=== PATIENT | male | born 1955 | race Caucasian/White ===

== ENCOUNTER → 2017-10-06 | Outpatient (CLI) | payer BC ==
[~2017-10-06] MED LIST: ALPR0.5T PO; CARV6.25 PO; CIPR500T78 PO; CLOP75TA69 PO; FENO145T20; FNST5T PO; HYDR-3876 PO; HYDR1TAB86 PO; HYOS0.1216 PO; NITR-68 PO; NITR0.4T39 SL; NITR100C3 PO; NTR.4SL SL; OMEP20CA12 PO; OXYC-12 PO; PHEN200T27 PO; RANI150T15 PO; TAMS0.4C98 PO; TMSL.4C PO; TRAM50TA2 PO
== END ==
LOC: CARD 11:52
PROVIDERS: ATTEND Internal Medicine Cardiovascular Disease
DX: I25.10 Atherosclerotic heart disease of native coronary artery without angina pectoris (principal); R06.02 Shortness of breath; G45.9 Transient cerebral ischemic attack, unspecified; R42 Dizziness and giddiness; Z87.891 Personal history of nicotine dependence
CPT/HCPCS: 93306

== ENCOUNTER 2020-05-04 16:56 | Observation (INO) | payer MEDICARE, OTHER ==
[~2020-05-04] VITALS: Ht 177.8 cm; Wt 72.6 kg
[~2020-05-04 16:56] MED LIST changes: +ASPI-983 PO; -FENO145T20; +FENO145T26; +OMEP20TA33 PO; +OMG1KC PO; +PANT40SU PO; +RANI-613 PO; -RANI150T15 PO; +ROSU5TAB PO; -TAMS0.4C98 PO; +TRM50T PO
[2020-05-04] MEDS ORDERED: ASPIRIN 81 MG CHEW (CHILDREN'S ASA) PO ONE (17:00)
--- NOTE | 2020-05-04 17:21 | ED Chest Pain ---
General Stated Complaint: CP Source: patient Exam Limitations: no limitations History of Present Illness Date Seen by Provider: May 04, 2020 Time Seen by Provider: 17:16 Initial Comments To ER with reports of chest pain. This pain awakened was described as tight and heavy and was noticed immediately upon awakening this morning. He did have some sweating even while at rest in his house and the air conditioning. This reminds him of his previous heart attacks. He has 3 stents, 2 were placed in [place] and one was placed here by Dr. Arlen nunez states. He lives in [facility]. He went to [facility] 3 weeks ago with a fever of 103 and vomiting. He thought he had coronavirus but was not tested for it. He has been without any symptoms such as cough shortness of breath fevers for 2 weeks now. He did miss one week of his Plavix at the end of March but has taken it for the entire month of April. He missed it at the end of March because of the nausea and vomiting associated with his illness. He took 4 nitroglycerin sublingual today which did help his pain. Primary care provider is Dr. Savage in [facility]. At the time of arrival to ER he is pain-free. 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 (baby aspirin this morning) NTG SL TRANSFORMER REPAIRER: Yes Associated Symptoms: diaphoresis; No nausea/vomiting Allergies and Home Medications Allergies Coded Allergies: ciprofloxacin (Unverified Allergy, Mild, RASH, 12/26/13) PT STATES HE CAN TAKE LEVAQUIN WITHOUT PROBLEM Penicillins (Verified Allergy, Unknown, 02/10/16) Sulfa (Sulfonamide Antibiotics) (Verified Allergy, Unknown, 02/10/16) ketorolac (Verified Allergy, Unknown, 02/10/16) naproxen (Verified Allergy, Unknown, 02/10/16) Home Medications Alprazolam 0.5 Mg Tablet, 0.5 MG PO TID PRN for ANXIETY, (Reported) Aspirin 81 Mg Tablet., 81 MG PO DAILY Prescribed by: JUANY MILLER on 06/17/18 1339 Clopidogrel Bisulfate 75 Mg Tablet, 75 MG PO DAILY, (Reported) Nitroglycerin 0.4 Mg Tab.subl, 0.4 MG SL UD PRN for CHEST PAIN, (Reported) [place] 3 Polyunsat Fatty Acids 1,000 Mg Cap, 1,000 MG PO BID WITH MEALS Prescribed by: MYA BRAND on 06/17/18 0738 Pantoprazole Sodium 40 Mg Granpkt.dr, 40 MG PO DAILY Prescribed by: TE PAYNE on 06/16/18 09 Rosuvastatin Calcium 5 Mg Tablet, 5 MG PO DAILY Prescribed by: TE PAYNE on 06/16/18 09 Tramadol HCl 50 Mg Tablet, 50-100 MG PO QID PRN for PAIN-MODERATE, (Reported) Patient Home Medication List Home Medication List Reviewed: Yes Review of Systems Review of Systems Constitutional: see HPI; No chills; diaphoresis; No fever EENTM: No Symptoms Reported Respiratory: See HPI; Denies Cough, Denies Orthopnea, Denies Shortness of Air Cardiovascular: See HPI, Chest Pain; Denies Palpitations, Denies Syncope Gastrointestinal: Denies Abdominal Pain, Denies Nausea, Denies Vomiting Genitourinary: No Symptoms Reported Musculoskeletal: no symptoms reported Skin: no symptoms reported Psychiatric/Neurological: No Symptoms Reported Endocrine: No Symptoms Reported Past Gufoyjr-Dqwnhy-Nhebdz Hx Patient Social History Drug of Choice: marijuana 2nd Hand Smoke Exposure: Yes Recent Hopitalizations: No Seasonal Allergies Seasonal Allergies: No Past Medical History Surgeries: Yes (testicle removed, hernia repair) Coronary Stent Respiratory: No Cardiac: Yes Coronary Artery Disease, Heart Attack Neurological: Yes Reproductive Disorders: No Genitourinary: No Kidney Stones Gastrointestinal: No Musculoskeletal: No Endocrine: No HEENT: No Cancer: No Psychosocial: No Integumentary: No Blood Disorders: No Adverse Reaction/Blood Tranf: No Family Medical History Abdominal aortic aneurysm G8 BROTHER Alcoholism 19 FATHER Cardiovascular disease 19 MOTHER G8 BROTHER Cataracts PATERNAL GRANDFATHER Diabetes mellitus 19 MOTHER Gastroenteritis 19 MOTHER Hypercholesterolemia 19 MOTHER Hypertension 19 MOTHER G8 BROTHER Myocardial infarction 19 MOTHER G8 BROTHER Neoplasm 19 FATHER (LUNG CANCER) No Pertinent Family Hx Physical Exam Vital Signs Vital Signs - First Documented 05/04/20 05/04/20 17:02 17:04 Temp 36.7 Pulse 61 Resp 20 B/P (MAP) 163/94 (117) Pulse Ox 98 O2 Delivery Room Air Capillary Refill : Height, Weight, BMI Height: 5'10.00" Weight: 168lbs. 8.0oz. [id number]; 24.2 BMI Method:Stated General Appearance: No Apparent Distress, WD/WN, Other (alert and oriented. No diaphoresis, asymptomatic at this time.) Neck: Full Range of Motion, Normal Inspection Respiratory: No Accessory Muscle Use, No Respiratory Distress Cardiovascular: Regular Rate, Rhythm, Normal Peripheral Pulses, Other (his EKG is normal sinus rhythm without ectopy or any ST segment changes) Gastrointestinal: Normal Bowel Sounds, Non Tender, Soft Neurologic/Psychiatric: Alert, Oriented x3 Skin: Normal Color, Warm/Dry Progress/Results/Core Measures Results/Orders Lab Results Laboratory Tests Test 05/04/20 17:06 Range/Units White Blood Count 12.6 H 4.3-11.0 10^3/uL Red Blood Count 5.19 4.35-5.85 10^6/uL Hemoglobin 15.8 13.3-17.7 G/DL Hematocrit 47 40-54 % Mean Corpuscular Volume 91 80-99 FL Mean Corpuscular Hemoglobin 30 25-34 PG Mean Corpuscular Hemoglobin Concent 33 32-36 G/DL Red Cell Distribution Width 13.2 10.0-14.5 % Platelet Count 309 130-400 10^3/uL Mean Platelet Volume 10.2 7.4-10.4 FL Neutrophils (%) (Auto) 74 42-75 % Lymphocytes (%) (Auto) 15 12-44 % Monocytes (%) (Auto) 9 0-12 % Eosinophils (%) (Auto) 1 0-10 % Basophils (%) (Auto) 0 0-10 % Neutrophils # (Auto) 9.4 H 1.8-7.8 X 10^3 Lymphocytes # (Auto) 1.9 1.0-4.0 X 10^3 Monocytes # (Auto) 1.2 H 0.0-1.0 X 10^3 Eosinophils # (Auto) 0.1 0.0-0.3 10^3/uL Basophils # (Auto) 0.0 0.0-0.1 10^3/uL Prothrombin Time 12.7 12.2-14.7 SEC INR Comment 0.9 0.8-1.4 Activated Partial Thromboplast Time 31 24-35 SEC Sodium Level 141 135-145 MMOL/L Potassium Level 4.4 3.6-5.0 MMOL/L Chloride Level 106 98-107 MMOL/L Carbon Dioxide Level 23 21-32 MMOL/L Anion Gap 12 5-14 MMOL/L Blood Urea Nitrogen 16 7-18 MG/DL Creatinine 0.91 0.60-1.30 MG/DL Estimat Glomerular Filtration Rate > 60 BUN/Creatinine Ratio 18 Glucose Level 101 70-105 MG/DL Calcium Level 9.6 8.5-10.1 MG/DL Corrected Calcium 9.4 8.5-10.1 MG/DL Magnesium Level 2.3 1.6-2.4 MG/DL Total Bilirubin 0.9 0.1-1.0 MG/DL Aspartate Amino Transf (AST/SGOT) 127 H 5-34 U/L Alanine Aminotransferase (ALT/SGPT) 95 H 0-55 U/L Alkaline Phosphatase 74 40-136 U/L Myoglobin 21.8 10.0-92.0 NG/ML Troponin I < 0.028 <0.028 NG/ML B-Type Natriuretic Peptide 46.3 <100.0 PG/ML Total Protein 7.2 6.4-8.2 GM/DL Albumin 4.2 3.2-4.5 GM/DL Serum Alcohol < 10 <10 MG/DL My Orders Orders - INDIRA LAGUNAS CHIEF MAINTENANCE SUPERVISOR Cbc With Automated Diff (05/04/20 16:57) Magnesium (05/04/20 16:57) Chest 1 View, Ap/Pa Only (05/04/20 16:57) Ekg Tracing (05/04/20 16:57) Comprehensive Metabolic Panel (05/04/20 16:57) Myoglobin Serum (05/04/20 16:57) Protime With Inr (05/04/20 16:57) Partial Thromboplastin Time (05/04/20 16:57) O2 (05/04/20 16:57) Monitor-Rhythm Ecg Trace Only (05/04/20 16:57) Lipid Panel (05/05/20 06:00) Ed Iv/Invasive Line Start (05/04/20 16:57) BNP (05/04/20 16:57) Troponin I (05/04/20 16:57) Aspirin Chewable Tablet (Baby Aspirin Ch (05/04/20 17:00) Alcohol (05/04/20 18:06) Morphine Injection (Morphine Injection (05/04/20 18:29) Antacid Suspension (Mylanta Suspension (05/04/20 18:30) Lidocaine 2% Viscous 15 Ml (Xylocaine Vi (05/04/20 18:30) Enoxaparin Injection (Lovenox Injection) (05/04/20 18:45) Medications Given in ED Current Medications Medications Dose Ordered Sig/Maryse Route Start Time Stop Time Status Last Admin Dose Admin Al Hydrox/Mg Hydrox/Simethicone 30 ml ONCE ONCE PO 05/04/20 18:30 05/04/20 18:31 DC 05/04/20 18:46 30 ML Aspirin 324 mg ONCE ONCE PO 05/04/20 17:00 05/04/20 17:01 DC 05/04/20 17:23 324 MG Lidocaine HCl 10 ml ONCE ONCE PO 05/04/20 18:30 05/04/20 18:31 DC 05/04/20 18:46 10 ML Vital Signs/I&O 05/04/20 05/04/20 17:02 17:04 Temp 36.7 Pulse 61 Resp 20 B/P (MAP) 163/94 (117) Pulse Ox 98 O2 Delivery Room Air Room Air Diagnostic Imaging Diagonstic Imaging: CT Comments NAME: MARIO NUNEZ [facility] REC#: [id number] PT STATUS: REG ER : 1955 PHYSICIAN: INDIRA LAGUNAS APRN ADMIT DATE: 05/04/20/ER Draft Date of Exam:05/04/20 CHEST 1 VIEW, AP/PA ONLY INDICATION: Chest pain. COMPARISON: Prior examination from 06/15/2019. EXAMINATION: Single view of the chest was obtained. FINDINGS: The heart size, mediastinal configuration and pulmonary vascularity are within normal limits. There is no pleural effusion, pneumothorax or pneumonia. The osseous structures are unremarkable. IMPRESSION: No acute cardiopulmonary abnormality. Dictated on workstation # [id number] Dict: 05/04/201754 Trans: 05/04/201756 [facility] [id number] Interpreted by: JOAQUÍN GAN MD Electronically signed by: Departure Communication (Admissions) Time/Spoke to Admitting Phy: 18:[address] Howard and Dr. Contreras. We will admit serial cardiac Impression Primary Impression: chest pain Additional Impression: Coronary artery disease Disposition: 09 ADMITTED INPATIENT Condition: Stable Admissions Decision to Admit Reason: Admit from ER (General) Decision to Admit/Date: May 04, 2020 Time/Decision to Admit Time: 17:21 Departure-Patient Inst. Referrals: JOSE SAVAGE DO (PCP) Primary Care Physician JOSE ESCOBEDO MD (Family) Primary Care Physician INDIRA LAGUNAS APRN May 04, 2020 17:21
--- OUTSIDE RECORDS SUMMARY | 2020-05-04 17:37 | XMS REPORT | Encounter Summary ---
Author Author [facility] Organization [facility] Address Unknown Phone Unavailable Care Team Providers Care Emergency Department Manager Name Role Phone PCP Unavailable Encounter Details Care Team Description Date Type Department 07/15/2012 [facility] Visit Social History Date Tobacco Use Types Packs/Day Years Used Never Assessed Sex Assigned at Date Recorded Not on file Industry Job Start Date Occupation Not on file Not on file Not on file Travel End Travel History Travel Start No recent travel history available. documented as of this encounter Plan of Treatment Not on filedocumented as of this encounter Visit Diagnoses Not on filedocumented in this encounter
--- OUTSIDE RECORDS SUMMARY | 2020-05-04 17:37 | XMS REPORT | Encounter Summary ---
Author Author [facility] Organization [facility] Address Unknown Phone Unavailable Care Team Providers Care Extrusion Machine Operator Name Role Phone PCP Unavailable Encounter Details Care Team Description Date Type Department 07/16/2012 [facility] C [...]
--- OUTSIDE RECORDS SUMMARY | 2020-05-04 17:37 | XMS REPORT | Encounter Summary ---
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 the head. 3. No acute intracranial perfusion abnormality. 4. Right maxillary sinus disease. IMPRESSION: A 57-year-old right-handed male with stroke-like symptoms and inconsistent exam findings 2. Left hemiparesis. 3. Left visual field deficit. 4. Gait dysfunction. 5. Reported history of transient ischemic attacks. 6. Coronary artery disease status post stent. 7. Dyslipidemia. PLAN: 1. Physical therapy for gait, balance, mobility, and transfers. We will consult social work/case management for assistance with discharge planning. 2. Will discuss with staff physician if occupational therapy is needed. I personally reviewed the history, examined the patient and formulated the plan. I agree with the dictation above. Caroline Mayer DO Dictated By: Meche Arugeta MD cc: Authenticated and Edited by Caroline Mayer DO On 08/04/12 12:39:59 PM ET SWEEPER OPERATOR * Wai Metcalf MD - 12/21/2013 6:[address] SWEEPER OPERATOR REPORT Name: MARIO NUNEZ Date of : 1955 Attending Physician: ANTHONY GARLAND Date of Admission: 07/13/2012 DATE OF SIGN-OFF: 07/17/2012. Mr. Nunez is a gentleman who was on the hospitalist service and we were following for patent foramen ovale, atrial septal aneurysm, and a question of transient ischemic attack. The patient was seen, evaluated, and cared for by Dr. Scott, and we picked up this gentleman midway through his care. He is a 57-year-old male with a reported history of transient ischemic attack. He has known coronary artery disease. He presented to the [facility]. The question arose as to whether he had stroke or transient ischemic attack symptoms. It was ultimately neurology's feeling that neither his MRI scan, nor his symptoms, were consistent with an ischemic event. Moreover, the electroencephalogram did not show any abnormality. Ultimately, it was thought that this may have all been an anxiety-related event. He did undergo transesophageal echocardiogram, which revealed a very small PFO, which was not thought to be contributing to his syndrome. He did have a stress test that showed very mild evidence of ischemia, and we decided with the patient to manage him medically. Because he is INTOLERANT TO ASPIRIN, we did continue him on clopidogrel. He is also on lovastatin and atorvastatin, in addition to carvedilol and amlodipine. We did sign off from his care on 07/17/2012. Wai Metcalf MD Dictated By: cc: ET SWEEPER OPERATOR documented in this encounter Plan of Treatment Not on filedocumented as of this encounter Procedures Comments Procedure Name Priority Date/Time Associated Diag nosis EEG ROUTINE (UP TO 40 07/18/2012 MIN) 9:11 AM CDT GLUCOSE POC Routine 07/17/2012 5:57 PM CDT GLUCOSE POC Routine 07/17/2012 10:22 AM CDT ECHO TRANSESOPHAGEAL Routine 07/17/2012 9:00 AM CDT POTASSIUM Routine 07/17/2012 3:00 AM CDT GLUCOSE POC Routine 07/16/2012 8:58 PM CDT GLUCOSE POC Routine 07/16/2012 4:38 PM CDT US VENOUS DUPLEX LOWER Routine 07/16/2012 EXTREMITY BILAT 8:45 AM CDT GLUCOSE POC Routine 07/16/2012 7:55 AM CDT BASIC METABOLIC PANEL Routine 07/16/2012 5:16 AM CDT GLUCOSE POC Routine 07/15/2012 9:22 PM CDT GLUCOSE POC Routine 07/15/2012 5:[address] CHEST W CONTRAST Routine 07/15/2012 1:15 PM CDT GLUCOSE POC Routine 07/15/2012 12:08 PM CDT TETRAHYDROCANNABINOL Routine 07/15/2012 CONFIRMATION 8:56 AM CDT TOXICOLOGY SCREENING Routine 07/15/2012 PANEL 8:56 AM CDT GLUCOSE POC Routine 07/15/2012 8:27 AM CDT GLUCOSE POC Routine 07/14/2012 8:38 PM CDT MRI HEAD W WO CONTRAST Routine 07/14/2012 5:49 PM CDT GLUCOSE POC Routine 07/14/2012 5:20 PM CDT ECHO TRANSTHORACIC Routine 07/14/2012 3:[address] ABDOMEN PELVIS WO Routine 07/14/2012 CONTRAST 2:13 PM CDT URINE NITRITE Routine 07/14/2012 12:45 PM CDT URINALYSIS (INCLUDES Routine 07/14/2012 MICROSCOPIC REVIEW, IF 12:45 PM CDT INDICATED) CULTURE, URINE Routine 07/14/2012 12:45 PM CDT GLUCOSE POC Routine 07/14/2012 11:52 AM CDT CV MPI PET PHARMOCOLOGIC Routine 07/14/2012 REST STRESS WITHOUT 9:30 AM CDT CALCIUM SCORE GLUCOSE POC Routine 07/14/2012 8:17 AM CDT GLUCOSE POC Routine 07/14/2012 5:08 AM CDT TROPONIN Routine 07/14/2012 3:15 AM CDT LIPID PANEL Routine 07/14/2012 3:15 AM CDT CREATINE KINASE Routine 07/14/2012 3:15 AM CDT COMPREHENSIVE METABOLIC Routine 07/14/2012 PANEL 3:15 AM CDT ACUTE HEPATITIS PANEL Routine 07/14/2012 3:15 AM CDT GLUCOSE POC Routine 07/14/2012 12:23 AM CDT THYROID STIMULATING Routine 07/13/2012 HORMONE 11:22 PM CDT MAGNESIUM Routine 07/13/2012 11:22 PM CDT LIPID PANEL Routine 07/13/2012 11:22 PM CDT LIPASE Routine 07/13/2012 11:22 PM CDT HEMOGLOBIN A1C Routine 07/13/2012 11:22 PM CDT COMPLETE BLOOD COUNT Routine 07/13/2012 11:22 PM CDT COAGULATION SCREEN Routine 07/13/2012 11:22 PM CDT BASIC METABOLIC PANEL Routine 07/13/2012 11:22 PM CDT TROPONIN Routine 07/13/2012 7:[address] ANGIO NECK Routine 07/13/2012 7:[address] ANGIO HEAD AND Routine 07/13/2012 PERFUSION P 7:03 PM CDT XR CHEST SINGLE VIEW Routine 07/13/2012 FRONTAL 6:43 PM CDT documented in this encounter Results * EEG ROUTINE (UP TO 40 MIN) (07/18/2012 9:11 AM CDT) Specimen Transcriptions Kaykay Flowers MD - 12/21/2013 7:[address] SWEEPER OPERATOR REPORT Name: MARIO NUNEZ Date of : 1955 Attending Physician: PHYSICIAN ROSITA Date of Admission: 07/13/2012 PROCEDURE PERFORMED: Electroencephalogram. INDICATION: This is a 57-year-old gentleman with periods of confusion, questionable shaking and left-sided weakness and speech arrest. He has continued left-sided weakness, has and anxiety. FINDINGS: This is a standard 21-channel EEG that was performed in accordance with the international 10-20 system and was of satisfactory technical quality. Photic stimulation was performed. Electrocardiogram recording was part of the study. The electrocardiogram recording showed sinus rhythm throughout. Rate was within normal limits. The underlying electroencephalographic rhythm showed posterior dominant sinusoidal activity in the alpha range of 9 to 10.5 cycles per second. Amplitudes were within normal limits as well. There was no focal slowing seen. There was no epileptiform activity seen. There were characteristic of drowsiness and light sleep seen. No good stage II sleep was captured. There was no significant intermixed theta activity seen. Photic stimulation was performed and was non-activating. IMPRESSION: This is a normal electroencephalogram in the awake and light sleep states. Photic stimulation was normal as well. Clinical correlation is advised. Please note that the absence of epileptiform activity on a single 30 minute EEG does not rule out the possibility of seizures. Kaykay Flowers MD Dictated By: cc: * GLUCOSE POC (07/17/2012 5:57 PM CDT) Only the most recent of 15 results within the time period is included. Glucose POC 120 (H) 70 - 100 MG/DL SUNQUEST Specimen Blood Performing Organization Address City/State[place] Ph one Number [facility] [address] [address] [facility] * ECHO TRANSESOPHAGEAL (07/17/2012 9:00 AM CDT) Specimen Narrative Performed At [facility] RAD Transesophageal Echocardiogram Report Name: MARIO NUNEZ Date: 07/17/2012 09:00 Chart #: [id number] : 1955 Gender: M Location: [facility] Tomo: lorraine Age: 57 Room #: H638 Referring: Za SCOTT Indication - PFO, TIA [phone] Procedure: The patient was kept NPO after midnight . Informed consent was obtained. The procedure was performed in the PACU The patient was s edated with a total of Versed 5 mg IV and Fentanyl 100 mcg IV in addition to Cetacaine spray t o the posterior pharynx. The LEONARDA probe was passed without difficulty. The patient tolerated the procedure and the probe was withdrawn. BP: 129 / 80 HR: 57 Ht: 69 Wt: 161 BSA: 1.89 m2 JESSICA Thrombus: None Interatrial septum: Interatrial septa l aneurysm JESSICA Emptying Velocity: >60 Descending Aortic plaque: Normal LA spontaneous echo contrast:None Aortic arch plaque: Complex R to L shunt at atrial septum:Small nathaniel unt of bubbles Rhythm: Sinus WALL SEGMENT ANALYSIS: ROUTINE LVSI : 1 %FM : 100 LAD : 1 LCX : 1 RCA : 1 FINDINGS Normal left ventricular systolic functi on, with an estimated ejection fraction of 60%. Wall thickness appears normal. Normal ascending aorta. Normal wall motion. Normal left ventricular chamber dimensi ons. Normal right ventricular size and systo lic function. Normal right and left atrial size. Mean left atrial pressure is normal. Normal aortic valve without regurgitati on. Normal mitral valve without regurgitati on. Normal pulmonic valve without regurgita tion. Normal tricuspid valve without regurgit ation. No pericardial effusion. No thrombus seen in the left atrial gamaliel endage. IVC is responsive to inspiration indica ting normal RA pressure. Atrial septal aneurysm with a spontaneo us right to left shunt, following an injection of agitated saline. Complex atherosclerotic plaque on the l john curvature of the aortic arch. Small mobile component noted. No intracardiac masses or thrombi. CONCLUSIONS: 1. Normal left ventricular systolic fun ction, with an estimated ejection fraction of 60%. 2. Normal valves. 3. Atrial septal aneurysm with a patent foramen ovale. 4. Complex atherosclerotic plaque on th e lesser curvature of the aortic arch. Chris Castillo MD (Electronically Signed) Final Date: 17 July 2012 13:11 Procedure Note Interface, Rad Conversion - 01/01/2014 11:47 AM CDT RESULT Transesophageal Echocardiogram Report Name: MARIO NUNEZ Date: 07/17/2012 09:00 Chart #: [id number] : 1955 Gender: M Location: [facility] Tomo: lorraine Age: 57 Room #: H638 Referring: Za SCOTT Indication - PFO, TIA [phone] Procedure: The patient was kept NPO after midnight. Informed consent was obtained. The procedure was performed in the PACU The patient was sedated with a total of Versed 5 mg IV and Fentanyl 100 mcg IV in addition to Cetacaine spray to the posterior pharynx. The LEONARDA probe was passed without difficulty. The patient tolerated the procedure and the probe was withdrawn. BP: 129 / 80 HR: 57 Ht: 69 Wt: 161 BSA: 1.89 m2 JESSICA Thrombus: None Interatrial septum: Interatrial septal aneurysm JESSICA Emptying Velocity: >60 Descending Aortic plaque: Normal LA spontaneous echo contrast:None Aortic arch plaque: Complex R to L shunt at atrial septum:Small amount of bubbles Rhythm: Sinus WALL SEGMENT ANALYSIS: ROUTINE LVSI : 1 %FM : 100 LAD : 1 LCX : 1 RCA : 1 FINDINGS Normal left ventricular systolic function, with an estimated ejection fraction of 60%. Wall thickness appears normal. Normal ascending aorta. Normal wall motion. Normal left ventricular chamber dimensions. Normal right ventricular size and systolic function. Normal right and left atrial size. Mean left atrial pressure is normal. Normal aortic valve without regurgitation. Normal mitral valve without regurgitation. Normal pulmonic valve without regurgitation. Normal tricuspid valve without regurgitation. No pericardial effusion. No thrombus seen in the left atrial appendage. IVC is responsive to inspiration indicating normal RA pressure. Atrial septal aneurysm with a spontaneous right to left shunt, following an injection of agitated saline. Complex atherosclerotic plaque on the lesser curvature of the aortic arch. Small mobile component noted. No intracardiac masses or thrombi. CONCLUSIONS: 1. Normal left ventricular systolic func tion, with an estimated ejection fraction of 60%. 2. Normal valves. 3. Atrial septal aneurysm with a patent foramen ovale. 4. Complex atherosclerotic plaque on the lesser curvature of the aortic arch. Chris Castillo MD (Electronically Signed) Final Date: 17 July 2012 13:11 Performing Organization Address [facility] Ph one Number [facility] [address] [facility] [place] [address] * Potassium (07/17/2012 3:00 AM CDT) Potassium 4.4 3.5 - 5.1 MEQ/L SUNQUEST Specimen Blood Performing Organization Address City/[facility] Ph one Number [facility] [address] [place], [place] [address] SUNQUEST * US Venous Duplex Lower Extremity bilat (07/16/2012 8:45 AM CDT) Specimen Narrative Performed At [facility] Patient: MARIO NUNEZ Phone #: Geoloqi Rec#: [id number] Sex: M : 1955 Hemant#: [id number] Location: [place] [address] Check-in#: [id number] Procedure Requested: [id number] US VENOUS DU PLEX BILAT LOWER EXT Reason For Exam: LIMB SWELLING Exam Ordered: 07/15/2012 203 3 Exam Date/Time: 07/16/2012914 Check-in Date/Time: 07/15/20122145 Attendin HOSPITALISTKAI "" Requestin ALISIA SCOTT Referrin STEFF REFERRING DR Galo Care: [id number] NAE LANDA MD US VENOUS DUPLEX BILATERAL Indication: Leg pain Technique: Ultrasound duplex examinat ion of the bilateral lower extremity venous system was performed. Findings: All visualized segments of the common femoral, greater saphenous, superficial femoral, profund a femoris, popliteal vein are patent with good compressibility and au gmentation. The calf veins are patent. Impression: No bilateral lower extremity DVT. ATTESTATION STATEMENT: The staff radiologist has personally re viewed the images and dictated, reviewed or edited the final report. Signed (Authenticated, Released) Date-T ria: 07/16/2012 1328 [employer]- GARCÍA Veliz, Staff Radiologist Dictated By- GAYLE GOEL M.D., Resid ent Staff Physician- GARCÍA Ramirez, Staff Radiologist Authenticated By- GARCÍA Veliz, Staff Radiologist Procedure Note Interface, Rad Conversion - 12/22/2013 12:[address] SWEEPER OPERATOR REPORT Patient: MARIO NUNEZ Phone #: Geoloqi Rec#: [id number] Sex: M : 1955 Hemant#: [id number] Location: [place] [address] Check-in#: [id number] Procedure Requested: [id number] US VENOUS DUPLEX BILAT LOWER EXT Reason For Exam: LIMB SWELLING Exam Ordered: 07/15/20122032 Exam Date/Time: 07/16/2012914 Check-in Date/Time: 07/15/20122145 Attendin HOSPITALPHYSICIAN JAVI "" Requestin ALISIA SCOTT Referrin NO, REFERRING DR Primary Care: [id number] NAE LANDA MD US VENOUS DUPLEX BILATERAL Indication: Leg pain Technique: Ultrasound duplex examination of the bilateral lower extremity venous system was performed. Findings: All visualized segments of the common femoral, greater saphenous, superficial femoral, profunda femoris, popliteal vein are patent with good compressibility and augmentation. The calf veins are patent. Impression: No bilateral lower extremity DVT. ATTESTATION STATEMENT: The staff radiologist has personally reviewed the images and dictated, reviewed or edited the final report. Signed (Authenticated, Released) Date-Time: 07/16/2012 1328 [employer]- GARCÍA TAN M.D., Staff Radiologist Dictated By- GAYLE GOEL M.D., Resident Staff Physician- GARCÍA TAN M.D., Staff Radiologist Authenticated By- GARCÍA TAN M.D., Staff Radiologist Performing Organization Address City/State/Zipcode Ph one Number [facility] * Basic Metabolic Panel (07/16/2012 5:16 AM CDT) Only the most recent of 2 results within the time period is included. Sodium 141 133 - 147 MEQ/L SUNQUEST Potassium 3.9 3.5 - 5.1 MEQ/L SUNQUEST Chloride 106 96 - 112 MEQ/L SUNQUEST Carbon Dioxide 21 (L) 22 - 30 MEQ/L SUNQUEST Anion Gap 14 3 - 15 SUNQUEST Creatinine 0.9 0.6 - 1.3 MG/DL SUNQUEST Blood Urea 19 7 - 26 MG/DL SUNQUEST Nitrogen Glucose 98 70 - 100 MG/DL SUNQUEST Calcium 9.6 8.4 - 10.2 MG/DL SUNQUEST eGFR Male 87 SUNQUEST Non-AA Comment: Chronic Kidney Disease less than 60 mL/min/1.73 sq.m Kidney failure less than 15 mL/min/1.73 sq.m eGFR Male AA 105 SUNQUEST Comment: Chronic Kidney Disease less than 60 mL/min/1.73 sq.m Kidney failure less than 15 mL/min/1.73 sq.m Specimen Blood Performing Organization Address City/State/Zipcode one Number [facility] [address] [place], [place] [address] SUN[facility] * CT Chest w contrast (07/15/2012 1:15 PM CDT) Specimen Narrative Performed At [facility] Patient: MARIO NUNEZ Phone #: Med Rec#: [id number] Sex: M : 1955 Hemant#: [id number] Location: [facility] H638 01 Check-in#: [id number] Procedure Requested: [id number] CT CHEST W C ONTRAST Reason For Exam: ABN FINDING PREV STUDY SPECIFY Exam Ordered: 07/15/2012 124 1 Exam Date/Time: 07/15/2012 1345 Check-in Date/Time: 07/15/2012 1345 Attendin KAI BECKER "" Requestin MECHE KNOWLES Referrin NO, REFERRING Primary Care: [id number] NAE LANDA MD CT CHEST W CONTRAST INDICATION: ABN FINDING PREV STUDY SP ECIFY Comparison: None. TECHNIQUE: Following the uneventful adm inistration of intravenous contrast ( 65 mL Omnipaque 350 ), axial CT sections were obtained through the lungs and upper abdomen. Co jennifer MIP images and coronal and sagittal multiplanar reconstructions we re also obtained. FINDINGS: Lungs and Airways: No pulmonary nodule, mass, or consolidation. No endoluminal lesion. Pleura: The pleural spaces are normal. Heart and Mediastinum: The visualized p ortions of the thyroid gland are normal in size and attenuation. No axil lorrie or supraclavicular lymphadenopathy. No mediastinal, hilar or retrocrural lymphadenopathy. The heart and pericardium are within no rmal limits. The great vessels of the thorax are normal. Abdomen: Please refer to yesterdays CT of the abdomen and pelvis for findings in the abdomen. Bones and Soft Tissues: The visualized skeletal structures and soft tissues of the chest wall are within no rmal limits. IMPRESSIONS: Unremarkable CT of the tanika st Signed (Authenticated, Released) Date-T ria: 07/15/2012 1422 [employer]- GARCÍA Veliz, Staff Radiologist Dictated By- GARCÍA TAN M.D., Staff Radiologist Staff Physician- GARCÍA Ramirez, Staff Radiologist Authenticated By- GARCÍA Veliz, Staff Radiologist Procedure Note Interface, Rad Conversion - 12/22/2013 12:[address] SWEEPER OPERATOR REPORT Patient: MARIO NUNEZ Phone #: Geoloqi Rec#: [id number] Sex: M : 1955 Hemant#: [id number] Location: [place] [address] Check-in#: [id number] Procedure Requested: [id number] CT CHEST W CONTRAST Reason For Exam: ABN FINDING PREV STUDY SPECIFY Exam Ordered: 07/15/2012 1241 Exam Date/Time: 07/15/2012 1345 Check-in Date/Time: 07/15/2012 1345 Attendin HOSPITALIST, PHYSICIAN "" Requestin MECHE KNOWLES Referrin NO, REFERRING DR Primary Care: [id number] NAE LANDA MD CT CHEST W CONTRAST INDICATION: ABN FINDING PREV STUDY SPECIFY Comparison: None. TECHNIQUE: Following the uneventful administration of intravenous contrast ( 65 mL Omnipaque 350 ), axial CT sections were obtained through the lungs and upper abdomen. Coronal MIP images and coronal and sagittal multiplanar reconstructions were also obtained. FINDINGS: Lungs and Airways: No pulmonary nodule, mass, or consolidation. No endoluminal lesion. Pleura: The pleural spaces are normal. Heart and Mediastinum: The visualized portions of the thyroid gland are normal in size and attenuation. No axillary or supraclavicular lymphadenopathy. No mediastinal, hilar or retrocrural lymphadenopathy. The heart and pericardium are within normal limits. The great vessels of the thorax are normal. Abdomen: Please refer to yesterdays CT of the abdomen and pelvis for findings in the abdomen. Bones and Soft Tissues: The visualized skeletal structures and soft tissues of the chest wall are within normal limits. IMPRESSIONS: Unremarkable CT of the chest Signed (Authenticated, Released) Date-Time: 07/15/2012 1422 [employer]- GARCÍA TAN M.D., Staff Radiologist Dictated By- GARCÍA TAN M.D., Staff Radiologist Staff Physician- GARCÍA TAN M.D., Staff Radiologist Authenticated By- GARCÍA TAN M.D., Staff Radiologist Performing Organization Address City/State[facility] Ph one Number [facility] * Toxicology Screening Panel (07/15/2012 8:56 AM CDT) Acetaminophen Not Detected Not Detected SUNQUEST Urine Amphetamines Not Detected Not Detected SUNQUEST Urine Methamphetamine Not Detected Not Detected SUNQUEST s Urine Barbiturates Not Detected Not Detected SUNQUEST Urine Benzodiazepines Not Detected Not Detected SUNQUEST Urine Cocaine Urine Not Detected Not Detected SUNQUEST Methadone Urine Not Detected Not Detected SUNQUEST Opiates Urine Not Detected Not Detected SUNQUEST Phencyclidine Not Detected Not Detected SUNQUEST Urine Tetrahydrocanna Present (A) Not Detected SUNQUEST binol Urine Tricyclic Not Detected Not Detected SUNQUEST Antidepressants Comment: Toxicology cutoff values: Assay Cutoff value Assay Cutoff value Acetaminophen 5 ug/mL Methadone 300 ng/mL Amphetamines 1000 ng/mL Opiates 300 ng/mL Methamphetamines 1000 ng/mL Phencyclidine 25 ng/mL Barbiturates 300 ng/mL THC 50 ng/mL Benzodiazepines 300 ng/mL Tricyclic Antidepressants 1000 ng/mL Cocaine 300 ng/mL This drug screen provides presumptive results for medical purposes only. False positive results may occur. Confirmatory results will follow for all postive drugs except acetaminophen and tricyclic antidepressants. Specimen Urine Performing Organization Address City/[facility] one Number [facility] [address] [place], [place] [address] SUNQUEST * Tetrahydrocannabinol Confirmation (07/15/2012 8:56 AM CDT) Tetrahydrocanna See comments SUNQUEST binol Comment: Confirmation Marijuana metabolite (THCA) was detected. Technique: Gas Chromatography / Mass Spectroscopy Detectable Drugs: Marijuana metabolite (THCA) Test performed by [facility] [address] [address] Specimen Urine Performing Organization Address City/State/Zipcode one Number [facility] [address] [place], [place] [address] SUNQUEST * MRI Head w wo contrast (07/14/2012 5:49 PM CDT) Specimen Narrative Performed At [facility] Patient: MARIO NUNEZ Phone #: Geoloqi Rec#: [id number] Sex: M : 1955 Hemant#: [id number] Location: [facility] H638 01 Check-in#: [id number] Procedure Requested: [id number] MRI HEAD W W O CONTRAST Reason For Exam: tia Exam Ordered: 07/14/2012 074 7 Exam Date/Time: 07/14/2012 1830 Check-in Date/Time: 07/14/2012 1759 Attendin HOSPITALISTKAI "" Requestin CHRIS MELENDEZ Referrin NO, REFERRING DR Primary Care: [id number] NAE LANDA MD MRI HEAD W WO CONTRAST EXAM TIME/DATE: Jul 14, 2012 06:30:00 PM INDICATION/HISTORY: Transient ischemi c attack. Blurred vision. Slurred speech. Right facial droop. Left-sided weakness. Hypertension. COMPARISON: None. TECHNIQUE: MRI of the brain was perform ed in multiple sequences and planes with and without 15 cc Omniscan IV contrast. FINDINGS: No abnormal restricted diffusion. No gr adient susceptibility artifact. No abnormal enhancement. Subtle age-appropriate paraventricular areas of FLAIR and T2 hyperintense signal. Normal ventricular size and configurati on. Normal corpus callosum morphology and signal intensity. No p osterior fossa abnormalities. Normal pituitary gland and sella. Nor mal brainstem and upper cervical spinal cord. No displacement of crani ocervical junction structures. Normal bilateral carotid and basilar ar myla flow voids. Normal superior sagittal sinus flow void. Normal scalp and calvarium. Normal orbi ts and globes. Clear visualized mastoids. Right maxillary mucoperiostea l thickening, small right sphenoid air-fluid level, and scattered ethmoid air cell sinus disease. IMPRESSION: No evidence for acute ischemic stroke. Subtle age-appropriate areas of periventricular FLAIR and T2 hyperinten se signal, likely representing the sequela of chronic small vessel isc hemic disease. No abnormal areas of enhancement. ATTESTATION STATEMENT: The staff radiologist has personally re viewed the images and dictated, reviewed, or edited the final report. INTERPRETATION SITE: [facility] Signed (Authenticated, Released) Date-T ria: 07/15/2012 1054 [employer]- PATRICK LANDRUM M.D., Staff Radiologist Dictated By- JANETT OSCAR M.D., Resid ent Staff Physician- PATRICK LANDRUM M.D., Azael guzman Radiologist Authenticated By- PATRICK LANDRUM M.D., Staff Radiologist Procedure Note Interface, Rad Conversion - 12/22/2013 12:[address] SWEEPER OPERATOR REPORT Patient: MARIO NUNEZ Phone #: Geoloqi Rec#: [id number] Sex: M : 1955 Hemant#: [id number] Location: [place] [address] Check-in#: [id number] Procedure Requested: [id number] MRI HEAD W WO CONTRAST Reason For Exam: tia Exam Ordered: 07/14/2012 0747 Exam Date/Time: 07/14/2012 1830 Check-in Date/Time: 07/14/2012 1759 Attendin HOSPITALIST, PHYSICIAN "" Requestin CHRIS MELENDEZ Referrin NO, REFERRING DR Primary Care: [id number] NAE LANDA MD MRI HEAD W WO CONTRAST EXAM TIME/DATE: Jul 14, 2012 06:30:00 PM INDICATION/HISTORY: Transient ischemic attack. Blurred vision. Slurred speech. Right facial droop. Left-sided weakness. Hypertension. COMPARISON: None. TECHNIQUE: MRI of the brain was performed in multiple sequences and planes with and without 15 cc Omniscan IV contrast. FINDINGS: No abnormal restricted diffusion. No gradient susceptibility artifact. No abnormal enhancement. Subtle age-appropriate paraventricular areas of FLAIR and T2 hyperintense signal. Normal ventricular size and configuration. Normal corpus callosum morphology and signal intensity. No posterior fossa abnormalities. Normal pituitary gland and sella. Normal brainstem and upper cervical spinal cord. No displacement of craniocervical junction structures. Normal bilateral carotid and basilar artery flow voids. Normal superior sagittal sinus flow void. Normal scalp and calvarium. Normal orbits and globes. Clear visualized mastoids. Right maxillary mucoperiosteal thickening, small right sphenoid air-fluid level, and scattered ethmoid air cell sinus disease. IMPRESSION: No evidence for acute ischemic stroke. Subtle age-appropriate areas of periventricular FLAIR and T2 hyperintense signal, likely representing the sequela of chronic small vessel ischemic disease. No abnormal areas of enhancement. ATTESTATION STATEMENT: The staff radiologist has personally reviewed the images and dictated, reviewed, or edited the final report. INTERPRETATION SITE: [facility] [place]. Signed (Authenticated, Released) Date-Time: 07/15/2012 1054 [employer] Content Marketing- PATRICK LANDRUM M.D., Staff Radiologist Dictated By- JANETT OSCAR M.D., Resident Staff Physician- PATRICK LANDRUM M.D., Staff Radiologist Authenticated By- PATRICK LANDRUM M.D., Staff Radiologist Performing Organization Address City/State/[facility] Ph one Number [place] * ECHO TRANSTHORACIC (07/14/2012 3:35 PM CDT) Specimen Narrative Performed At [facility] RAD ECHOCARDIOGRAM REPORT [facility] Name: MARIO NUNEZ Date: 07/14/2012 15:35 Chart #: [id number] : 1955 Location: [facility] IP Sono: [email or web address] Age: 57 Gender: M Referring: NICKI NORMAN Room #: 638 Fellow: Indication Chest pain, TIA Procedure -[id number] Complete Echo 2D/Color flow/Doppler BP: 132 / 71 HR: 61 Ht: 69 Wt: 161 BSA: 1.9 2D ECHO MEASUREMENTS LV Diastolic Diameter Bas 4.8 cm 3.6-5.4 LVPW Diastolic Thickness 0.9 cm 0.6-1.1 LV Systolic Diameter Base 3.3 cm 2.3-4.0 Aorta at Sinuses Diameter 3.6 cm 2.1-3.5 IVS Diastolic Thickness 1 cm 0.6-1.1 Ascending Aorta Diameter 3.1 cm 2.1-3.4 AORTIC VALVE DOPPLER AV Peak Velocity 164 cm/ s LVOT AV Huan Ratio 0.81 AV Peak Gradient 10.7 mm Hg MITRAL VALVE DOPPLER Mitral E Point Velocity 63.4 cm/s Mitral E to A Ratio 0.99 Mitral A Point Velocity 64.3 cm/s MV Deceleration Time 257 ms WALL SEGMENT ANALYSIS: ROUTINE LVSI : 1 %FM : 100 LAD : 1 LCX : 1 RCA : 1 FINDINGS LV Ejection Fraction: 65 Normal left ventricular systolic functi on, with an estimated ejection fraction of 65%. Normal wall thickness. Normal wall motion. Normal left ventricular chamber dimensi ons. Normal right ventricular size and systo lic function. Normal right and left atrial size. Mild diastolic dysfunction - normal LA pressure with mild abnormality in LV relaxation. Normal aortic valve without regurgitati on. Normal mitral valve without regurgitati on. Normal pulmonic valve with trivial regu rgitation. Normal tricuspid valve without regurgit ation. Unable to accurately estimate pulmonary artery pressure. No pericardial effusion. IVC is responsive to inspiration indica ting normal RA pressure. Normal ascending aorta. No obvious intracardiac masses or throm bi. Patent foramen ovale, with evidence of right to left shunt following a bolus of agitated saline. CONCLUSIONS: 1. Normal left ventricular systolic f unction, with an estimated ejection fraction of 65%. 2. No significant valvular abnormalit ies. 3. Patent foramen ovale, with evidenc e of right to left shunt following a bolus of agitated saline. Alin Crawford M.D. (Electronically Signed) Final Date: 14 July 2012 17:07 Procedure Note Interface, Rad Conversion - 01/01/2014 11:47 AM CDT RESULT ECHOCARDIOGRAM REPORT [facility] Name: MARIO NUNEZ Date: 07/14/2012 15:35 Chart #: [id number] : 1955 [email or web address] Age: 57 Gender: M Referring: NICKI NORMAN Room #: 638 Fellow: Indication Chest pain, TIA Procedure -[id number] Complete Echo 2D/Colorflow/Doppler BP: 132 / 71 HR: 61 Ht: 69 Wt: 161 BSA: 1.9 2D ECHO MEASUREMENTS LV Diastolic Diameter Bas 4.8 cm 3.6-5.4 LVPW Diastolic Thickness 0.9 cm 0.6-1.1 LV Systolic Diameter Base 3.3 cm 2.3-4.0 Aorta at Sinuses Diameter 3.6 cm 2.1-3.5 IVS Diastolic Thickness 1 cm 0.6-1.1 Ascending Aorta Diameter 3.1 cm 2.1-3.4 AORTIC VALVE DOPPLER AV Peak Velocity 164 cm/s LVOT AV Huan Ratio 0.81 AV Peak Gradient 10.7 mmHg MITRAL VALVE DOPPLER Mitral E Point Velocity 63.4 cm/s Mitral E to A Ratio 0.99 Mitral A Point Velocity 64.3 cm/s MV Deceleration Time 257 ms WALL SEGMENT ANALYSIS: ROUTINE LVSI : 1 %FM : 100 LAD : 1 LCX : 1 RCA : 1 FINDINGS LV Ejection Fraction: 65 Normal left ventricular systolic function, with an estimated ejection fraction of 65%. Normal wall thickness. Normal wall motion. Normal left ventricular chamber dimensions. Normal right ventricular size and systolic function. Normal right and left atrial size. Mild diastolic dysfunction - normal LA pressure with mild abnormality in LV relaxation. Normal aortic valve without regurgitation. Normal mitral valve without regurgitation. Normal pulmonic valve with trivial regurgitation. Normal tricuspid valve without regurgitation. Unable to accurately estimate pulmonary artery pressure. No pericardial effusion. IVC is responsive to inspiration indicating normal RA pressure. Normal ascending aorta. No obvious intracardiac masses or thrombi. Patent foramen ovale, with evidence of right to left shunt following a bolus of agitated saline. CONCLUSIONS: 1. Normal left ventricular systolic fun ction, with an estimated ejection fraction of 65%. 2. No significant valvular abnormalitie s. 3. Patent foramen ovale, with evidence of right to left shunt following a bolus of agitated saline. Alin Crawford M.D. (Electronically Signed) Final Date: 14 July 2012 17:07 Performing Organization Address City/State/Zipcode Ph one Number [facility] CARDIOLOGY [facility] RAD [address] [facility] [place] [address] * CT Abdomen Pelvis wo contrast (07/14/2012 2:13 PM CDT) Specimen Narrative Performed At [facility] Patient: MARIO NUNEZ Phone #: Geoloqi Rec#: [id number] Sex: M : 1955 Hemant#: [id number] Location: [place] [address] Check-in#: [id number] Procedure Requested: [id number] CT ABD PELVI S WO CONTRAST. Reason For Exam: ABDOMINAL PAIN Exam Ordered: 07/14/2012 133 2 Exam Date/Time: 07/14/2012 1423 Check-in Date/Time: 07/18/2012 0636 Attendin HOSPITALIST, KAI DSOUZA "" Requestin CHRIS MELENDEZ Referrin STEFF, REFERRING DR Primary Care: [id number] NAE LANDA MD CT ABD PELVIS WO CONTRAST. INDICATION: ABDOMINAL PAIN. History of kidney stones. COMPARISON: None. TECHNIQUE: Noncontrast CT of the abdomen and pelvi s. Coronal and sagittal reformatted images were performed. FINDINGS: Lack of intravenous contras t limits evaluation of solid abdominal organs and vascular structure s. Lower chest: The visualized portions of the lung are clear. The heart is normal in size without pericardial effusion. ABDOMEN: No free air, free fluid, or fluid colle ction. Liver: The noncontrast liver is homogen eous in attenuation. Gallbladder and biliary: Normal gallbla dder with vicarious excretion of contrast. Normal caliber bile ducts. Spleen: Normal spleen. Pancreas: The noncontrast pancreas is h omogeneous in attenuation without peripancreatic inflammatory changes. Adrenal glands: Normal adrenal glands. Kidneys and ureters: Nonobstructive 7 m m renal calculus in the superior pole and 3 mm renal calculus in the mid portion of the left kidney. Normal right kidney. No hydronephrosis and hydroureter. GI tract: Distal esophagus is normal. T he stomach is decompressed and poorly evaluated. Normal caliber small bowel and colon. Residual contrast material in the colon. Normal appendix. Vascular structures: Limited evaluation of the vasculature due to lack of IV contrast. Normal caliber abdomina l aorta with mild atherosclerotic calcification. Lymph nodes: No lymphadenopathy in the abdomen or pelvis. PELVIS: Prostate and seminal vesicles are julius l in appearance. Urinary bladder is well distended without wall thickeni ng. SKELETAL STRUCTURES AND SOFT TISSUES: N o fracture or destructive lesion in the visualized skeleton. Degenerativ e changes at the lumbosacral junction. Small fat containing umbilica l hernia. IMPRESSION: 1. Two nonobstructing renal calculi in the left kidney, largest measuring 7 mm. 2. Vicarious excretion of contrast mate rial in the gallbladder. ATTESTATION STATEMENT: The Staff Radiologist has personally re viewed the images and dictated, reviewed, or edited the final report. READING SITE: [facility]. Signed (Authenticated, Released) Date-T ria: 07/14/2012 1539 [employer] Content Marketing- CHERY DIMAS M.D. , Staff Radiologist Dictated By- TAYO BRICE D.O., Resident Staff Physician- CHERY DIMAS M.D., Staff Radiologist Authenticated By- CHERY DIMAS M.D. , Staff Radiologist Procedure Note Interface, Rad Conversion - 12/21/2013 11:[address] SWEEPER OPERATOR REPORT Patient: MARIO NUNEZ Phone #: Geoloqi Rec#: [id number] Sex: M : 1955 Hemant#: [id number] Location: [place] [address] Check-in#: [id number] Procedure Requested: [id number] CT ABD PELVIS WO CONTRAST. Reason For Exam: ABDOMINAL PAIN Exam Ordered: 07/14/2012 1332 Exam Date/Time: 07/14/2012 1423 Check-in Date/Time: 07/18/2012 0636 Attendin HOSPITALIST, PHYSICIAN "" Requestin CHRIS MELENDEZ Referrin NO, REFERRING DR Primary Care: [id number] NAE LANDA MD CT ABD PELVIS WO CONTRAST. INDICATION: ABDOMINAL PAIN. History of kidney stones. COMPARISON: None. TECHNIQUE: Noncontrast CT of the abdomen and pelvis. Coronal and sagittal reformatted images were performed. FINDINGS: Lack of intravenous contrast limits evaluation of solid abdominal organs and vascular structures. Lower chest: The visualized portions of the lung are clear. The heart is normal in size without pericardial effusion. ABDOMEN: No free air, free fluid, or fluid collection. Liver: The noncontrast liver is homogeneous in attenuation. Gallbladder and biliary: Normal gallbladder with vicarious excretion of contrast. Normal caliber bile ducts. Spleen: Normal spleen. Pancreas: The noncontrast pancreas is homogeneous in attenuation without peripancreatic inflammatory changes. Adrenal glands: Normal adrenal glands. Kidneys and ureters: Nonobstructive 7 mm renal calculus in the superior pole and 3 mm renal calculus in the midportion of the left kidney. Normal right kidney. No hydronephrosis and hydroureter. GI tract: Distal esophagus is normal. The stomach is decompressed and poorly evaluated. Normal caliber small bowel and colon. Residual contrast material in the colon. Normal appendix. Vascular structures: Limited evaluation of the vasculature due to lack of IV contrast. Normal caliber abdominal aorta with mild atherosclerotic calcification. Lymph nodes: No lymphadenopathy in the abdomen or pelvis. PELVIS: Prostate and seminal vesicles are normal in appearance. Urinary bladder is well distended without wall thickening. SKELETAL STRUCTURES AND SOFT TISSUES: No fracture or destructive lesion in the visualized skeleton. Degenerative changes at the lumbosacral junction. Small fat containing umbilical hernia. IMPRESSION: 1. Two nonobstructing renal calculi in t he left kidney, largest measuring 7 mm. 2. Vicarious excretion of contrast mater ial in the gallbladder. ATTESTATION STATEMENT: The Staff Radiologist has personally reviewed the images and dictated, reviewed, or edited the final report. READING SITE: [facility]. Signed (Authenticated, Released) Date-Time: 07/14/2012 1539 [employer] Content Marketing- CHERY DIMAS M.D., Staff Radiologist Dictated By- TAYO BRICE D.O., Resident Staff Physician- CHERY DIMAS M.D., Staff Radiologist Authenticated By- CHERY DIMAS M.D., Staff Radiologist Performing Organization Address [facility] Ph one Number [facility] * Culture, Urine (07/14/2012 12:45 PM CDT) Specimen Urine Narrative Performed At [facility] Specimen/Source: URINE/CLEAN VOIDED UR Collected: 07/14/2012 12:45 Status: Final Last Updated: 22:13 Culture result (Final) No growth Performing Organization Address [facility] one Number RL [address] [place] [address] SUNQUEST * Urine Nitrite (07/14/2012 12:45 PM CDT) Nitrite Urine Negative Negative [facility] Specimen Urine Performing Organization Address [facility] one Number RL [address] [place] [address] [place] * Urinalysis (07/14/2012 12:45 PM CDT) Appearance, Yellow [facility] Urine Specific 1.014 1.001 - 1.030 SUN[facility] [place], UA PH Urine 7.0 5.0 - 8.0 SUNQUEST Hemoglobin Negative Negative [facility] Urine Leukocyte Negative Negative [facility] Esterase Bilirubin Urine Negative Negative SUNQUEST Glucose Urine Negative Negative MG/DL [facility] Ketones Urine Moderate (A) Negative MG/DL SUNQUEST Protein Urine Negative Negative MG/DL [facility] Qual Urobilinogen Negative Negative EU/DL SUNQUEST Urine Specimen Urine Performing Organization Address [facility] one Number [id number] [place] [address] SUNQUEST * CV MPI PET Pharmocologic Rest Stress without Calcium Score (07/14/2012 9:30 AM CDT) Specimen Narrative Performed At NAME: MARIO NUNEZ [facility] RAD : [id number] AGE: 57 GENDER: M ACCOUNT NUM: [id number] TEST: REST/STRESS REGADENOSDANA CASTANEDAU M-82 PET/CT REPORT TEST DATE: TEST LOCATION: REFERRING PHYSICIAN: Chris Melendez MD SUPERVISING PHYSICIAN: Jabier harrell MD MEDICATIONS MEDS LAST 24 HOURS: Amlodipine, Protoni x MEDS HELD LAST 24 HOURS: N/A ALLERGIES: pcn, sulfa HOURS SINCE LAST CAFFEINE: 24 INDICATIONS FOR TEST: Known CAD, Shortn ess of Breath/Dyspnea, Hyperlipidemia, Hypertension, Smoker, Positive Family H istory, Abnormal ECG, Atypical Angina REASON FOR PHARMICOLOGICAL STRESS: Pet Imaging PROCEDURAL NOTE: An intravenous line wa s inserted and an infusion of normal saline was started. A CT scan was acqui red for attenuation correction of the rest image (10 mA, 120 kVp, 4.24 secs) during end-expiration breath-holding, ECG-gating and dose modulation. This was followed by infusion of 45 mCi of Rb-82, 60 to 100 seconds after which re sting images were acquired in list mode with ECG-gating. Following rest imagi ng, A total of 0.4mg regadenoson was injected over 10 seconds at a dosage of 0.08mg/ml immediately followed by a 5ml normal saline flush.Within 20 secon ds, 45 mCi of Rb-82 was infused. Peak stress images were acquired in list mod e with ECG-gating, starting 30 seconds after the the beginning of the infusion of Rb-82 and continuing for 5.[address] scan was acquired for a ttenuation correction of the stress image (10 mA, 120 kVp, 4.24 secs) durin g end-expiration breath-holding. <B>CLINICAL RESPONSE:</B> The heart r ate at rest was 64 beats per minute. After the regadenoson infusion the hear t rate was 97 beats per minute. The blood pressure at baseline was 141/74 mmHg. At the end of the regadenoson infusion it was 126/65 mmHg. The p atient experienced the following symptoms during the test: None SCHNEIDER TREADMILL SCORE: N/A ECG Findings: The resting 12-lead kristy ctrocardiogram showed sinus rhythm with voltages suggestive for left ventricula r hypertrophy, poor progression of R waves across the anterior leads. During stress there were no significant ECG changes. No significant arrhythmias wer e detected. Scintographic Findings: The tomograph ic images show a mild to moderate reversible perfusion abnormality inferi guy and inferoseptally. The left ventricle does not dilate with stress. The gated tomograms show normal wall motion and thickening in all areas. The left ventricular ejection fraction at rest is 72%, 73% post stress. IN SUMMARY, the clinical, electrocardio graphic, and scintigraphic findings in this 57-year-old male being evaluated f or ischemia using regadenoson are as follows: 1. Clinical response: Non-Di agnostic (Regadenoson) 2. Electrocardiographic response: Non-Diag nostic (baseline abnormalities), 3. Scintigraphic response: Ischemic COMBINED TEST RESULTS: Localized area of mild to moderate ischemia in the distribution of the right coronary markos ry.Computer quantitation identifies 6% of the left ventricle as being ischemic .Normal left ventricular systolic function. Left ventricular ejection fra ction at rest is 72%.Test results were verbally communicated on date of dictat ion at approximately 1500 hours. Cezar Hollis MD [address] [facility], [address] [place] [address] DICTATED DATE: 2012-07-14 00:00:00.0 TREE AND SHRUB WORKER DATETIME: 2012-07-14 18:1 0:28.0 ACTUAL TEST TIME: PROVIDER APPROVAL DATETIME: 2012-07-14 18:15:28.0 Procedure Note Interface, Rad Conversion - 01/01/2014 11:48 AM CDT NAME: MARIO NUNEZ : [id number] AGE: 57 GENDER: M ACCOUNT NUM: [id number] TEST: REST/STRESS REGADENOSON RUBIDIUM-82 PET/CT REPORT TEST DATE: TEST LOCATION: REFERRING PHYSICIAN: Chris Melendez MD SUPERVISING PHYSICIAN: Jabier Loyd MD MEDICATIONS MEDS LAST 24 HOURS: Amlodipine, Protonix MEDS HELD LAST 24 HOURS: N/A ALLERGIES: pcn, sulfa HOURS SINCE LAST CAFFEINE: 24 INDICATIONS FOR TEST: Known CAD, Shortness of Breath/Dyspnea, Hyperlipidemia, Hypertension, Smoker, Positive Family History, Abnormal ECG, Atypical Angina REASON FOR PHARMICOLOGICAL STRESS: Pet Imaging PROCEDURAL NOTE: An intravenous line was inserted and an infusion of normal saline was started. A CT scan was acquired for attenuation correction of the rest image (10 mA, 120 kVp, 4.24 secs) during end-expiration breath-holding, ECG-gating and dose modulation. This was followed by infusion of 45 mCi of Rb-82, 60 to 100 seconds after which resting images were acquired in list mode with ECG-gating. Following rest imaging, A total of 0.4mg regadenoson was injected over 10 seconds at a dosage of 0.08mg/ml immediately followed by a 5ml normal saline flush.Within 20 second s, 45 mCi of Rb-82 was infused. Peak stress images were acquired in list mode with ECG-gating, starting 30 seconds after the the beginning of the infusion of Rb-82 and continuing for 5.[address] scan was acquired for attenuation correction of the stress image (10 mA, 120 kVp, 4.24 secs) during end-expiration breath-holding. <B>CLINICAL RESPONSE:</B> The heart rate at rest was 64 beats per minute. After the regadenoson infusion the heart rate was 97 beats per minute. The blood pressure at baseline was 141/74 mmHg. At the end of the regadenoson infusion it was 126/65 mmHg. The patient experienced the following symptoms during the test: None SCHNEIDER TREADMILL SCORE: N/A ECG Findings: The resting 12-lead electrocardiogram showed sinus rhythm with voltages suggestive for left ventricular hypertrophy, poor progression of R waves across the anterior leads. During stress there were no significant ECG changes. No significant arrhythmias were detected. Scintographic Findings: The tomographic images show a mild to moderate reversible perfusion abnormality inferiorly and inferoseptally. The left ventricle does not dilate with stress. The gated tomograms show normal wall motion and thickening in all areas. The left ventricular ejection fraction at rest is 72%, 73% post stress. IN SUMMARY, the clinical, electrocardiographic, and scintigraphic findings in this 57-year-old male being evaluated for ischemia using regadenoson are as follows: 1. Clinical response: Non-Diagnostic (Regadenoson) 2. Electrocardiographic response: Non-Diagnostic (baseline abnormalities), 3. Scintigraphic response: Ischemic COMBINED TEST RESULTS: Localized area of mild to moderate ischemia in the distribution of the right coronary artery.Computer quantitation identifies 6% of the left ventricle as being ischemic.Normal left ventricular systolic function. Left ventricular ejection fraction at rest is 72%.Test results were verbally communicated on date of dictation at approximately 1500 hours. Cezar Hollis MD [address] [facility], [address] [place] [address] DICTATED DATE: 2012-07-14 00:00:00.0 T[employer] AND [employer] WORKER DATETIME: 2012-07-14 18:10:28.0 ACTUAL TEST TIME: PROVIDER APPROVAL DATETIME: 2012-07-14 18:15:28.0 Performing Organization Address [facility] Ph one Number [facility] RAD [address] [facility] [place] [address] * Acute Hepatitis Panel (07/14/2012 3:15 AM CDT) Hepatitis B Non-reactive Non-reactive [facility] Surface Ag Hepatitis B Non-reactive Non-reactive [facility] Core Ab IgM Hepatitis A Ab Non-reactive Non-reactive [facility] IgM Hepatitis C Ab Non-reactive Non-reactive [facility] Specimen Blood Performing Organization Address [facility] one Number [facility] [address] [place], [place] [address] [place] * Comprehensive Metabolic Panel (07/14/2012 3:15 AM CDT) Albumin 3.6 3.5 - 5.0 G/DL [facility] Aspartate 27 15 - 46 IU/L [facility]QUEST Aminotransferas e Bilirubin Total 1.0 0.2 - 1.3 MG/DL SUN[facility] Protein Total 6.2 6.0 - 8.2 G/DL SUNQUEST Serum Calcium 9.2 8.4 - 10.2 MG/DL SUNQUEST Creatinine 0.8 0.6 - 1.3 MG/DL SUNQUEST Glucose 90 70 - 100 MG/DL SUN[facility] Alkaline 58 42 - 128 IU/L SUNQUEST Phosphatase Sodium 140 133 - 147 MEQ/L [facility] Potassium 4.2 3.5 - 5.1 MEQ/L SUNQUEST Chloride 108 96 - 112 MEQ/L [facility] Carbon Dioxide 23 22 - 30 MEQ/L [facility] Blood Urea 13 7 - 26 MG/DL [facility] Nitrogen Anion Gap 9 3 - 15 SUNQUEST Alanine 30 13 - 69 IU/L SUNQUEST Aminotransferas e eGFR Male 99 SUNQUEST Non-AA Comment: Chronic Kidney Disease less than 60 mL/min/1.73 sq.m Kidney failure less than 15 mL/min/1.73 sq.m eGFR Male AA 120 SUNQUEST Comment: Chronic Kidney Disease less than 60 mL/min/1.73 sq.m Kidney failure less than 15 mL/min/1.73 sq.m Specimen Blood Performing Organization Address [facility] one Number AMOLL [address] [place] [address] [place] * Creatine Kinase (07/14/2012 3:15 AM CDT) Creatine Kinase 51 IU/L [facility]QUEST Comment: White Female: 30 - 160 IU/L Black Female: 30 - 430 IU/L White Male: 40 - 425 IU/L Black Male: 50 - 850 IU/L Specimen Blood Performing Organization Address [facility] one Number [facility] [address] [place] [address] [place]QUEST * Lipid Panel (07/14/2012 3:15 AM CDT) Only the most recent of 2 results within the time period is included. Cholesterol 235 (H) 100 - 200 MG/DL [facility] Triglycerides 80 0 - 150 MG/DL [facility] HDL Cholesterol 47 40 - 110 MG/DL [facility] LDL Cholesterol 172 (H) 0 - 99 MG/DL [facility] Cholesterol/HDL 5.0 (H) 0.0 - 4.5 SUNQUEST Ratio Non-HDL 188 (H) 0 - 130 MG/DL [facility]QUEST Cholesterol Specimen Blood Performing Organization Address [facility] one Number SLOAN [address] [phone] 11 SUNQUEST * Troponin (07/14/2012 3:15 AM CDT) Only the most recent of 2 results within the time period is included. Troponin <0.01 0.00 - 0.03 NG/ML SUNQUEST Comment: Troponin Value Interpretation 0.00 - 0.03 Healthy 0.04 - 0.12 Increased Cardiac Risk >0.12 Myocardial Infarction Troponin may not become elevated until 6 to 8 hours after onset of symptoms. Specimen Blood Performing Organization Address [facility] one Number EVANRRobert [address] [phone] SUNQUEST * Complete Blood Count (07/13/2012 11:22 PM CDT) WBC 9.93 4.00 - 11.00 TH/UL SUNQUEST RBC 5.06 4.31 - 5.84 MIL/UL SUNQUEST Hemoglobin 15.8 13.0 - 17.0 G/DL SUNQUEST Hematocrit 45 40 - 50 % SUNQUEST MCV 89 80 - 99 FL SUNQUEST MCH 31 27 - 34 PG SUNQUEST MCHC 35 32 - 36 % SUNQUEST RDW 12.9 9.0 - 14.5 % SUNQUEST Platelet Count 231 140 - 400 TH/UL SUNQUEST MPV 10.9 9.4 - 12.3 FL SUNQUEST Specimen Blood Performing Organization Address [facility] one Number SLRL [address] [phone] 11 SUNQUEST * Coagulation Screen (07/13/2012 11:22 PM CDT) Protime 14.0 11.7 - 14.3 SEC SUNQUEST INR 1.1 0.9 - 1.1 SUNQUEST APTT 34 22 - 34 SEC SUNQUEST Fibrinogen 373 146 - 390 MG/DL SUNQUEST Assay Specimen Blood Performing Organization Address [facility] one Number SLRL [address] [phone] 11 SUNQUEST * Thyroid Stimulating Hormone (07/13/2012 11:22 PM CDT) Thyroid 4.40 0.47 - 4.68 UIU/ML SUNQUEST Stimulating Hormone Specimen Blood Performing Organization Address [facility] one Number SLRL [address] [phone] 11 SUNQUEST * Lipase (07/13/2012 11:22 PM CDT) Lipase 82 23 - 300 IU/L SUNQUEST Specimen Blood Performing Organization Address [facility] one Number SLRL [address] [phone] 11 SUNQUEST * Magnesium (07/13/2012 11:22 PM CDT) Magnesium 2.2 1.4 - 2.7 MG/DL SUNQUEST Specimen Blood Performing Organization Address [facility] one Number SLRL [address] [phone] 11 SUNQUEST * Hemoglobin A1C (07/13/2012 11:22 PM CDT) HEMOGLOBIN A1C 5.5 4.0 - 5.6 % SUNQUEST Comment: Non-diabetic 4.0 - 5.6 % Prediabetes 5.7 - 6.4 % Diabetes >= 6.5 % Specimen Blood Performing Organization Address City/State/Zipcode Ph one Number SLRL [address] [place], [place] [address] 11 SUNQUEST * CT Angio Neck (07/13/2012 7:04 PM CDT) Specimen Narrative Performed At [facility] Patient: MARIO NUNEZ Phone #: Geoloqi Rec#: [id number] Sex: M : 1955 Hemant#: [id number] Location: [place] [address] Check-in#: [id number] Procedure Requested: [id number] CT ANGIO NEC K Reason For Exam: TIA Exam Ordered: 07/13/2012 182 6 Exam Date/Time: 07/13/2012 1935 Check-in Date/Time: 07/13/20121826 Attendin HOSPITALISTKAI "" Requestin ALCIRAPOONAMMARIO A Referrin NO, REFERRING DR Primary Care: [id number] NAE LANDA MD CT ANGIO NECK Jul 13, 2012 07:35:00 PM Indication: TIA Comparison: None. Technique: Multiple axial tomographic images of the head and neck were obtained without contrast. CT angiogr am of neck was obtained with bolus injection of 75 cc of Omnipaque 350. The images were sent to workstation and 3D volume rendering was performed. Findings: Mild atheromatous plaque at the origin of the right innominate artery without significant stenosis. The carot id and vertebral origins appear intact. The right vertebral artery is dominant. Both carotid bifurcations are normal. Both carotid and vertebral demonstrate normal course in the neck. No stenosis or oc clusion is seen. No fracture. Minimal retrolisthesis of C3 on C4. Multilevel spinal canal narrowing due to posterior osteophytes and protrusions, most severe at C3-C4, moderate in severity. There is m ultilevel foraminal narrowing due to uncovertebral degenerative changes a nd mild in overall severity facet arthropathy, worst levels are right C3- C4, moderate in severity. Aerodigestive tract is normal. Soft tissues of the neck are normal in appearance including the thyroid gland. There is no significant cervical lymphadenopathy. Seen on axial image 25, there is a 0.7 x 0.4 cm low-attenuation nodule in the right upper lobe. Prominent left prevascular lymph node which measures 1.2 x 1.4 cm on series 5, imag e 8. IMPRESSION: 1. No significant ICA stenosis by NASCE T criteria. 2. Multilevel degenerative changes of t enrique spine detailed above. 3. Indeterminate enlarged 1.2 x 1.4 cm prevascular lymph node. Given indeterminate right upper lobe no dule, pending patient's clinical history, a dedicated contrasted CT of t enrique chest may be helpful for further characterization of the lung pa renchyma and any associated adenopathy. Additionally, if there are outside hospital CTs of the chest, they may be submitted for compar radha purposes. At 936 am, Dr. Patrick Landrum told nurse Darek Kulkarni by phone re: the nodule and recommended CT of the Chest. READING SITE: [facility] ATTESTATION STATEMENT: The staff radiologist has personally re viewed the images and dictated, reviewed, or edited the final report. Signed (Authenticated, Released) Date-T ria: 07/14/2012 1126 [employer]- PATRICK LANDRUM M.D., Staff Radiologist Dictated By- Liborio RUIZ M.D. Staff Physician- PATRICK LANDRUM M.D., Azael issa Radiologist Authenticated By- PATRICK LANDRUM M.D., Staff Radiologist Procedure Note Interface, Rad Conversion - 12/22/2013 12:[address] SWEEPER OPERATOR REPORT Patient: NUNEZMARIO CHAN Aamir Phone #: Geoloqi Rec#: [id number] Sex: M : 1955 Hemant#: [id number] Location: [place] [address] Check-in#: [id number] Procedure Requested: [id number] CT ANGIO NECK Reason For Exam: TIA Exam Ordered: 07/13/20121825 Exam Date/Time: 07/13/20121934 Check-in Date/Time: 07/13/20121826 Attendin HOSPITALIST, PHYSICIAN "" Requestin MARIO ELI Referrin NO, REFERRING Primary Care: [id number] NAE LANDA MD CT ANGIO NECK Jul 13, 2012 07:35:00 PM Indication: TIA Comparison: None. Technique: Multiple axial tomographic images of the head and neck were obtained without contrast. CT angiogram of neck was obtained with bolus injection of 75 cc of Omnipaque 350. The images were sent to workstation and 3D volume rendering was performed. Findings: Mild atheromatous plaque at the origin of the right innominate artery without significant stenosis. The carotid and vertebral origins appear intact. The right vertebral artery is dominant. Both carotid bifurcations are normal. Both carotid and vertebral demonstrate normal course in the neck. No stenosis or occlusion is seen. No fracture. Minimal retrolisthesis of C3 on C4. Multilevel spinal canal narrowing due to posterior osteophytes and protrusions, most severe at C3-C4, moderate in severity. There is multilevel foraminal narrowing due to uncovertebral degenerative changes and mild in overall severity facet arthropathy, worst levels are right C3-C4, moderate in severity. Aerodigestive tract is normal. Soft tissues of the neck are normal in appearance including the thyroid gland. There is no significant cervical lymphadenopathy. Seen on axial image 25, there is a 0.7 x 0.4 cm low-attenuation nodule in the right upper lobe. Prominent left prevascular lymph node which measures 1.2 x 1.4 cm on series 5, image 8. IMPRESSION: 1. No significant ICA stenosis by NASCET criteria. 2. Multilevel degenerative changes of th e spine detailed above. 3. Indeterminate enlarged 1.2 x 1.4 cm p revascular lymph node. Given indeterminate right upper lobe nodule, pending patient's clinical history, a dedicated contrasted CT of the chest may be helpful for further characterization of the lung parenchyma and any associated adenopathy. Additionally, if there are outside hospital CTs of the chest, they may be submitted for comparison purposes. At 936 am, Dr. Patrick Landrum told nurse Estee Kulkarni by phone re: the nodule and recommended CT of the Chest. READING SITE: [facility]. ATTESTATION STATEMENT: The staff radiologist has personally reviewed the images and dictated, reviewed, or edited the final report. Signed (Authenticated, Released) Date-Time: 07/14/2012 1126 [employer]- PATRICK LANDRUM M.D., Staff Radiologist Dictated By- ABDI HARPER M.D., Resident Staff Physician- PATRICK LANDRUM M.D., Staff Radiologist Authenticated By- PATRICK LANDRUM M.D., Staff Radiologist Performing Organization Address City/State/Zipcode Ph one Number [facility] * CT Angio Head and Perfusion P (07/13/2012 7:03 PM CDT) Specimen Narrative Performed At [facility] Patient: MARIO NUNEZ Phone #: Allozyne#: [id number] Sex: M : 1955 Hemant#: [id number] Location: [place] [address] Check-in#: [id number] Procedure Requested: [id number] CT ANGIO HEA D W WO AND PERFUS W P Reason For Exam: RIGHT FACE, ARM, AND LEG PARALYSIS Exam Ordered: 07/13/2012 182 6 Exam Date/Time: 07/13/20121939 Check-in Date/Time: 07/13/20121826 Attendin KAI BECKER "" Requestin MARIO ELI Referrin NO, REFERRING DR Primary Care: [id number] NAE LANDA MD CT Head (without contrast) CT Angiogram and CT Perfusion Head (with contrast) Jul 13, 2012 06:27:00 PM Indication: Stroke symptoms of RIGHT FACE, ARM, AND LEG PARALYSIS Comparison : Head CT from outside [facility] dated July 13, 2012 at 1609 hours Technique: Multiple axial tomographic images of the head were obtained without contrast. CT angiogram of hea d was obtained with bolus injection of 75 cc of Omnipaque 350. The images were sent to workstation and 3D volume rendering was performed. Axial slices for perfusion were selected and CT perfusio n head was performed with bolus injection of 40 cc of Omnipaque 350. The images were sent to workstation and mean transit time (MTT) , cerebral blood flow (CBF), and cerebral blood volume (CBV) were calcul ated. Findings: The CT of the head demonstrates no midl ine shift. No intra or extra-axial mass or hemorrhage is ident ified. The goel-white matter interface is otherwise preserved. The b asilar cisterns are patent. No hydrocephalus is noted. No soft tissue abnormality seen. Orbits are unremarkable. Small air-fluid level in the right maxillary sinus and partial opacification of the anterior e thmoid sinuses. Small polyps are suspected the nasal cavity. There are c avities involving the right maxilla. The mastoid air cells are cl ear. The CTA angiogram demonstrates normal f illing of both distal ICA, anterior and middle cerebral branches. The basilar and posterior cerebral arteries are normal. No markos rial occlusion, significant stenosis, or aneurysm is seen. The CT perfusion shows normal and symme trical mean transit time (MTT), cerebral blood flow (CBF) and cerebral blood volume (CBV). IMPRESSION: 1. No acute intracranial process per nonenhanced CT. 2. No acute stenosis or aneurysm per CT angiogram of the head. 3. No acute intracranial perfusion ab normality. 4. Right maxillary sinus disease. Air-f luid level may represent acute sinusitis. The fact that there are mult iple caries suggest this likely is odontogenic in origin sinus disease. READING SITE: [facility]. ATTESTATION STATEMENT: The staff radiologist has personally re viewed the images and dictated, reviewed, or edited the final report. Signed (Authenticated, Released) Date-T ria: 07/14/2012 1125 [employer]- PATRICK LANDRUM M.D., Staff Radiologist Dictated By- Liborio RUIZ M.D. Staff Physician- Azael REBOLLEDO M.D. Radiologist Authenticated By- PATRICK LANDRUM M.D., Staff Radiologist Procedure Note Interface, Rad Conversion - 12/22/2013 12:[address] SWEEPER OPERATOR REPORT Patient: MARIO NUNEZ Phone #: Geoloqi Rec#: [id number] Sex: M : 1955 [facility]#: [id number] Location: [facility] H638 01 Check-in#: [id number] Procedure Requested: [id number] CT ANGIO HEAD W WO AND PERFUS W P Reason For Exam: RIGHT FACE, ARM, AND LEG PARALYSIS Exam Ordered: 07/13/20121825 Exam Date/Time: 07/13/20121939 Check-in Date/Time: 07/13/20121826 Attendin HOSPITALIST, PHYSICIAN "" Requestin ALCIRAPOONAMMARIO A Referrin NO, REFERRING DR Primary Care: [id number] NAE LANDA MD CT Head (without contrast) CT Angiogram and CT Perfusion Head (with contrast) Jul 13, 2012 06:27:00 PM Indication: Stroke symptoms of RIGHT FACE, ARM, AND LEG PARALYSIS Comparison : Head CT from outside facility dated July 13, 2012 at 1609 hours Technique: Multiple axial tomographic images of the head were obtained without contrast. CT angiogram of head was obtained with bolus injection of 75 cc of Omnipaque 350. The images were sent to workstation and 3D volume rendering was performed. Axial slices for perfusion were selected and CT perfusion head was performed with bolus injection of 40 cc of Omnipaque 350. The images were sent to workstation and mean transit time (MTT), cerebral blood flow (CBF), and cerebral blood volume (CBV) were calculated. Findings: The CT of the head demonstrates no midline shift. No intra or extra-axial mass or hemorrhage is identified. The goel-white matter interface is otherwise preserved. The basilar cisterns are patent. No hydrocephalus is noted. No soft tissue abnormality seen. Orbits are unremarkable. Small air-fluid level in the right maxillary sinus and partial opacification of the anterior ethmoid sinuses. Small polyps are suspected the nasal cavity. There are cavities involving the right maxilla. The mastoid air cells are clear. The CTA angiogram demonstrates normal filling of both distal ICA, anterior and middle cerebral branches. The basilar and posterior cerebral arteries are normal. No arterial occlusion, significant stenosis, or aneurysm is seen. The CT perfusion shows normal and symmetrical mean transit time (MTT), cerebral blood flow (CBF) and cerebral blood volume (CBV). IMPRESSION: 1. No acute intracranial process per no nenhanced CT. 2. No acute stenosis or aneurysm per CT angiogram of the head. 3. No acute intracranial perfusion abno rmality. 4. Right maxillary sinus disease. Air-fl uid level may represent acute sinusitis. The fact that there are multiple caries suggest this likely is odontogenic in origin sinus disease. READING SITE: [facility]. ATTESTATION STATEMENT: The staff radiologist has personally reviewed the images and dictated, reviewed, or edited the final report. Signed (Authenticated, Released) Date-Time: 07/14/2012 1125 [employer]- PATRICK LANDRUM M.D., Staff Radiologist Dictated By- ABDI HARPER M.D., Resident Staff Physician- PATRICK LANDRUM M.D., Staff Radiologist Authenticated By- PATRICK LANDRUM M.D., Staff Radiologist Performing Organization Address City/State/Zipcode Ph one Number [facility] * XR Chest single view frontal (07/13/2012 6:43 PM CDT) Specimen Narrative Performed At [facility] Patient: MARIO NUNEZ Phone #: Geoloqi Rec#: [id number] Sex: M : 1955 Hemant#: [id number] Location: [place] [address] 01 Check-in#: [id number] Procedure Requested: [id number] DX CHEST SIN GLE VIEW Reason For Exam: CHEST PAIN Exam Ordered: 07/13/2012 184 0 Exam Date/Time: 07/13/2012 1855 Check-in Date/Time: 07/13/2012 1840 Attendin HOSPITALISTKAI "" Requestin MARIO ELI Referrin NO, REFERRING Primary Care: [id number] NAE LANDA MD DX CHEST SINGLE VIEW INDICATION: CHEST PAIN. COMPARISON STUDY: None. FINDINGS: Lungs: The lung volume is normal. Left basilar subsegmental atelectasis. No consolidation. Presumed nipple shado w overlying anterior right sixth rib. Normal pulmonary vasculature. Pleura: No pleural effusion or pneumoth orax. Heart and Mediastinum: The cardiomedias tinal silhouette and great vessels are normal. Skeletal Structures and Soft Tissues: T he visualized skeletal structures and soft tissues are within normal limi ts. IMPRESSION: 1. No acute cardiopulmonary process. 2. Left basilar subsegmental atelectasi s. 3. Presumed nipple shadow over the righ t lower lung zone can be confirmed with PA chest radiograph with nipple markers when patient's condition permits. READING SITE: [facility] ATTESTATION STATEMENT: The staff radiologist has personally re viewed the images and dictated, reviewed, or edited the final report. Signed (Authenticated, Released) Date-T ria: 07/14/2012 0556 [employer]- TOMÁS RONQUILLO M.D., Staff Radiologist Dictated By- Liborio RUIZ M.D. Staff Physician- TOMÁS CAMPOS M.D., Staff Radiologist Authenticated By- TOMÁS RONQUILLO M.D., Staff Radiologist Procedure Note Interface, Rad Conversion - 12/22/2013 12:[address] SWEEPER OPERATOR REPORT Patient: MARIO NUNEZ Phone #: Geoloqi Rec#: [id number] Sex: M : 1955 Hemant#: [id number] Location: 6 [facility] 01 Check-in#: [id number] Procedure Requested: [id number] DX CHEST SINGLE VIEW Reason For Exam: CHEST PAIN Exam Ordered: 07/13/2012 184 Exam Date/Time: 07/13/2012 185 Check-in Date/Time: 07/13/2012 184 Attendin HOSPITALIST, PHYSICIAN "" Requestin MARIO ELI Referrin NO, REFERRING DR Primary Care: [id number] NAE LANDA MD DX CHEST SINGLE VIEW INDICATION: CHEST PAIN. COMPARISON STUDY: None. FINDINGS: Lungs: The lung volume is normal. Left basilar subsegmental atelectasis. No consolidation. Presumed nipple shadow overlying anterior right sixth rib. Normal pulmonary vasculature. Pleura: No pleural effusion or pneumothorax. Heart and Mediastinum: The cardiomediastinal silhouette and great vessels are normal. Skeletal Structures and Soft Tissues: The visualized skeletal structures and soft tissues are within normal limits. IMPRESSION: 1. No acute cardiopulmonary process. 2. Left basilar subsegmental atelectasis . 3. Presumed nipple shadow over the right lower lung zone can be confirmed with PA chest radiograph with nipple markers when patient's condition permits. READING SITE: [facility]. ATTESTATION STATEMENT: The staff radiologist has personally reviewed the images and dictated, reviewed, or edited the final report. Signed (Authenticated, Released) Date-Time: 07/14/2012 0556 [employer]- TOMÁS HARDEN M.D., Staff Radiologist Dictated By- ABDI HARPER M.D., Resident Staff Physician- TOMÁS HARDEN M.D., Staff Radiologist Authenticated By- TOMÁS HARDEN M.D., Staff Radiologist Performing Organization Address City/State/[facility] Ph one Number MARCELACHRISTO documented in this encounter Visit Diagnoses Diagnosis Unspecified transient cerebral ischemia documented in this encounter
--- OUTSIDE RECORDS SUMMARY | 2020-05-04 17:37 | XMS REPORT | Encounter Summary ---
Author Author [facility] Organization [facility] Address Unknown Phone Unavailable Care Team Providers Care Contract Administrator Name Role Phone PCP Unavailable Encounter Details Care Team Description Date Type Department [facility] Provider, MD Rosemary 07/14/2012 [facility] C Result Social History Date Tobacco Use Types Packs/Day [...] Procedure Name Priority Date/Time Associated Diag nosis CV MPI PET CT HISTORICAL Routine 07/14/2012 documented in this encounter Results * CV MPI PET CT historical (07/14/2012) Specimen Narrative Performed At Procedure Category: PET-CT NEXTGEN Procedure: Rest/Regadenoson Stress Rb-8 2 PET/CT Procedure Summary: Localized area of mi ld to moderate ischemia in the distribution of the right coronary markos ry.Computer quantitation identifies 6% of the left ventricle as being ischemic.No rmal left ventricular systolic function. Left ventricular ejection fraction at rest is 72%.Test r esults were verbally communicated on date of dictation at approximately 1500 hour s. Procedure Note Interface, Rad Conversion - 05/13/2015 6:51 PM CDT Procedure Category: PET-CT Procedure: Rest/Regadenoson Stress Rb-82 PET/CT Procedure Summary: Localized area of mild to moderate ischemia in the distribution of the right coronary artery.Computer quantitation identifies 6% of the left ventricle as being ischemic.Normal left ventricular systolic function. Left ventricular ejection fraction at rest is 72%.Test results were verbally communicated on date of dictation at approximately 1500 hours. Performing Organization Address City/State/Zipcode Ph one Number NEXTGEN documented in this encounter Visit Diagnoses Not on filedocumented in this encounter
--- OUTSIDE RECORDS SUMMARY | 2020-05-04 17:37 | XMS REPORT | Encounter Summary ---
Author Author [facility] Organization [facility] Address Unknown Phone Unavailable Care Team Providers Care Rigging Worker Name Role Phone PCP Unavailable Encounter Details Care Team Description Date Type Department 10/02/2012 [facility] C [...]
--- OUTSIDE RECORDS SUMMARY | 2020-05-04 17:37 | XMS REPORT ---
Author Author [employer] [facility] [employer] [facility] [place] Address [address] [address] Care Team Providers Care Floorperson Name Role Phone PAWAN MUELLER Unavailable JOSE BOLAND Unavailable JOSE BOLAND Unavailable LAMBERTO BROOKS DO Unavailable Unavailable Unavailable Unavailable Allergies Allergy Reported Allergen(s) Allergy Type Date of Reaction(s) Care Facility Classificati Onset Provider on Aspirin Aspirin Drug Allergy 02-10-2016 RENATA ALFORD Not (16 sources) Available ([id number]) Encounters Encounter Date Encounter Type Encounter Diagnosis Care Provider Facility Start: Emergency department LAMBERTO BROOKS DO [facility] Via [facility] 05-04-2020 patient visit [facility] Start: Admission to same day Pleuritic pain MYA BRAND Via [facility] 06-15-2018 surgery center Work Phone: [facility] ([phone]) End: 06-17-2018 Start: Evaluation and Chest pain MYA BRAND 06-15-2018 management of Work Phone: inpatient End: 06-17-2018 Start: Patient encounter 06-15-2018 procedure End: 06-17-2018 Start: Emergency department 06-15-2018 patient visit Start: Emergency department NA NA Not Avai lable ([id number]) 12-19-2017 patient visit Start: Patient encounter NA NA Not Availab le ([id number]) 12-19-2017 procedure End: 12-19-2017 Start: Patient encounter TE PAYNE MD Not Availa ble ([id number]) 10-06-2017 procedure Start: Patient encounter 01-29-2016 procedure Start: Patient encounter RENATA ALFORD MD Not Availab le ([id number]) 11-25-2015 procedure End: 01-28-2016 Start: Patient encounter RENATA ALFORD MD Not Availab le ([id number]) 10-30-2015 procedure Start: Patient encounter RENATA ALFORD MD Not Availab le ([id number]) 10-15-2015 procedure End: 10-15-2015 Start: Patient encounter RENATA ALFORD MD Not Availab le ([id number]) 12-26-2013 procedure Start: Patient encounter RENATA ALFORD MD Not Availab le ([id number]) 12-25-2013 procedure Start: Patient encounter NA NA Not Availab le ([id number]) 12-25-2013 procedure Start: Patient encounter RENATA ALFORD MD Not Availab le ([id number]) 12-19-2013 procedure End: 12-20-2013 ENCOUNTER FOR OTHER RENATA ALFORD MD Not Available ([phone]) PREPROCEDURAL EXAMIN EXAM PRE-OPERATIVE NA NA Not Available ([phone]) NOS Medical Equipment No Information Goals No Information Immunizations Immunizatio Immunization Notes Care Provider Facility n Date Vaccination ; JOSE BOLAND Via [facility] Translations: Work Phone: [facility] ([phone]) [vaccine] Interventions No Information Medications Medication Drug Dates Sig Sig (Original) Class(es) (Normalized) Acetaminophen Start: (2 sources) 12-19-2017 End: 12-19-2017 aspirin 81 mg delayed Platelet Start: take 1 tablet As pirin (Aspirin Ec) 81 Mg Tablet. 81 release oral tablet Aggregatio 06-17-2018 by mouth once Mg O RAL Daily 30 Tab 06/17/18 (3 sources) n daily Inhibitor, Nonsteroid al Anti-infla mmatory Drug Start: 12-19-2017 End: 12-19-2017 Docusate Start: (1 source) 12-19-2017 End: 12-19-2017 Nitroglycerin End: Nitroglycerin (Nitr ostat) 0.4 Mg Subl, (Nitrostat) 0.4 Mg Subl, 06-16-2018 0.4 Mg Subli ngual As Needed as needed 0.4 Mg Sublingual for Chest Pain Discontinued (2 sources) Clive 3 Polyunsat Fatty Start: take 1 capsule Clive 3 Polyunsat Fatty Acids (Fish Oil Acids (Fish Oil 1,000 Mg 06-17-2018 by mouth twice 1,00 0 Mg Capsule) 1,000 Mg Cap 1,000 Mg Capsule) 1,000 Mg Cap daily at ORAL Twice A D ay With Meals 60 Cap (2 sources) mealtime 06/17/18 Omeprazole 20 Mg End: Omeprazole 20 Mg Ca psule., 20 Mg Oral Capsule., 20 Mg Oral 10-13-2015 Daily Disconti nued (2 sources) Omeprazole Magnesium End: Omeprazole Magne sium (Prilosec Otc) 20 (Prilosec Otc) 20 Mg 06-16-2018 Mg Tablet., 20 Mg Oral Daily as needed Tablet., 20 Mg Oral for Heartburn Discontinued (2 sources) Ondansetron Serotonin- Start: (1 source) 3 Receptor 12-19-2017 Antagonist End: 12-19-2017 Oxycodone Start: Oxycodone Hcl/Aceta minophen (Percocet Hcl/Acetaminophen 12-26-2013 5-325 Mg Tablet) 1 Each Tablet, 1 Each (Percocet 5-325 Mg Oral Every 4HRS for Pain 12/26/13 Tablet) 1 Each Tablet, 1 End: Discontinued Each Oral 10-13-2015 (4 sources) Start: 12-26-2013 Oxycodone End: 12-26-2013 Hcl/Acetaminop hen (Percocet 5-325 Mg Tablet) 1 Each Tablet, 1 Each Oral Every 4HRS for Pain 12/26/13 Discontinued pantoprazole 40 mg oral Proton Start: take 1 tablet Pantoprazole Sodium (Protonix) 40 Mg granules Pump 06-16-2018 by mouth once Granpkt. 4 0 Mg ORAL Daily 30 Tab (2 sources) Inhibitor daily 06/16/18 Phenazopyridine Hcl Start: Phenazopyridine H cl (Pyridium) 200 Mg (Pyridium) 200 Mg 12-20-2013 Tablet, 1 Each Oral Three Times A Day as Tablet, 1 Each Oral needed for Pain 12/20/13 Discontinued (2 sources) End: 10-13-2015 rosuvastatin calcium 5 HMG-CoA Start: take 1 tablet R osuvastatin Calcium (Crestor) 5 Mg mg oral tablet Reductase 06-16-2018 by mouth once Tablet 5 Mg ORAL Daily 30 Tab 06/16/18 (2 sources) Inhibitor daily Sodium Chloride Start: (2 sources) 12-19-2017 End: 12-19-2017 Payers Date Payer Normalized Payer [id number] Plan of Treatment Date Care Activity Detail Author Start: Electrocardiographic Tracing only of Via [facility] 06-17-2018 procedure electrocardiogram [facility] ([phone]) Problems Active Problems Problem Problem Date Last Documented Episodic/Chr Provider Classificati Recorded Date onic on Anxiety Anxiety disorder, unspecified Chronic NA NA disorders (12 sources) Calculus of Urinary calculus, unspecified ; Episodic RENATA PRAHSANTH urinary Translations: [Calculus of kidney] MD tract (12 sources) Cardiac Bradycardia, unspecified Episodic dysrhythmias (11 sources) Complication Postprocedural hematoma of a Episodi c s of circulatory system organ or surgical structure following a cardi ac procedures catheterization or medical care (11 sources) Conditions Dizziness and giddiness Episodic associated with dizziness or vertigo (2 sources) 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 ; Translati ons: other heart [Atherosclerotic heart dise ase of disease lime coronary artery with (15 sources) unstable angina pectoris] Disorders of Hyperlipidemia, unspecified Chronic lipid metabolism (11 sources) Esophageal Gastro-esophageal reflux disease Chronic RENATA PRASHANTH disorders without esophagitis ; Translations: MD (12 sources) [Esophageal reflux] Essential Essential (primary) hypertension ; Chronic RENATA PRASHANTH hypertension Translations: [Unspecified MD (12 sources) essential hypertension] Hyperplasia Hypertrophy (benign) of prostate Chronic RENATA PRASHANTH of prostate without urinary obstruction and MD (1 source) other lower urinary tract s ymptom (LUTS) Immunization Encounter for screening for other Episodic RENATA PRASHANTH s and bacterial diseases MD screening for infectious disease (1 source) Inflammatory Prostatitis, unspecified Episodic MAEVE PRASHANTH conditions MD of male genital organs (1 source) Mood Major depressive disorder, single Ch ronic disorders episode, unspecified (11 sources) Other Encounter for follow-up examination Episodic RENATA PRASHANTH aftercare after completed treatment for MD (1 source) conditions other than malig nant neoplasm Other Blood transfusion, without reported Episodic RENATA PRASHANTH aftercare diagnosis MD (1 source) Other Personal history of transient Episodic RENATA PRASHANTH circulatory ischemic attack (TIA), and cerebral MD disease infarction without residual (1 source) deficits Other Urethral stricture, unspecified Episodic RENATA PRASHANTH diseases of MD bladder and urethra (1 source) Other lower Shortness of breath Episodic respiratory disease (2 sources) Other lower Pleurodynia Episodic JONATHAN ZAPATA respiratory DO disease (1 source) Other Metabolic encephalopathy Chronic NA NA nervous system disorders (1 source) Residual Family history of ischemic heart Epi sodic codes; disease and other diseases of the unclassified circulatory system (11 sources) Screening Personal history of nicotine Episodi c and history dependence of mental health and substance abuse codes (13 sources) Spondylosis; Spondylosis without myelopathy or Chronic NA NA intervertebr radiculopathy, cervical reg ion al disc disorders; other back problems (1 source) Transient Transient cerebral ischemic attack, Chronic cerebral unspecified ischemia (3 sources) Unclassified JOSE (2 sources) BOLAND Work Phone: Past or Other Problems Problem Problem Date Last Documented Episodic/Chr Provider Classificati Recorded Date onic on Allergic Allergy status to penicillin ; Episodic NA NA reactions Translations: [Allergy stat us to (1 source) sulfonamides status] Fluid and Dehydration Episodic NA NA electrolyte disorders (1 source) Nonspecific Chest pain Episodic JOSE chest pain BOLAND (3 sources) Work Phone: Other Other exterminator helper (current) drug Episodic NA NA aftercare therapy (1 source) Other Other symptoms and signs involving Episodic NA NA connective the musculoskeletal system tissue disease (1 source) Residual Procedure and treatment not carried Episodic NA NA codes; out due to patient leaving prior to unclassified being seen by health care p anna (1 source) Procedures Date Procedure Procedure Detail Performing Cl inician Start: Electrocardiograph MYA BRAND 06-17-2018 ic procedure Work Phone: Start: Electrocardiograph MYA De Paz 06-16-2018 ic procedure Work Phone: Start: Electrocardiograph JOSE Mcwilliams GREGG 06-15-2018 ic procedure Work Phone: Start: Plain chest X-ray JOSE Mcwilliams GREGG 06-15-2018 Results Test Name Value Interpreta Reference Facilit Date tion Range y Time wbc auto (bld) [#/vol] on 2018-06-17 WBC (Bld) [#/Vol] 11.3 10*3/uL High 4.3-11.0 Via [facility] ([id number]) urea nitrogen/creatinine [mass ratio] on 2018-06-17 Urea 19 mg/mg Via nitrogen/Creatinine [facility] [Mass ratio] [facility] ([id number]) urea nitrogen [mass/vol] on 2018-06-17 Urea nitrogen 17 mg/dL 7-18 Via [Mass/Vol] [facility] ([id number]) sodium [moles/vol] on 2018-06-17 Sodium [Moles/Vol] 138 mmol/L 135-145 Via [facility] ([id number]) rbc auto (bld) [#/vol] on 2018-06-17 RBC (Bld) [#/Vol] 5.20 10*6/uL 4.35-5.85 Via [facility] ([id number]) potassium [moles/vol] on 2018-06-17 Potassium 3.9 mmol/L 3.6-5.0 Via [Moles/Vol] [facility] ([id number]) platelets auto (bld) [#/vol] on 2018-06-17 Platelets (Bld) 248 10*3/uL 130-400 Via [#/Vol] [facility] ([id number]) platelet mean volume auto (bld) [entitic vol] on 2018-06-17 Platelet mean volume 9.9 fL 7.4-10.4 Via (Bld) [Entitic vol] [facility] ([id number]) mcv auto (rbc) [entitic vol] on 2018-06-17 MCV (RBC) [Entitic 89 fL 80-99 Via vol] [facility] ([id number]) mchc auto (rbc) [mass/vol] on 2018-06-17 MCHC (RBC) 35 g/dL 32-36 Via [Mass/Vol] [facility] ([id number]) mch auto (rbc) [entitic mass] on 2018-06-17 MCH (RBC) [Entitic 31 pg 25-34 Via mass] [facility] ([id number]) hemoglobin (bldv) [mass/vol] on 2018-06-17 Hemoglobin (Bld) 16.0 g/dL 13.3-17.7 Via [Mass/Vol] [facility] l [facility] rg ([id number]) hematocrit (bld) [volume fraction] on 2018-06-17 Hematocrit (Bld) 46 % 40-54 Via [Volume fraction] [facility] l [facility] rg ([id number]) glucose [mass/vol] on 2018-06-17 Glucose [Mass/Vol] 98 mg/dL 70-105 Via Merlene [facility] l [facility] rg ([id number]) erythrocyte distribution width auto (rbc) [ratio] on 2018-06-17 Erythrocyte 13.2 % 10.0-14.5 Via distribution width Merlene (RBC) [Ratio] Hospita l [facility] rg ([id number]) creatinine and glomerular filtration rate.predicted panel (s/p/bld) on 2018-06-17 GFR/1.73 sq Via M.predicted among [facility] non-blacks MDRD Hospita (S/P/Bld) [Vol l rate/Area] [facility] ([id number]) creatinine [mass/vol] on 2018-06-17 Creatinine 0.90 mg/dL 0.60-1.30 Via [Mass/Vol] [facility] l [facility] rg ([id number]) chloride [moles/vol] on 2018-06-17 Chloride [Moles/Vol] 107 mmol/L 98-[address] [facility] rg ([id number]) carbon dioxide on 2018-06-17 CO2 [Moles/Vol] 21 mmol/L 21-[address] [facility] rg ([id number]) calcium [mass/vol] on 2018-06-17 Calcium [Mass/Vol] 9.5 mg/dL 8.5-10.[address] [facility] rg (80905) anion gap [moles/vol] on 2018-06-17 Anion gap 10 mmol/L 5-14 Via [Moles/Vol] [facility] rg ([id number]) troponin i.cardiac [mass/vol] on 2018-06-16 Troponin I.cardiac <0.30 Via [Mass/Vol] [facility] l [facility] rg ([id number]) triglyceride [mass/vol] on 2018-06-16 Triglyceride 115 mg/dL <150 Via [Mass/Vol] [facility] l [facility] rg (35354) protein [mass/vol] on 2018-06-16 Protein [Mass/Vol] 6.8 g/dL 6.4-8.2 Via [facility] ([id number]) neutrophils/100 wbc auto (bld) on 2018-06-16 Neutrophils/100 WBC 51 % 42-75 Via (Bld) [facility] ([id number]) neutrophils auto (bld) [#/vol] on 2018-06-16 Neutrophils (Bld) 4.6 10*3/uL 1.8-7.8 Via [#/Vol] [facility] juan jose [facility] ([id number]) myoglobin [mass/vol] on 2018-06-16 Myoglobin [Mass/Vol] 37.9 ng/mL 10.0-92.0 Via [facility] ([id number]) mrsa isol org specific cx ql (unsp spec) on 2018-06-16 MRSA isol Org MRSA not isolated Via specific cx Ql (Unsp Merlene spec) [facility] ([id number]) monocytes/100 wbc (bld) on 2018-06-16 Monocytes/100 WBC 12 % 0-12 Via (Bld) [facility] ([id number]) monocytes auto (bld) [#/vol] on 2018-06-16 Monocytes (Bld) 1.1 10*3/uL High 0.0-1.0 Via [#/Vol] [facility] ([id number]) lymphocytes/100 wbc auto (bld) on 2018-06-16 Lymphocytes/100 WBC 32 % 12-44 Via (Bld) [facility] ([id number]) lymphocytes auto (bld) [#/vol] on 2018-06-16 Lymphocytes (Bld) 2.9 10*3/uL 1.0-4.0 Via [#/Vol] [facility] ([id number]) eosinophils/100 wbc auto (bld) on 2018-06-16 Eosinophils/100 WBC 4 % 0-10 Via (Bld) [facility] ([id number]) eosinophils auto (bld) [#/vol] on 2018-06-16 Eosinophils (Bld) 0.3 10*3/uL 0.0-0.3 Via [#/Vol] [facility] ([id number]) ck [catalytic activity/vol] on 2018-06-16 CK [Catalytic 64 U/L 30-200 Via activity/Vol] [facility] juan jose [facility] ([id number]) cholesterol in vldl [mass/vol] on 2018-06-16 Cholesterol in VLDL 23 mg/dL 5-40 Via [Mass/Vol] [facility] ([id number]) cholesterol in ldl direct assay [mass/vol] on 2018-06-16 Cholesterol in LDL 223 mg/dL High 1-129 Via [Mass/Vol] [facility] ([id number]) cholesterol in hdl [mass/vol] on 2018-06-16 Cholesterol in HDL 47 mg/dL 40-60 Via [Mass/Vol] [facility] (07095) cholesterol [mass/vol] on 2018-06-16 Cholesterol 279 mg/dL High < 200 Via [Mass/Vol] [facility] ([id number]) calcium measurement corrected for albumin on 2018-06-16 Albumin [Mass/Vol] 9.7 g/dL 8.5-10.1 Via [facility] ([id number]) bilirubin [mass/vol] on 2018-06-16 Bilirubin [Mass/Vol] 1.0 mg/dL 0.1-1.0 Via [facility] ([id number]) basophils/100 wbc auto (bld) on 2018-06-16 Basophils/100 WBC 1 % 0-10 Via (Bld) [facility] ([id number]) basophils auto (bld) [#/vol] on 2018-06-16 Basophils (Bld) 0.1 10*3/uL 0.0-0.1 Via [#/Vol] [facility] ([id number]) ast [catalytic activity/vol] on 2018-06-16 AST [Catalytic 21 U/L 5-34 Via activity/Vol] [facility] (05353) alt [catalytic activity/vol] on 2018-06-16 ALT [Catalytic 19 U/L 0-55 Via activity/Vol] [facility] ([id number]) alp [catalytic activity/vol] on 2018-06-16 ALP [Catalytic 50 U/L 40-136 Via activity/Vol] [facility] ([id number]) albumin [mass/vol] on 2018-06-16 Albumin [Mass/Vol] 4.1 g/dL 3.2-4.5 Via [facility] ([id number]) troponin i.cardiac [mass/vol] on 2018-06-15 Troponin I.cardiac <0.30 Via [Mass/Vol] [facility] (94886) pt coag (ppp) [time] on 2018-06-15 PT Coag (PPP) [Time] 13.7 s 12.2-14.7 Via [facility] ([id number]) magnesium on 2018-06-15 Magnesium [Mass/Vol] 2.3 mg/dL 1.8-2.4 Via [facility] (81039) inr coag (platelet poor plasma or blood) [relative time] on 2018-06-15 INR Coag (Platelet 1.1 0.8-1.4 Via poor plasma or [facility] blood) [Relative Hospita time] [facility] ([id number]) fibrin d-dimer feu (ppp) [mass/vol] on 2018-06-15 Fibrin D-dimer FEU 0.32 0.00-0.49 Via (PPP) [Mass/Vol] [facility] (02284) aptt coag (ppp) [time] on 2018-06-15 aPTT Coag (PPP) 32 s 24-35 Via [Time] [facility] ([id number]) Social History No Information Vital Signs The data below is from unstructured sources Vital Response Date/Time Temperature (Fahrenheit) 96.4 degree s F (97.6 - 99.5) 10/15/2015 5:04pm Temperature (Calculated Celsius) 35. 55557 degrees C (36.4 - 37.5) 10/15/2015 11:55am Temperature Source Temporal 10/15/2015 5:04pm Pulse Rate (adult) 58 bpm (60 - 90) 10/15/2015 5:04pm Respiratory Rate 16 bpm (12 - 24) 10/15/2015 5:04pm O2 Sat by Pulse Oximetry 98 % (88 - 100) 10/15/2015 5:04pm Blood Pressure 130/74 mm Hg 10/15/2015 5:04pm Pain Pain Intensity 2 2014 11:55am Height (Feet) 5 feet 7:00am Height (Inches) 10.00 inches 10/15/2015 7:00am Height (Calculated Centimeters) 177. 603517 cm 10/15/2015 7:00am Weight (Pounds) 175 pounds 10/15/2015 7:00am Weight (Calculated Grams) 65313.666 gm 10/15/2015 7:00am Weight (Calculated Kilograms) 79.378 666 kilograms 10/15/2015 7:00am Calculated BMI 29.12 7:00am Vital Response Date/Time Temperature (Fahrenheit) 97.5 degree s F (97.6 - 99.5) 02/10/2016 1:38pm Temperature (Calculated Celsius) 36. 64713 degrees C (36.4 - 37.5) 02/10/2016 1:38pm Pulse Rate (adult) 65 bpm (60 - 90) 02/10/2016 1:38pm Respiratory Rate 18 bpm (12 - 24) 02/10/2016 1:38pm O2 Sat by Pulse Oximetry 98 % (88 - 100) 02/10/2016 1:38pm Blood Pressure 122/95 mm Hg 02/10/2016 1:38pm Blood Pressure Mean 104 mm Hg 02/10/2016 1:38pm Pain Pain Intensity 0 2015 1:38pm Height (Feet) 5 feet 1:38pm Height (Inches) 10 inches 02/10/2016 1:38pm Height (Calculated Centimeters) 177. 637498 cm 02/10/2016 1:38pm Weight (Pounds) 180 pounds 02/10/2016 1:38pm Weight (Calculated Kilograms) 81.646 627 kilograms 02/10/2016 1:38pm Height 5 ft 10 in Weight 180 lb Body Mass Index 25.8 kg/m^2 Vital Response Date/Time Temperature (Fahrenheit) 98.2 degree s F (97.6 - 99.5) 06/17/2018 8:00am Temperature (Calculated Celsius) 36. 22582 degrees C (36.4 - 37.5) 06/17/2018 8:00am Temperature Source Temporal 06/17/2018 8:00am Pulse Rate (adult) 71 bpm (60 - 90) 06/17/2018 1:00pm Respiratory Rate 10 bpm (12 - 24) 06/17/2018 12:00pm O2 Sat by Pulse Oximetry 98 % (88 - 100) 06/17/2018 8:00am Blood Pressure 115/85 mm Hg 06/17/2018 12:00pm Blood Pressure Mean 95 mm Hg (65 - 110) 06/17/2018 12:00pm Pain Numeric Pain Scale 0-No Pain 06/16/2018 7:00pm Height (Feet) 5 feet 6:53pm Height (Inches) 10.00 inches 06/15/2018 6:53pm Height (Calculated Centimeters) 177. 577207 cm 06/15/2018 6:53pm Height Method Stated 4:20pm Weight (Pounds) 168 pounds 06/15/2018 6:53pm Weight (Ounces) 8.0 oz 0 06/15/2018 6:53pm Weight (Calculated Grams) 51050.32 gm 06/15/2018 6:53pm Weight (Calculated Kilograms) 76.430 315 kilograms 06/15/2018 6:53pm Calculated BMI 24.2 05/25 6:53pm Weight Method Stated 4:20pm Weight Measurement Method Built in [facility] e 06/15/2018 6:53pm Capillary Refill Capillary Refill Less Than 3 Seconds 06/16/2018 7:00pm Vital Response Date/Time Temperature (Fahrenheit) 98.2 degree s F (97.6 - 99.5) 06/17/2018 8:00am Temperature (Calculated Celsius) 36. 75565 degrees C (36.4 - 37.5) 06/17/2018 8:00am Temperature Source Temporal 06/17/2018 8:00am Pulse Rate (adult) 71 bpm (60 - 90) 06/17/2018 1:00pm Respiratory Rate 10 bpm (12 - 24) 06/17/2018 12:00pm O2 Sat by Pulse Oximetry 98 % (88 - 100) 06/17/2018 8:00am Blood Pressure 115/85 mm Hg 06/17/2018 12:00pm Blood Pressure Mean 95 mm Hg (65 - 110) 06/17/2018 12:00pm Pain Numeric Pain Scale 0-No Pain 06/16/2018 7:00pm Height (Feet) 5 feet 6:53pm Height (Inches) 10.00 inches 06/15/2018 6:53pm Height (Calculated Centimeters) 177. 702671 cm 06/15/2018 6:53pm Height Method Stated 4:20pm Weight (Pounds) 168 pounds 06/15/2018 6:53pm Weight (Ounces) 8.0 oz 0 06/15/2018 6:53pm Weight (Calculated Grams) 52419.32 gm 06/15/2018 6:53pm Weight (Calculated Kilograms) 76.430 315 kilograms 06/15/2018 6:53pm Calculated BMI 24.2 05/25 6:53pm Weight Method Stated 4:20pm Weight Measurement Method [facility] 06/15/2018 6:53pm Capillary Refill Capillary Refill Less Than 3 Seconds 06/16/2018 7:00pm Functional Status The data below is from unstructured sources Query Response Date Donavan rded Comprehension Ability Understands Co ncepts June 15, 2018 6:56pm Mental Status No Information Advance Directives Directive Response Recor ded Date/Time Advance Directives No 7:00am Organ Donor No 10/15/15 7:00am Resuscitation Status Full Code 10/15/15 7:00am Directive Response Recor ded Date/Time Advance Directives No 7:00am Organ Donor No 10/15/15 7:00am Directive Response Recor ded Date/Time Advance Directives No 2:56pm Organ Donor No 02/10/16 2:56pm Resuscitation Status Full Code 02/10/16 2:56pm Directive Response Recor ded Date/Time Advance Directives No 6:41pm Organ Donor No 06/15/18 6:41pm Resuscitation Status Full Code 06/15/18 6:41pm Discharge Instructions Patient Instructions Physician Instructions New, Converted, or Re-newed RX: RX on Chart Plan Please make appointment to been seen in office in 2 weeks, KUB prior to it and bring to it KUB on way home Post ESWL instructions On Tuesday, if no bleeding, may resume Plavix Increase oral fluids for 48 hours and then as needed. Diet and Activity as tolerated. If questions or concerns contact your physician Or seek help at emergency department. No hospital discharge instructions.No hospital discharge instructions.No hospital discharge instruction information available.No hospital discharge instruction information available. Additional Source Comments This clinical document has been generated using [employer] software that has been certified by the Office of the National Coordinator for Health Information Technology (ONC 15.99.04.3023.Diam.31.00.0.349701) and the National Committee for Bulk [employer] Specialist (NCQA, as an eMeasure certified technology). FOR RECORDS PERTAINING TO PATIENTS WHO ARE OR HAVE BEEN ENROLLED IN A CHEMICAL D EPENDENCY/SUBSTANCE ABUSE PROGRAM, SOME INFORMATION MAY BE OMITTED. This clinica l summary was aggregated from multiple sources. Caution should be exercised in using it in the provision of clinical care. This summary normalizes information from multiple sources, and as a consequence, information in this document may ma terially change the coding, format and clinical context of patient data. In [place]ville tion, data may be omitted in some cases. CLINICAL DECISIONS SHOULD BE BASED ON T HE PRIMARY CLINICAL RECORDS. [email or web address] provides no warranty or guara ntee of the accuracy or completeness of information in this document.The followi ng information is based on time limited clinical information
--- OUTSIDE RECORDS SUMMARY | 2020-05-04 17:37 | XMS REPORT | Encounter Summary ---
Author Author [facility] Organization [facility] Address Unknown Phone Unavailable Care Team Providers Care Operations Supervisor Name Role Phone PCP Unavailable Encounter Details Care Team Description Date Type Department [facility] Provider, MD Rosemary 07/17/2012 [facility] Result Social History [...] Procedure Name Priority Date/Time Associated Diag nosis ECHO TRANSESOPHAGEAL Routine 07/17/2012 HISTORICAL documented in this encounter Results * Echo Transesophageal historical (07/17/2012) Specimen Narrative Performed At Procedure Category: ECHO NEXTGEN Procedure: Transesophageal Echocardiogr am Procedure Summary: 1. Normal left ventr icular systolic function, with an estimated ejection fraction of 60%. 2. Normal valves. 3. Atrial septal aneurysm with a patent foramen ovale. 4. Complex atherosclerotic plaque on th e lesser curvature of the aortic arch. Procedure Note Interface, Rad Conversion - 05/13/2015 6:49 PM CDT Procedure Category: ECHO Procedure: Transesophageal Echocardiogram Procedure Summary: 1. Normal left ventricular systolic function, with an estimated ejection fraction of 60%. 2. Normal valves. 3. Atrial septal aneurysm with a patent foramen ovale. 4. Complex atherosclerotic plaque on the lesser curvature of the aortic arch. Performing Organization Address City/State/Zipcode Ph one Number NEXTGEN documented in this encounter Visit Diagnoses Not on filedocumented in this encounter
--- OUTSIDE RECORDS SUMMARY | 2020-05-04 17:37 | XMS REPORT | Encounter Summary ---
Author Author [facility] Address Unknown Phone Unavailable Care Team Providers Care Regional Airline Pilot Name Role Phone PCP Unavailable Encounter Details Care Team Description Date Type Department Cody Espitia MD [address] [facility] [address] [place] [address] [phone] 07/14/2012 [facility] [...]
--- OUTSIDE RECORDS SUMMARY | 2020-05-04 17:37 | XMS REPORT | Encounter Summary ---
Author Author [facility] Organization [facility] Address Unknown Phone Unavailable Care Team Providers Care Canned Food Reconditioning Inspector Name Role Phone PCP Unavailable Encounter Details Care Team Description Date Type Department [facility] Provider, MD Rosemary 07/14/2012 [facility] Social History Date Tobacco Use Types Packs/Day [...] Procedure Name Priority Date/Time Associated Diag nosis NUC EJECTION FRACTION Routine 07/14/2012 HISTORICAL 12:00 AM CDT documented in this encounter Results * Nuc Ejection Fraction historical (07/14/2012 12:00 AM CDT) Ejection 72Comment: PET/CT (Sestamibi [facility] Fraction Dobutamine s/r) Specimen Performing Organization Address City/State/Zipcode Ph one Number [email or web address] documented in this encounter Visit Diagnoses Not on filedocumented in this encounter
--- OUTSIDE RECORDS SUMMARY | 2020-05-04 17:37 | XMS REPORT | Encounter Summary ---
Author Author [facility] Organization [facility] Address Unknown Phone Unavailable Care Team Providers Care Title Examiner Name Role Phone PCP Unavailable Encounter Details Care Team Description Date Type Department [facility] Provider, MD Rosemary 07/14/2012 [facility] Social History Date Tobacco [...] Name Priority Date/Time Associated Diag nosis ECHO EJECTION FRACTION Routine 07/14/2012 HISTORICAL 3:35 PM CDT documented in this encounter Results * Echo Ejection Fraction historical (07/14/2012 3:35 PM CDT) Ejection 65Comment: Echo PROSOLV Fraction Specimen Performing Organization Address City/State/Zipcoks Ph one Number PROSOLV documented in this encounter Visit Diagnoses Not on filedocumented in this encounter
--- OUTSIDE RECORDS SUMMARY | 2020-05-04 17:37 | XMS REPORT | Encounter Summary ---
Author Author [facility] Organization [facility] Address Unknown Phone Unavailable Care Team Providers Care Dot Compliance Coordinator Name Role Phone PCP Unavailable Encounter Details Care Team Description Date Type Department [facility] Provider, MD Rosemary 07/14/2012 [facility] Result Social History Date [...] Name Priority Date/Time Associated Diag nosis ECHO HISTORICAL Routine 07/14/2012 documented in this encounter Results * Echo historical (07/14/2012) Specimen Narrative Performed At Procedure Category: ECHO NEXTGEN Procedure: Echocardiogram Procedure Summary: 1. Normal left bruce tricular systolic function, with an estimated ejection fraction of 65%. 2. No significant valvular abnormalit ies. 3. Patent foramen ovale, with evidenc e of right to left shunt following a bolus of agitated saline. Procedure Note Interface, Rad Conversion - 05/13/2015 6:50 PM CDT Procedure Category: ECHO Procedure: Echocardiogram Procedure Summary: 1. Normal left ventricular systolic function, with an estimated ejection fraction of 65%. 2. No significant valvular abnormalitie s. 3. Patent foramen ovale, with evidence of right to left shunt following a bolus of agitated saline. Performing Organization Address City/State/Zipcode Ph one Number NEXTGEN documented in this encounter Visit Diagnoses Not on filedocumented in this encounter
--- OUTSIDE RECORDS SUMMARY | 2020-05-04 17:37 | XMS REPORT | Encounter Summary ---
Author Author [facility] Address Unknown Phone Unavailable Care Team Providers Care Rf Test Technician Name Role Phone PCP Unavailable Encounter Details Care Team Description Date [place] [address] [facility] [address] [place] [address] [phone] 07/15/2012 [facility] [...]
--- OUTSIDE RECORDS SUMMARY | 2020-05-04 17:37 | XMS REPORT | Clinical Summary ---
Author Author [facility] Organization [facility] Address Unknown Phone Unavailable Care Team Providers Care Cheese Cooker Name Role Phone PCP Unavailable Allergies Not on File Medications Not on file Active Problems Not on file Social History Date Tobacco Use Types Packs/Day Years Used Never Assessed Sex Assigned at Date Recorded Not on file Industry Job Start Date Occupation Not on file Not on file Not on file Travel End Travel History Travel Start No recent travel history available. Last Filed Vital Signs Not on file Plan of Treatment Not on file Results Not on filefrom Last 3 Months
--- OUTSIDE RECORDS SUMMARY | 2020-05-04 17:37 | XMS REPORT | Encounter Summary ---
Author Author [facility] Organization [facility] Address Unknown Phone Unavailable Care Team Providers Care Grades 9 12 Tutor Name Role Phone PCP Unavailable Encounter Details Care Team Description Date Type Department 07/17/2012 [facility] [...]
--- OUTSIDE RECORDS SUMMARY | 2020-05-04 17:38 | XMS REPORT | Continuity of Care Document ---
Author Organization Unknown Address Unknown Phone Unavailable Allergies Active Description Code Type Severity Reaction Onset Reported/Identified Relationship to Patient Clinical Status Yes ciprofloxacin [id number] Dax g Allergy Mild RASH 12/26/2013 Yes aspirin [id number] Drug Allergy Unknown N/A 02/10/2016 Yes ketorolac [id number] Drug Allergy Unknown N/A 02/10/2016 Yes naproxen [id number] Drug Allergy Unknown N/A 02/10/2016 Yes Penicillins [id number] Drug Aller gy Unknown N/A 02/10/2016 Yes Sulfa (Sulfonamide Antibiotics) [id number] Drug Allergy Unknown N/A 016 Yes penicillin NKMA N/A N/A 12/19/2017 Yes sulfa drugs NKMA N/A N/A 12/19/2017 Medications Medication Packaging Start Date St op Date Route Dosage Sig clopidogrel(Plavix) 12/19/2017 Oral 75 mg 75 m g, Oral, Daily, 0 Refill(s) Sodium Chloride 0.9%(Sodium Chloride 0.9% 1,000 mL) 1,000 mL 12/19/2017 12/19/2017 IV 75 mL/hr, IV docusate(Colace) 1 caps 12/19/2017 12/19/2017 Oral 100 mg 100 mg = 1 caps, Oral, BID ondansetron(Zofran) 2 mL 12/19/2017 12/19/2017 IV Push 4 mg 4 mg = 2 mL, IV Push, q6hr, PRN: Nausea Sodium Chloride 0.9%(Sodium Chloride 0.9% 1,000 mL) 1,000 mL 12/19/2017 12/19/2017 IV 75 mL/hr, IV acetaminophen(acetaminophen) 2 tabs 12/19/2017 12/19/2017 Oral 650 mg 650 mg = 2 tabs, Oral, q4hr, PRN: Pain ALPRAZolam(Xanax) 12/19/2017 Oral 0.5 mg 0.5 mg, Oral, Bedtime (once a day), 0 Refill(s) traMADol(traMADol) 12/19/2017 Oral 50 mg 50 m g, Oral, q4hr, PRN: as needed for pain, 0 Refill(s) aspirin(aspirin) 4 tabs 12/19/2017 12/19/2017 Oral 324 mg 324 mg = 4 tabs, Oral, Once Problems Date Dx Coded Attending Type Code Diagnosis Diagnosed By 12/20/2013 RENATA ALFORD MD Ot 401.9 HYPERTENSION NOS 12/20/2013 RENATA ALFORD MD Ot 414.0 1 CORONARY ATHEROSCLEROSIS OF [place] CORON 12/20/2013 RENATA ALFORD MD Ot 530.8 1 ESOPHAGEAL REFLUX 12/20/2013 RENATA ALFORD MD Ot 592.0 CALCULUS OF KIDNEY 12/20/2013 RENATA ALFORD MD Ot 592.1 CALCULUS OF URETER 12/20/2013 RENATA ALFORD MD Ot 598.9 URETHRAL STRICTURE NOS 12/20/2013 RENATA ALFORD MD Ot 600.0 0 HYPERTROPHY (BENIGN) OF PROSTATE W/O URI 12/20/2013 RENATA ALFORD MD Ot 601.9 PROSTATITIS NOS 12/20/2013 RENATA ALFORD MD Ot V12.5 4 PERSONAL HX OF TIA, CEREBRAL INFARCTION 12/20/2013 RENATA ALFORD MD, Ot V58.2 BLOOD TRANSFUSION, NO DX 09/09/2015 RENATA ALFORD MD Ot 592.0 09/09/2015 RENATA ALFORD MD Ot 592.1 09/09/2015 RENATA ALFORD MD, Ot V72.8 4 09/09/2015 RENATA ALFORD MD Ot 592.0 09/09/2015 RENATA ALFORD MD Ot 592.1 10/15/2015 RENATA ALFORD MD, Ot N20.0 CALCULUS OF KIDNEY 10/15/2015 RENATA ALFORD MD, Ot Z11.2 ENCOUNTER FOR SCREENING FOR OTHER BACTER 10/20/2015 RENATA ALFORD MD Ot N20.0 10/20/2015 RENATA ALFORD MD, Ot Z01.8 18 10/28/2015 PRASHANTH MD, RENATA A Ot N20.0 10/28/2015 PRASHANTH DIAZ, RENATA A Ot N20.0 11/03/2015 PRASHANTH DIAZ, RENATA A Ot N20.9 11/04/2015 PRASHANTH DIAZ, RENATA A Ot N20.9 11/12/2015 PRASHANTH DIAZ, RENATA A Ot N20.1 11/12/2015 PRASHANTH DIAZ, RENATA A Ot Z09 12/01/2015 PRASHANTH DIAZ, RENATA A Ot 592.0 12/01/2015 PRASHANTH DIAZ, RENATA A Ot 592.1 12/01/2015 PRASHANTH DIAZ, RENATA A Ot V72.8 4 12/01/2015 PRASHANTH DIAZ, RENATA A Ot 592.0 12/01/2015 PRASHANTH DIAZ, RENATA A Ot 592.1 12/01/2015 PRASHANTH DIAZ, RENATA A Ot N20.0 12/01/2015 PRASHANTH DIAZ, RENATA A Ot N20.0 12/01/2015 PRASHANTH DIAZ, RENATA A Ot N20.0 12/01/2015 PRASHANTH DIAZ, RENATA A Ot Z01.8 18 12/01/2015 PRASHANTH DIAZ, RENATA A Ot N20.1 12/01/2015 PRASHANTH DIAZ, RENATA A Ot Z09 12/01/2015 PRASHANTH DIAZ, RENATA A Ot N20.9 12/10/2015 PRASHANTH DIAZ, RENATA A Ot N20.1 12/10/2015 PRASHANTH DIAZ, RENATA A Ot Z09 01/28/2016 PRASHANTH DIAZ, RENATA A Ot N20.9 URINARY CALCULUS, UNSPECIFIED 01/29/2016 PRASHANTH DIAZ, RENATA A Ot N20.9 02/10/2016 ZAPATA DO, JONATHAN L Ot R07.8 1 PLEURODYNIA 02/10/2016 PRASHANTH DIAZ, RENATA A Ot N20.9 URINARY CALCULUS, UNSPECIFIED 02/11/2016 ZAPATA DO, JONATHAN L Ot R07.8 1 PLEURODYNIA 10/20/2017 KERRY DIAZ, TE Bailey Ot G45. 9 TRANSIENT CEREBRAL ISCHEMIC ATTACK, UNSP 10/20/2017 KERRY DIAZ, TE Bailey Ot I25. 10 ATHSCL HEART DISEASE OF [place] CORONARY 10/20/2017 KERRY DIAZ, TE Bailey Ot R06. 02 SHORTNESS OF BREATH 10/20/2017 KERRY DIAZ, TE Bailey Ot R42 DIZZINESS AND GIDDINESS 10/20/2017 KERRY DIAZ, TE Bailey Ot Z87.891 PERSONAL HISTORY OF NICOTINE DEPENDENCE 12/19/2017 Magan Peraza Admitting G45.9 12/21/2017 Magan Peraza Final E86.0 Dehydration 12/21/2017 Magan Peraza Final F41.9 Anxiety disorder, unspecified 12/21/2017 Magan Peraza Reason G45.9 Transient cerebral ischemic attack, unspecified 12/21/2017 Magan Peraza Final G93.41 Metabolic encephalopathy 12/21/2017 Magan Peraza Final I25.10 Atherosclerotic heart disease of [place] coronary artery without angina pect 12/21/2017 Magan Peraza Final M47.812 Spondylosis without myelopathy or radiculopathy, cervi gabino region 12/21/2017 Magan Peraza Final R29.898 Other symptoms and signs involving the musculoskeletal system 12/21/2017 Magan Peraza Final Z53.21 Procedure and treatment not carried out due to patient leaving prior to emily 12/21/2017 Magan Peraza Final Z79.899 Other fdc (current) drug therapy 12/21/2017 Magan Peraza Final Z88.0 Allergy status to penicillin 12/21/2017 Magan Peraza Final Z88.2 Allergy status to sulfonamides status 12/23/2017 RENATA ALFORD MD Ot 592.0 CALCULUS OF KIDNEY 12/23/2017 RENATA ALFORD MD Ot 592.1 CALCULUS OF URETER 12/23/2017 RENATA ALFORD MD Ot V72.8 4 EXAM PRE-OPERATIVE NOS 12/23/2017 RENATA ALFORD MD Ot 592.0 CALCULUS OF KIDNEY 12/23/2017 RENATA ALFORD MD Ot 592.1 CALCULUS OF URETER 12/23/2017 RENATA ALFORD MD Ot N20.0 CALCULUS OF KIDNEY 12/23/2017 PRASHANTH DIAZ, RENATA Hollis Ot N20.0 CALCULUS OF KIDNEY 12/23/2017 PRASHANTH DIAZ, RENATA Hollis Ot N20.0 CALCULUS OF KIDNEY 12/23/2017 PRASHANTH DIAZ, RENATA Hollis Ot Z01.8 18 ENCOUNTER FOR OTHER PREPROCEDURAL EXAMIN 12/23/2017 RENATA ALFORD MD, Ot N20.1 CALCULUS OF URETER 12/23/2017 PRASHANTH DIAZ, RENATA Hollis Ot Z09 ENCNTR FOR F/U EXAM AFT TRTMT FOR COND O 12/23/2017 RENATA ALFORD MD, Ot N20.9 URINARY CALCULUS, UNSPECIFIED 12/23/2017 TE PAYNE MD Ot G45. 9 TRANSIENT CEREBRAL ISCHEMIC ATTACK, UNSP 12/23/2017 TE PAYNE MD Ot I25. 10 ATHSCL HEART DISEASE OF [place] CORONARY 12/23/2017 TE PAYNE MD Ot R06. 02 SHORTNESS OF BREATH 12/23/2017 TE PAYNE MD Ot R42 DIZZINESS AND GIDDINESS 12/23/2017 TE PAYNE MD Ot Z87.891 PERSONAL HISTORY OF NICOTINE DEPENDENCE 06/15/2018 PRASHANTH DIAZ, RENATA Hollis Ot N20.9 URINARY CALCULUS, UNSPECIFIED 06/17/2018 MYA BRAND MD Ot E78. 5 HYPERLIPIDEMIA, UNSPECIFIED 06/17/2018 MYA BRAND MD, Ot F32. 9 MAJOR DEPRESSIVE DISORDER, SINGLE EPISOD 06/17/2018 MYA BRAND MD, Ot F41. 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 9 GASTRO-ESOPHAGEAL REFLUX DISEASE WITHOUT 06/17/2018 MYA BRAND MD Ot R00. 1 BRADYCARDIA, UNSPECIFIED 06/17/2018 MYA BRAND MD, Ot Z82. 49 FAMILY HX OF ISCHEM HEART DIS AND OTH DI 06/17/2018 MYA BRAND MD Ot Z87.891 PERSONAL HISTORY OF NICOTINE DEPENDENCE 06/17/2018 MYA BRAND MD Ot Z95. 5 PRESENCE OF CORONARY ANGIOPLASTY IMPLANT 06/23/2018 MYA BRAND MD Ot E78. 5 HYPERLIPIDEMIA, UNSPECIFIED 06/23/2018 MYA BRAND MD Ot F32. 9 MAJOR DEPRESSIVE DISORDER, SINGLE EPISOD 06/23/2018 MYA BRAND MD Ot F41. 9 ANXIETY DISORDER, UNSPECIFIED 06/23/2018 MYA BRAND MD Ot I10 ESSENTIAL (PRIMARY) HYPERTENSION 06/23/2018 MYA BRAND MD Ot I25.110 ATHSCL HEART DISEASE OF [place] COR ART W 06/23/2018 MYA BRAND MD Ot I97.630 POSTPROC HEMATOMA OF A CIRC SYS ORG FOLL 06/23/2018 MYA BRAND MD Ot K21. 9 GASTRO-ESOPHAGEAL REFLUX DISEASE WITHOUT 06/23/2018 MYA BRAND MD Ot R00. 1 BRADYCARDIA, UNSPECIFIED 06/23/2018 MYA BRAND MD, Ot Z82. 49 FAMILY HX OF ISCHEM HEART DIS AND OTH DI 06/23/2018 MYA BRAND MD Ot Z87.891 PERSONAL HISTORY OF NICOTINE DEPENDENCE 06/23/2018 MYA BRAND MD Ot Z95. 5 PRESENCE OF CORONARY ANGIOPLASTY IMPLANT 06/23/2018 MYA BRAND MD Ot E78. 5 HYPERLIPIDEMIA, UNSPECIFIED 06/23/2018 MYA BRAND MD Ot F32. 9 MAJOR DEPRESSIVE DISORDER, SINGLE EPISOD 06/23/2018 MYA BRAND MD Ot F41. 9 ANXIETY DISORDER, UNSPECIFIED 06/23/2018 MYA BRAND MD Ot I10 ESSENTIAL (PRIMARY) HYPERTENSION 06/23/2018 MYA BRAND MD Ot I25.110 ATHSCL HEART DISEASE OF [place] COR ART W 06/23/2018 MYA BRAND MD Ot I97.630 POSTPROC HEMATOMA OF A CIRC SYS ORG FOLL 06/23/2018 MYA BRAND MD Ot K21. 9 GASTRO-ESOPHAGEAL REFLUX DISEASE WITHOUT 06/23/2018 MYA BRAND MD Ot R00. 1 BRADYCARDIA, UNSPECIFIED 06/23/2018 MYA BRAND MD Ot Z82. 49 FAMILY HX OF ISCHEM HEART DIS AND OTH DI 06/23/2018 MYA BRAND MD Ot Z87.891 PERSONAL HISTORY OF NICOTINE DEPENDENCE 06/23/2018 MYA BRAND MD Ot Z95. 5 PRESENCE OF CORONARY ANGIOPLASTY IMPLANT 06/23/2018 MYA BRAND MD Ot E78. 5 HYPERLIPIDEMIA, UNSPECIFIED 06/23/2018 MYA BRAND MD, Ot F32. 9 MAJOR DEPRESSIVE DISORDER, SINGLE EPISOD 06/23/2018 MYA BRAND MD Ot F41. 9 ANXIETY DISORDER, UNSPECIFIED 06/23/2018 MYA BRAND MD Ot I10 ESSENTIAL (PRIMARY) HYPERTENSION 06/23/2018 MYA RBAND MD Ot I25.110 ATHSCL HEART DISEASE OF [place] COR ART W 06/23/2018 MYA BRAND MD Ot I97.630 POSTPROC HEMATOMA OF A CIRC SYS ORG FOLL 06/23/2018 MYA BRAND MD Ot K21. 9 GASTRO-ESOPHAGEAL REFLUX DISEASE WITHOUT 06/23/2018 MYA BRAND MD Ot R00. 1 BRADYCARDIA, UNSPECIFIED 06/23/2018 MYA BRAND MD Ot Z82. 49 FAMILY HX OF ISCHEM HEART DIS AND OTH DI 06/23/2018 MYA BRAND MD, Ot Z87.891 PERSONAL HISTORY OF NICOTINE DEPENDENCE 06/23/2018 MYA BRAND MD Ot Z95. 5 PRESENCE OF CORONARY ANGIOPLASTY IMPLANT 06/27/2018 MYA BRAND MD Ot E78. 5 HYPERLIPIDEMIA, UNSPECIFIED 06/27/2018 MYA BRAND MD, Ot F32. 9 MAJOR DEPRESSIVE DISORDER, SINGLE EPISOD 06/27/2018 MYA BRAND MD Ot F41. 9 ANXIETY DISORDER, UNSPECIFIED 06/27/2018 MYA BRAND MD Ot I10 ESSENTIAL (PRIMARY) HYPERTENSION 06/27/2018 MYA BRAND MD Ot I25.110 ATHSCL HEART DISEASE OF [place] COR ART W 06/27/2018 MYA BRAND MD, Ot I97.630 POSTPROC HEMATOMA OF A CIRC SYS ORG FOLL 06/27/2018 MYA BRAND MD, Ot K21. 9 GASTRO-ESOPHAGEAL REFLUX DISEASE WITHOUT 06/27/2018 MYA BRAND MD, Ot R00. 1 BRADYCARDIA, UNSPECIFIED 06/27/2018 MYA BRAND MD Ot Z82. 49 FAMILY HX OF ISCHEM HEART DIS AND OTH DI 06/27/2018 MYA BRAND MD, Ot Z87.891 PERSONAL HISTORY OF NICOTINE DEPENDENCE 06/27/2018 MYA BRAND MD Ot Z95. 5 PRESENCE OF CORONARY ANGIOPLASTY IMPLANT 06/30/2018 MYA BRAND MD, Ot E78. 5 HYPERLIPIDEMIA, UNSPECIFIED 06/30/2018 MYA BRAND MD, Ot F32. 9 MAJOR DEPRESSIVE DISORDER, SINGLE EPISOD 06/30/2018 MYA BRAND MD, Ot F41. 9 ANXIETY DISORDER, UNSPECIFIED 06/30/2018 MYA BRAND MD Ot I10 ESSENTIAL (PRIMARY) HYPERTENSION 06/30/2018 MYA BRAND MD, Ot I25.110 ATHSCL HEART DISEASE OF [place] COR ART W 06/30/2018 MYA BRAND MD, Ot I97.630 POSTPROC HEMATOMA OF A CIRC SYS ORG FOLL 06/30/2018 MYA BRAND MD, Ot K21. 9 GASTRO-ESOPHAGEAL REFLUX DISEASE WITHOUT 06/30/2018 MYA BRAND MD, Ot R00. 1 BRADYCARDIA, UNSPECIFIED 06/30/2018 MYA BRAND MD, Ot Z82. 49 FAMILY HX OF ISCHEM HEART DIS AND OTH DI 06/30/2018 MYA BRAND MD, Ot Z87.891 PERSONAL HISTORY OF NICOTINE DEPENDENCE 06/30/2018 MYA BRAND MD Ot Z95. 5 PRESENCE OF CORONARY ANGIOPLASTY IMPLANT Procedures There is no data. Results Test Result Range Methicillin resistant Staphylococcus aur eus (MRSA) screening culture - 06/16/18 13:20 Methicillin resistant Staphylococcus aureus (MRSA) scr eening culture NEG NRG Automated blood complete blood count (he mogram) panel - 06/17/18 03:11 Blood leukocytes automated count (number/volume) 11.3 10*3/uL 4.3-11.0 Blood erythrocytes automated count (number/volume) 5.20 10*6/uL 4.35-5.85 Venous blood hemoglobin measurement (mass/volume) 16.0 g/dL 13.3-17.7 Blood hematocrit (volume fraction) 46 % 40-54 Automated erythrocyte mean corpuscular volume 89 [ foz_us] 80-99 Automated erythrocyte mean corpuscular h emoglobin (mass per erythrocyte) 31 pg 25-34 Automated erythrocyte mean corpuscular h emoglobin concentration measurement (mass/volume) 35 g/dL 32-36 Automated erythrocyte distribution width ratio 13. 2 % 10.0- 14.5 Automated blood platelet count (count/volume) 248 10*3/uL 130-400 Automated blood platelet mean volume measurement 9.9 [foz_us] 7.4-10.4 Whole blood basic metabolic panel - 05/25 03/10 03:11 Serum or plasma sodium measurement (moles/volume) 138 mmol/L 135-145 Serum or plasma potassium measurement (moles/volume) 3.9 mmol/L 3.6-5.0 Serum or plasma chloride measurement (moles/volume) 107 mmol/L 98-107 Carbon dioxide 21 mmol/L 21-32 Serum or plasma anion gap determination (moles/volume) 10 mmol/L 5-14 Serum or plasma urea nitrogen measurement (mass/volume ) 17 mg/dL 7-18 Serum or plasma creatinine measurement (mass/volume) 0.90 mg/dL 0.60-1.30 Serum or plasma urea nitrogen/creatinine mass ratio 19 NRG Serum or plasma creatinine measurement w ith calculation of estimated glomerular filtration rate > NRG Serum or plasma glucose measurement (mass/volume) 98 mg/dL 70-105 Serum or plasma calcium measurement (mass/volume) 9.5 mg/dL 8.5-10.1 Radiology Report from [id number] on 12/20 11:12:00 Reason For Examleft sided weaknessREPORT PROCEDURE: CTA Head/Neck.TECHNIQUE: Contiguous non contrast images were obtained from the skull basethrough the vertex. After intravenous contrast administration, helical CTangiography of the neck was performed. Source data was reformatted into multipleMIP projections. Delayed post contrast acquisition was also obtained.INDICATION: 62-year-old male with history of left-sided upper and lowerextremity weakness, decreased sensation to the left-sided face.COMPARISONS: CT head of 12/19/2017.FINDINGS: There is normal arch origin of the great vessels. Both common carotidarteries are widely patent. There is some mixed plaque at the bifurcations butno evidence of hemodynamically significant stenosis. The cervical, highcervical, petrous and cavernous segments of both ICA are normal. The A1 and E0tyfxrsqs of both [place], M1, M2, and M3 trifurcation vessels of both MCA arenormal. The right vertebral artery is slightly dominant when compared to theleft. Both vertebral a rteries are widely patent to the skull base. The PICA,basilar artery, AICA, SCA, and turning machine operator helper are normal.Lung apices are clear. Superior mediastinum is normal. The parapharyngeal andparaspinous soft tissues are unremarkable. Mild cervical spondylosis seen.IMPRESSION: Unremarkable CTA head and neck. There is some minimal bilateralcarotid bifurcation disease but no evidence of hemodynamically significantstenosis. No intracranial large vessel occlusion identified.Tech Comments: IV Contrast Name: OMNIPAQUE 350Contrast amount in ml's: 100Dictated on workstation:[id number] Line FINAL DICTATED BY: ANDREW LARKIN V MDICTATED DT/TM: 12/19/2017 4:23 PMSIGNED BY: ANDREW LARKIN V MDSIGNED (ELECTRONIC SIGNATURE): 12/19/2017 5:18 PMTECHNOLOGIST: DERIC GARZON LRT, ARRT Encounters ACCT No. Visit Date/Time Discharge Status Pt. Type Provider Facility Loc./Unit Complaint [id number] 12/19/2017 16:22:00 018 23:59:59 CLS Emergency Via [facility] ED stroke symptoms [id number] 12/19/2017 15:39:00 018 19:16:00 DIS Outpatient Magan Peraza Via [facility] ED Hold TIA [id number] 12/20/2017 05:20:15 Document Registration [id number] 06/19/2018 11:00:00 018 23:59:59 CLS Preadmit KERRY DIAZ, TE Bailey Via [facility] CARD R07.89 ANTERIOR CHEST W ALL PAIN [id number] 06/15/2018 18:25:00 018 13:58:00 DIS Outpatient MYA BRAND MD [facility] CATH CHEST PAIN;DEPRESSION [id number] 11/02/2017 11:30:00 018 23:59:59 CLS Preadmit TE PAYNE MD [facility] CARD CAD,SOB [id number] 10/06/2017 11:52:00 017 23:59:59 CLS Outpatient TE PAYNE MD [facility] CARD CAD I25.10 [id number] 02/10/2016 13:38:00 016 15:58:00 DIS Emergency ZAPATA DO JONATHAN L [facility] ER CHEST PAIN [id number] 01/29/2016 00:11:00 016 23:59:59 CLS Preadmit RENATA ALFORD MD [facility] LAB STONES [id number] 11/25/2015 14:06:00 016 00:01:00 DIS Outpatient RENATA ALFORD MD [facility] LAB STONES [id number] 10/30/2015 14:29:00 016 23:59:59 CLS Outpatient RENATA ALFORD MD [facility] RAD LEFT RENAL STONE [id number] 10/15/2015 06:55:00 12:35:00 DIS Outpatient RENATA ALFORD MD [facility] SDC LEFT RENAL STONE [id number] 10/13/2015 05:46:00 23:59:59 CLS Outpatient RENATA ALFORD MD [facility] PREOP LEFT RENAL STONE [id number] 10/06/2015 14:01:00 23:59:59 CLS Outpatient RENATA ALFORD MD [facility] RAD LT RENAL STONE /FLANK P AIN [id number] 10/06/2015 12:37:00 23:59:59 CLS Outpatient RENATA ALFORD MD [facility] RAD STONE [id number] 12/26/2013 06:18:00 23:59:59 CLS Outpatient RENATA ALFORD MD [facility] LEFT URETERAL STONE [id number] 12/25/2013 13:53:00 23:59:59 CLS Outpatient RENATA ALFORD MD [facility] RAD STONE [id number] 12/25/2013 10:37:00 23:59:59 CLS Outpatient RENATA ALFORD MD [facility] PREOP LEFT URETERAL STONE [id number] 12/19/2013 13:26:00 14:25:00 DIS RENATA Su MD [facility] LEFT URETERAL STONE [id number] 06/16/2018 11:22:00 Document Registration
[2020-05-04 17:42] LABS: BASOPHILS % (AUTO) 0 % (0-10); EOSINOPHILS # (AUTO) 0.1 10^3/uL (0.0-0.3); EOSINOPHILS % (AUTO) 1 % (0-10); HEMATOCRIT 47 % (40-54); HEMOGLOBIN 15.8 G/DL (13.3-17.7); LYMPHOCYTES # (AUTO) 1.9 X 10^3 (1.0-4.0); LYMPHOCYTES % (AUTO) 15 % (12-44); MEAN CORPUSCULAR HEMOGLOBIN 30 PG (25-34); MEAN CORPUSCULAR HGB CONC 33 G/DL (32-36); MEAN CORPUSCULAR VOLUME 91 FL (80-99); MEAN PLATELET VOLUME 10.2 FL (7.4-10.4); MONOCYTES # (AUTO) 1.2 X 10^3 (0.0-1.0); MONOCYTES % (AUTO) 9 % (0-12); NEUTROPHILS # (AUTO) 9.4 X 10^3 (1.8-7.8); NEUTROPHILS % (AUTO) 74 % (42-75); PLATELET COUNT 309 10^3/uL (130-400); RED CELL DISTRIBUTION WIDTH 13.2 % (10.0-14.5); WHITE BLOOD COUNT 12.6 10^3/uL (4.3-11.0)
[2020-05-04 17:45] LABS: ALBUMIN 4.2 GM/DL (3.2-4.5)
[2020-05-04 17:46] LABS: CHLORIDE 106 MMOL/L (98-107); POTASSIUM 4.4 MMOL/L (3.6-5.0); SODIUM 141 MMOL/L (135-145)
[2020-05-04 17:47] LABS: CALCIUM 9.6 MG/DL (8.5-10.1)
[2020-05-04 17:48] LABS: GLUCOSE 101 MG/DL (70-105); TOTAL PROTEIN 7.2 GM/DL (6.4-8.2)
[2020-05-04 17:49] LABS: CARBON DIOXIDE 23 MMOL/L (21-32)
[2020-05-04 17:50] LABS: BILIRUBIN,TOTAL 0.9 MG/DL (0.1-1.0)
[2020-05-04 17:51] LABS: ALKALINE PHOSPHATASE 74 U/L (40-136); INR 0.9 (0.8-1.4); PROTHROMBIN TIME PATIENT 12.7 SEC (12.2-14.7)
[2020-05-04 17:52] LABS: CREATININE SERUM 0.91 MG/DL (0.60-1.30); GFR ESTIMATED > 60
[2020-05-04 17:53] LABS: BUN/CREATININE RATIO 18
[2020-05-04 17:54] LABS: ALANINE AMINOTRANSFERASE 95 U/L (0-55); MAGNESIUM 2.3 MG/DL (1.6-2.4)
--- NOTE | 2020-05-04 17:57 | Diagnostic Imaging Report ---
INDICATION: Chest pain. COMPARISON: Prior examination from 06/15/2019. EXAMINATION: Single view of the chest was obtained. FINDINGS: The heart size, mediastinal configuration and pulmonary vascularity are within normal limits. There is no pleural effusion, pneumothorax or pneumonia. The osseous structures are unremarkable. IMPRESSION: No acute cardiopulmonary abnormality. Dictated by: Dictated on workstation # [id number]
--- NOTE | 2020-05-04 18:28 | NUR ---
RESTING QUIETLY IN BED, RATES MILD PAIN OF 3 IN MID CHEST REPORTED TO INDIRA LAGUNAS.
[2020-05-04] MEDS ORDERED: morphine INJ 10 MG/ML 1ML (SYR OR VIAL) IVP STA (18:29)
[2020-05-04] MEDS ORDERED: ANTACID SUSP 30 ML UDC (MYLANTA) PO ONE (18:30)
[2020-05-04] MEDS ORDERED: LIDOCAINE 2% VISCOUS 15 ML UDC PO ONE (18:30)
[2020-05-04] MEDS ORDERED: ENOXAPARIN 80 MG/0.8 ML (LOVENOX) SYR SC ONE (18:45)
--- OUTSIDE RECORDS SUMMARY | 2020-05-04 19:03 | XMS REPORT | Encounter Summary ---
Author Author [facility] Organization [facility] Address Unknown Phone Unavailable Care Team Providers Care A[employer] Administrator Name Role Phone PCP Unavailable Encounter [...]
--- OUTSIDE RECORDS SUMMARY | 2020-05-04 19:03 | XMS REPORT | Encounter Summary ---
Author Author [facility] Organization [facility] Address Unknown Phone Unavailable Care Team Providers Care Medical Technician Assistant Name Role Phone PCP Unavailable Encounter Details Care Team Description Date Type Department [facility] Provider, MD Rosemary 07/14/2012 [facility] C Result Social History [...]
--- OUTSIDE RECORDS SUMMARY | 2020-05-04 19:03 | XMS REPORT | Encounter Summary ---
Author Author [facility] Organization [facility] Address Unknown Phone Unavailable Care Team Providers Care Pipe Supervisor Name Role Phone PCP Unavailable Encounter Details Care Team Description Date Type Department Anthony Garland MD [address] [place] [address] [phone] Meche Knowles MD [address] [place] [address] [phone] Unspecified transient cerebral ischemia 07/13/2012 [facility] - Encounter [address] 07/18/2012 [place] [address] Social History Date Tobacco Use Types Packs/Day Years Used Never Assessed Sex Assigned at Date Recorded Not on file Industry Job Start Date Occupation Not on file Not on file Not on file Travel End Travel History Travel Start No recent travel history available. documented as of this encounter Discharge Summaries * Anthony Garland MD - 12/21/2013 7:48 PM APPLIANCE COUNSELOR REPORT Name: MARIO NUNEZ Date of : 1955 Attending Physician: ROSITA PHYSICIAN Date of Admission: 07/13/2012 Date of Discharge: 07/18/2012 PRIMARY CARE PHYSICIAN: Dr. Nae Lanad CURRENT DIAGNOSES: 1. Possible transient ischemic attack. 2. Left lower extremity weakness. 3. Anxiety. 4. Coronary artery disease. 5. Patent foramen ovale. 6. Chest pain. 7. Hyperlipidemia. 8. Hypertension. PROCEDURE: Transesophageal echocardiogram. HOSPITAL COURSE: Mr. Nunez is a 57-year-old male with a reported history of transient ischemic attack, as well as known coronary artery disease. He presented initially to the [place] emergency department complaining of right-sided facial drooping, slurred speech, and some left-sided extremity weakness. He also complained of some transient chest pain intermittently. This was relieved by nitroglycerin. He was transported emergently to [facility], where he was evaluated for possible stroke symptoms. On arrival, most of his deficits had improved or resolved, except for some residual left lower extremity weakness that seemed to be mostly subjective. He also complains of some chronic left-sided vision abnormality. His NIH stroke scale was at level 1 when he arrived at [facility]. Due to some improvement, no invasive [...] was estimated at 72%. After discussion between [facility] and the patient, it was [...] MD Dictated By: cc: Nae Landa MD IANCE COUNSELOR documented in this encounter H&P Notes * Meche Knowles MD - 12/21/2013 7:51 PM APPLIANCE COUNSELOR REPORT Name: MARIO NUNEZ Date of : 1955 Attending Physician: PHYSICIAN ROSITA Date of Admission: 07/13/2012 CHIEF COMPLAINT: Stroke symptoms. HISTORY OF PRESENT ILLNESS: This is a 57-year-old white male patient with a history of TIA as well as coronary artery disease who presented to the [facility] Emergency Department with right-sided facial drooping, slurred [...] came here as a code stroke from [facility]. He was brought here by [facility]. However, most of his symptoms have resolved. [...] teens. He has his oldest son [place]. 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 He continues to work but he had [...] MD Dictated By: cc: Nae Landa MD IANCE COUNSELOR documented in this encounter Procedure Notes * Kaykay Flowers MD - 12/21/2013 7:48 PM APPLIANCE COUNSELOR Associated Order(s): EEG ROUTINE (UP TO 40 [...] seizures. Kaykay Flowers MD Dictated By: cc: IANCE COUNSELOR documented in this encounter Consult Notes * Nicki Norman MD - 12/21/2013 7:50 PM APPLIANCE COUNSELOR REPORT Name: MARIO NUNEZ Date of : 1955 Attending Physician: HOSPITALIST, PHYSICIAN Consulting Physician: Nicki Norman MD Date of Consultation: REQUESTING PHYSICIAN: Dr. Hinkle. REASON FOR CONSULTATION: Bradycardia. HISTORY OF PRESENT ILLNESS: Mr. Nunez is a 57-year-old male with a history of coronary artery disease status post percutaneous coronary intervention and stent insertion at [facility] in 2006 to his LAD due to a non-ST elevation myocardial infarction, presents to the hospital with multiple complaints. The patient was in his hometown of [facility] yesterday when around noon he began to experience chest pain, left leg weakness, vision changes in the left eye. He subsequently went to the hospital in [facility] where he was life flighted to [facility] [place] the [place] for further evaluation as a code stroke [...] HISTORY: 1. Coronary artery disease, status post stf-KY-ostuqdize myocardial infarction with percutaneous coronary intervention stent insertion to his LAD in 2006 at [facility]. 2. Chronic obstructive pulmonary disease (COPD. 3. Tobacco abuse disorder, ongoing. 4. Dyslipidemia. 5. Benign prostatic hypertrophy. 6. Hypertension. 7. Nephrolithiasis. 8. Chronic sinusitis. PAST SURGICAL HISTORY: 1. Left testicular torsion requiring orchiectomy. 2. Colonoscopy and EGD. 3. Coronary angiography at [facility] in 2006. SOCIAL HISTORY: He is . [...] did have coronary artery disease with an [place], although did not have any intervention. REVIEW [...] patient did have a coronary angiography at [facility] in 2006 where he underwent PCI and [...] artery disease. Status post LAD stenting at [facility] in 2006. He appeared there as a [...] consultation. Nicki Norman MD Dictated By: Yoko Lentz MD cc: IANCE COUNSELOR * Caroline Mayer DO - 12/21/2013 7:50 PM APPLIANCE COUNSELOR REPORT Name: MARIO NUNEZ Date of : [...] who presented to an emergency department in [place], [place] on July 13, 2012, with slurred speech, left-sided weakness, and left facial droop. The patient was subsequently transferred to [facility]) and on examination here, his symptoms seemed [...] teenager living at home. 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 Bdoezu-wa-fphy testing shows dysmetria with the left index finger. There is no clonus. Negative Babinski. DIAGNOSTIC DATA: Transthoracic echocardiogram shows: 1. Patent foramen ovale with evidence of oqjjo-hn-majk shunt following a bolus of agitated saline. [...] above. Caroline Mayer DO Dictated By: Meche Argueta MD cc: Authenticated and Edited by Caroline Mayer DO On 08/04/12 12:39:59 PM IANCE COUNSELOR * Wai Metcalf MD - 12/21/2013 6:53 PM APPLIANCE COUNSELOR REPORT Name: MARIO NUNEZ Date of : [...] coronary artery disease. He presented to the [place] Emergency Department. The question arose as to [...] 07/17/2012. Wai Metcalf MD Dictated By: cc: IANCE COUNSELOR documented in this encounter Plan of Treatment [...] Kaykay Flowers MD - 12/21/2013 7:48 PM APPLIANCE COUNSELOR REPORT Name: MARIO NUNEZ Date of : [...] MG/DL [facility]QUEST Specimen Blood Performing Organization Address City/State/[facility] Ph one Number SLRL [address] [place] [address] [facility] * ECHO TRANSESOPHAGEAL (07/17/2012 9:00 AM CDT) Specimen Narrative Performed At [facility] RAD Transesophageal Echocardiogram Report Name: MARIO NUNEZ Date: 07/17/2012 09:00 Chart #: [id number] : 1955 Gender: M Location: [facility] Tomo: lorraine Age: 57 Room #: H638 Referring: Za SCOTT Indication - PFO, TIA [phone] Procedure: The patient was kept NPO after [...] MARIO NUNEZ Date: 07/17/2012 09:00 Chart #: [id number] : 1955 Gender: M Location: [facility] Tomo: lorraine Age: 57 Room #: [...] 17 July 2012 13:11 Performing Organization Address [facility] Ph one Number [facility] [address] [facility] [place] [address] * Potassium (07/17/2012 3:00 AM CDT) Potassium 4.4 3.5 - 5.1 MEQ/L SUNQUEST Specimen Blood Performing Organization Address City/[facility] Ph one Number SLRL [address] [place], [place] [address] SUNQUEST * US Venous Duplex Lower Extremity bilat (07/16/2012 8:45 AM CDT) Specimen Narrative Performed At [facility] Patient: MARIO NUNEZ Phone #: Mira Dx Rec#: [id number] Sex: M : 1955 Hemant#: [id number] Location: [place] [address] Check-in#: [id number] Procedure Requested: [id number] US VENOUS DU PLEX BILAT LOWER EXT Reason For Exam: LIMB SWELLING Exam Ordered: 07/15/2012 203 3 Exam Date/Time: 07/16/2012914 Check-in Date/Time: 07/15/20122145 Attendin HOSPITALISTKAI "" Requestin ALISIA SCOTT Referrin STEFF REFERRING DR Galo Care: [phone] NAE LANDA MD US VENOUS DUPLEX BILATERAL [...] Signed (Authenticated, Released) Date-T ria: 07/16/2012 1328 Payloader Operator- GARCÍA Veliz, Staff Radiologist Dictated By- GAYLE GOEL M.D., Resid ent Staff Physician- GARCÍA Ramirez, Staff Radiologist Authenticated By- GARCÍA Veliz, Staff Radiologist Procedure Note Interface, Rad Conversion - 12/22/2013 12:02 AM APPLIANCE COUNSELOR REPORT Patient: MARIO NUNEZ Phone #: Mira Dx Rec#: [id number] Sex: M : 1955 Hemant#: [id number] Location: [place] [address] Check-in#: [id number] Procedure Requested: [id number] US VENOUS DUPLEX BILAT LOWER EXT Reason For Exam: LIMB SWELLING Exam Ordered: 07/15/20122032 Exam Date/Time: 07/16/2012914 Check-in Date/Time: 07/15/20122145 Attendin HOSPITALPHYSICIAN JAVI "" Requestin ALISIA SCOTT Referrin NO, REFERRING DR Primary Care: [phone] NAE LANDA MD US VENOUS DUPLEX BILATERAL [...] report. Signed (Authenticated, Released) Date-Time: 07/16/2012 1328 Payloader Operator- GARCÍA TAN M.D., Staff Radiologist Dictated By- [...] Organization Address City/State/Zipcode one Number SLRL [address] [place], [place] [address] [place] * CT Chest w contrast (07/15/2012 1:15 PM CDT) Specimen Narrative Performed At [facility] Patient: MARIO NUNEZ Phone #: Med Rec#: [id number] Sex: M : 1955 Hemant#: [id number] Location: [facility] H638 01 Check-in#: [id number] Procedure Requested: [id number] CT CHEST W C ONTRAST Reason For Exam: ABN FINDING PREV STUDY SPECIFY Exam Ordered: 07/15/2012 124 1 Exam Date/Time: 07/15/2012 1345 Check-in Date/Time: 07/15/2012 1345 Attendin KAI BECKER "" Requestin MECHE KNOWLES Referrin NO, REFERRING Primary Care: [phone] NAE LANDA MD CT CHEST W CONTRAST [...] Signed (Authenticated, Released) Date-T ria: 07/15/2012 1422 Payloader Operator- GARCÍA Veliz, Staff Radiologist Dictated By- GARCÍA TAN M.D., Staff Radiologist Staff Physician- GARCÍA Ramirez, Staff Radiologist Authenticated By- GARCÍA Veliz, Staff Radiologist Procedure Note Interface, Rad Conversion - 12/22/2013 12:03 AM APPLIANCE COUNSELOR REPORT Patient: MARIO NUNEZ Phone #: Mira Dx Rec#: [id number] Sex: M : 1955 Hemant#: [id number] Location: [place] [address] Check-in#: [id number] Procedure Requested: [id number] CT CHEST W CONTRAST Reason For Exam: ABN FINDING PREV STUDY SPECIFY Exam Ordered: 07/15/2012 1241 Exam Date/Time: 07/15/2012 1345 Check-in Date/Time: 07/15/2012 1345 Attendin HOSPITALIST, PHYSICIAN "" Requestin MECHE KNOWLES Referrin NO, REFERRING DR Primary Care: [phone] NAE LANDA MD CT CHEST W CONTRAST [...] chest Signed (Authenticated, Released) Date-Time: 07/15/2012 1422 Payloader Operator- GARCÍA TAN M.D., Staff Radiologist Dictated By- GARCÍA TAN M.D., Staff Radiologist Staff Physician- GARCÍA TAN M.D., Staff Radiologist Authenticated By- GARCÍA TAN M.D., Staff Radiologist Performing Organization Address City/State[facility] Ph one Number [facility] * Toxicology [...] tricyclic antidepressants. Specimen Urine Performing Organization Address City/[facility] one Number SLRL [address] [place], [place] [address] [place] * Tetrahydrocannabinol Confirmation (07/15/2012 8:56 AM CDT) Tetrahydrocanna See comments SUNQUEST binol Comment: Confirmation Marijuana metabolite (THCA) was detected. Technique: Gas Chromatography / Mass Spectroscopy Detectable Drugs: Marijuana metabolite (THCA) Test performed by [facility] [address] [address] Specimen Urine Performing Organization Address City/State/Zipcode one Number SLRL [address] [place], [place] [address] [place] * MRI Head w wo contrast (07/14/2012 5:49 PM CDT) Specimen Narrative Performed At [facility] Patient: MARIO NUNEZ Phone #: Mira Dx Rec#: [id number] Sex: M : 1955 Hemant#: [id number] Location: [facility] H638 01 Check-in#: [id number] Procedure Requested: [id number] MRI HEAD W W O CONTRAST Reason For Exam: tia Exam Ordered: 07/14/2012 074 7 Exam Date/Time: 07/14/2012 1830 Check-in Date/Time: 07/14/2012 1759 Attendin HOSPITALISTKAI "" Requestin CHRIS MELENDEZ Referrin NO, REFERRING DR Primary Care: [phone] NAE LANDA MD MRI HEAD W WO [...] or edited the final report. INTERPRETATION SITE: [facility] [place]. Signed (Authenticated, Released) Date-T ria: 07/15/2012 1054 Payloader Operator- PATRICK LANDRUM M.D., Staff Radiologist Dictated By- JANETT OSCAR M.D., Resid ent Staff Physician- PATRICK LANDRUM M.D., Azael guzman Radiologist Authenticated By- PATRICK LANDRUM M.D., Staff Radiologist Procedure Note Interface, Rad Conversion - 12/22/2013 12:03 AM APPLIANCE COUNSELOR REPORT Patient: MARIO NUNEZ Phone #: Mira Dx Rec#: [id number] Sex: M : 1955 Hemant#: [id number] Location: [place] [address] Check-in#: [id number] Procedure Requested: [id number] MRI HEAD W WO CONTRAST Reason For Exam: tia Exam Ordered: 07/14/2012 0747 Exam Date/Time: 07/14/2012 1830 Check-in Date/Time: 07/14/2012 1759 Attendin HOSPITALIST, PHYSICIAN "" Requestin CHRIS MELENDEZ Referrin NO, REFERRING DR Primary Care: [phone] NAE LANDA MD MRI HEAD W WO [...] or edited the final report. INTERPRETATION SITE: [facility] [place]. Signed (Authenticated, Released) Date-Time: 07/15/2012 1054 Payloader Operator- PATRICK LANDRUM M.D., Staff Radiologist Dictated By- JANETT OSCAR M.D., Resident Staff Physician- PATRICK LANDRUM M.D., Staff Radiologist Authenticated By- PATRICK LANDRUM M.D., Staff Radiologist Performing Organization Address City/State/[facility] Ph one Number [facility] * ECHO TRANSTHORACIC (07/14/2012 3:35 PM CDT) Specimen Narrative Performed At [facility] RAD ECHOCARDIOGRAM REPORT [facility] Name: MARIO NUNEZ Date: 07/14/2012 15:35 Chart #: [id number] : 1955 Location: [facility] IP Sono: [email or web address] Age: 57 Gender: M Referring: NICKI NORMAN Room #: 638 Fellow: Indication Chest pain, TIA Procedure -[id number] Complete Echo 2D/Color flow/Doppler BP: 132 / [...] MARIO NUNEZ Date: 07/14/2012 15:35 Chart #: [id number] : 1955 [email or web address] Age: 57 Gender: M Referring: NICKI NORMAN Room #: 638 Fellow: Indication Chest pain, TIA Procedure -57305 Complete Echo 2D/Colorflow/Doppler BP: 132 / 71 [...] Performing Organization Address City/State/Zipcode Ph one Number [facility] [address] [facility] [place] [address] * CT Abdomen Pelvis wo contrast (07/14/2012 2:13 PM CDT) Specimen Narrative Performed At [facility] Patient: MARIO NUNEZ Phone #: Mira Dx Rec#: [id number] Sex: M : 1955 Hemant#: [id number] Location: [place] [address] Check-in#: [id number] Procedure Requested: [id number] CT ABD PELVI S WO CONTRAST. Reason For Exam: ABDOMINAL PAIN Exam Ordered: 07/14/2012 133 2 Exam Date/Time: 07/14/2012 1423 Check-in Date/Time: 07/18/2012 0636 Attendin HOSPITALIST, KAI DSOUZA "" Requestin CHRIS MELENDEZ Referrin STEFF, REFERRING DR Primary Care: [id number] NAE LANDA MD CT ABD PELVIS WO [...] or edited the final report. READING SITE: [facility]. Signed (Authenticated, Released) Date-T ria: 07/14/2012 1539 Payloader Operator- CHERY DIMAS M.D. , Staff Radiologist Dictated By- TAYO BRICE D.O., Resident Staff Physician- CHERY DIMAS M.D., Staff Radiologist Authenticated By- CHERY DIMAS M.D. , Staff Radiologist Procedure Note Interface, Rad Conversion - 12/21/2013 11:56 PM APPLIANCE COUNSELOR REPORT Patient: MARIO NUNEZ Phone #: Mira Dx Rec#: [id number] Sex: M : 1955 Hemant#: [id number] Location: [place] [address] Check-in#: [id number] Procedure Requested: [id number] CT ABD PELVIS WO CONTRAST. Reason For Exam: ABDOMINAL PAIN Exam Ordered: 07/14/2012 1332 Exam Date/Time: 07/14/2012 1423 Check-in Date/Time: 07/18/2012 0636 Attendin HOSPITALIST, PHYSICIAN "" Requestin CHRIS MELENDEZ Referrin NO, REFERRING DR Primary Care: [phone] NAE LANDA MD CT ABD PELVIS WO [...] or edited the final report. READING SITE: [facility]. Signed (Authenticated, Released) Date-Time: 07/14/2012 1539 Payloader Operator- CHERY DIMAS M.D., Staff Radiologist Dictated By- TAYO BRICE D.O., Resident Staff Physician- CHERY DIMAS M.D., Staff Radiologist Authenticated By- CHERY DIMAS M.D., Staff Radiologist Performing Organization Address [facility] Ph one Number [facility] * Culture, Urine (07/14/2012 12:45 PM CDT) Specimen Urine Narrative Performed At [facility]PORT [facility] Specimen/Source: URINE/CLEAN VOIDED UR Collected: 07/14/2012 12:45 Status: Final Last Updated: 22:13 Culture result (Final) No growth Performing Organization Address [facility] one Number RL [address] [place] [address] [facility] * Urine Nitrite (07/14/2012 12:45 PM CDT) Nitrite Urine Negative Negative SUNQUEST Specimen Urine Performing Organization Address [facility] one Number RL [address] [place] [address] [place] * Urinalysis (07/14/2012 12:45 PM CDT) Appearance, Yellow SUNQUEST Urine Specific 1.014 1.001 - 1.030 SUNQUEST [place], UA PH Urine 7.0 5.0 - 8.0 SUNQUEST Hemoglobin Negative Negative SUNQUEST Urine Leukocyte Negative Negative SUNQUEST Esterase Bilirubin Urine Negative Negative SUNQUEST Glucose Urine Negative Negative MG/DL SUNQUEST Ketones Urine Moderate (A) Negative MG/DL SUNQUEST Protein Urine Negative Negative MG/DL SUNQUEST Qual Urobilinogen Negative Negative EU/DL SUNQUEST Urine Specimen Urine Performing Organization Address [facility] one Number R [address] [address] [place]QUEST * CV MPI PET Pharmocologic Rest Stress without Calcium Score (07/14/2012 9:30 AM CDT) Specimen Narrative Performed At NAME: MARIO NUNEZ [facility] RAD : [id number] AGE: 57 GENDER: M ACCOUNT NUM: [id number] TEST: REST/STRESS REGADENOSDANA CASTANEDAU M-82 PET/CT REPORT [...] approximately 1500 hours. Cezar Hollis MD [address] [facility], [address] [place] [address] DICTATED DATE: 2012-07-14 00:00:00.0 LICENSED MASSAGE THERAPIST DATETIME: 2012-07-14 18:1 0:28.0 ACTUAL TEST TIME: PROVIDER APPROVAL DATETIME: 2012-07-14 18:15:28.0 Procedure Note Interface, Rad Conversion - 01/01/2014 11:48 AM CDT NAME: MARIO NUNEZ : [id number] AGE: 57 GENDER: M ACCOUNT NUM: [id number] TEST: REST/STRESS REGADENOSON RUBIDIUM-82 PET/CT REPORT TEST [...] approximately 1500 hours. Cezar Hollis MD [address] [facility], [address] [place] [address] DICTATED DATE: 2012-07-14 00:00:00.0 LICENSED MASSAGE THERAPIST DATETIME: 2012-07-14 18:10:28.0 ACTUAL TEST TIME: PROVIDER APPROVAL DATETIME: 2012-07-14 18:15:28.0 Performing Organization Address [facility] Ph one Number [facility]ARDIOLOGY [facility] [address] [facility] [place] [address] * Acute Hepatitis Panel (07/14/2012 3:15 AM CDT) Hepatitis B Non-reactive Non-reactive SUNQUEST Surface Ag Hepatitis B Non-reactive Non-reactive SUNQUEST Core Ab IgM Hepatitis A Ab Non-reactive Non-reactive SUNQUEST IgM Hepatitis C Ab Non-reactive Non-reactive SUNQUEST Specimen Blood Performing Organization Address [facility] one Number SLRL [address] [place], [place] [address] [place]QUEST * Comprehensive Metabolic [...] mL/min/1.73 sq.m Specimen Blood Performing Organization Address [facility] one Number AMOLL [address] [place] [address] [place] * Creatine Kinase (07/14/2012 3:15 AM CDT) Creatine Kinase 51 IU/L SUNQUEST Comment: White Female: 30 - 160 IU/L Black Female: 30 - 430 IU/L White Male: 40 - 425 IU/L Black Male: 50 - 850 IU/L Specimen Blood Performing Organization Address [facility] one Number EVANRL [address] [place] [address] [place] * Lipid Panel (07/14/2012 3:15 [...] SUNQUEST Cholesterol Specimen Blood Performing Organization Address [facility] one Number SLOAN [address] [address] [place] * Troponin (07/14/2012 3:15 AM [...] of symptoms. Specimen Blood Performing Organization Address [facility] one Number EVANRRobert [address] [place] [address] [place]QUEST * Complete Blood Count (07/13/2012 [...] [place] SUNQUEST Specimen Blood Performing Organization Address [facility] one Number [facility]RL [address] [place] [address] [place] * Coagulation Screen (07/13/2012 11:22 PM CDT) Protime 14.0 11.7 - 14.3 SEC SUNQUEST INR 1.1 0.9 - 1.1 SUNQUEST APTT 34 22 - 34 SEC SUNQUEST Fibrinogen 373 146 - 390 MG/DL SUNQUEST Assay Specimen Blood Performing Organization Address [facility] one Number [facility]RL [address] [place] [address] [place] * Thyroid Stimulating Hormone (07/13/2012 11:22 PM CDT) Thyroid 4.40 0.47 - 4.68 UIU/ML SUNQUEST Stimulating Hormone Specimen Blood Performing Organization Address [facility] one Number [facility] [address] [place] [address] [place] * Lipase (07/13/2012 11:22 PM CDT) Lipase 82 23 - 300 IU/L SUNQUEST Specimen Blood Performing Organization Address [facility] one Number [facility]RL [address] [place] [address] [place] * Magnesium (07/13/2012 11:22 PM CDT) Magnesium 2.2 1.4 - 2.7 MG/DL SUNQUEST Specimen Blood Performing Organization Address [facility] one Number [facility]RL [address] [place] [address] [place] * Hemoglobin A1C (07/13/2012 11:22 PM CDT) HEMOGLOBIN A1C 5.5 4.0 - 5.6 % SUNQUEST Comment: Non-diabetic 4.0 - 5.6 % Prediabetes 5.7 - 6.4 % Diabetes >= 6.5 % Specimen Blood Performing Organization Address City/State/Zipcode Ph one Number SLRL [address] [place], [place] [address] [place] * CT Angio Neck (07/13/2012 7:04 PM CDT) Specimen Narrative Performed At [facility] Patient: MARIO NUNEZ Phone #: Mira Dx Rec#: [id number] Sex: M : 1955 Hemant#: [id number] Location: [place] [address] Check-in#: [id number] Procedure Requested: [id number] CT ANGIO NEC K Reason For Exam: TIA Exam Ordered: 07/13/2012 182 6 Exam Date/Time: 07/13/2012 1935 Check-in Date/Time: 07/13/20121826 Attendin HOSPITALISTKAI "" Requestin ALCIRAPOONAMMARIO A Referrin NO, REFERRING DR Primary Care: [phone] NAE LANDA MD CT ANGIO NECK Jul [...] recommended CT of the Chest. READING SITE: [facility] ATTESTATION STATEMENT: The staff radiologist has personally re viewed the images and dictated, reviewed, or edited the final report. Signed (Authenticated, Released) Date-T ria: 07/14/2012 1126 Payloader Operator- PATRICK LANDRUM M.D., Staff Radiologist Dictated By- Liborio RUIZ M.D. Staff Physician- PATRICK LANDRUM M.D., Azael issa Radiologist Authenticated By- PATRICK LANDRUM M.D., Staff Radiologist Procedure Note Interface, Rad Conversion - 12/22/2013 12:04 AM APPLIANCE COUNSELOR REPORT Patient: NUNEZMARIO CHAN Aamir Phone #: Mira Dx Rec#: [id number] Sex: M : 1955 Hemant#: [id number] Location: [place] [address] Check-in#: [id number] Procedure Requested: [id number] CT ANGIO NECK Reason For Exam: TIA Exam Ordered: 07/13/20121825 Exam Date/Time: 07/13/20121934 Check-in Date/Time: 07/13/20121826 Attendin HOSPITALIST, PHYSICIAN "" Requestin MARIO ELI Referrin NO, REFERRING Primary Care: [id number] NAE LANDA MD CT ANGIO NECK Jul [...] recommended CT of the Chest. READING SITE: [facility]. ATTESTATION STATEMENT: The staff radiologist has personally reviewed the images and dictated, reviewed, or edited the final report. Signed (Authenticated, Released) Date-Time: 07/14/2012 1126 Payloader Operator- PATRICK LANDURM M.D., Staff Radiologist Dictated By- ABDI HARPER M.D., Resident Staff Physician- PATRICK LANDRUM M.D., Staff Radiologist Authenticated By- PATRICK LANDRUM M.D., Staff Radiologist Performing Organization Address City/State/Zipcode Ph one Number [facility] * CT Angio Head and Perfusion P (07/13/2012 7:03 PM CDT) Specimen Narrative Performed At [facility] Patient: MARIO NUNEZ Phone #: [employer]#: [id number] Sex: M : 1955 Hemant#: [id number] Location: [place] [address] Check-in#: [id number] Procedure Requested: 13824 CT ANGIO HEA D W WO AND PERFUS W P Reason For Exam: RIGHT FACE, ARM, AND LEG PARALYSIS Exam Ordered: 07/13/2012 182 6 Exam Date/Time: 07/13/20121939 Check-in Date/Time: 07/13/20121826 Attendin KAI BECKER "" Requestin MARIO ELI Referrin NO, REFERRING DR Primary Care: [id number] NAE LANDA MD CT Head (without contrast) CT Angiogram and CT Perfusion Head (with contrast) Jul 13, 2012 06:27:00 PM Indication: Stroke symptoms of RIGHT FACE, ARM, AND LEG PARALYSIS Comparison : Head CT from outside [facility] dated July 13, 2012 at 1609 hours [...] odontogenic in origin sinus disease. READING SITE: [facility]. ATTESTATION STATEMENT: The staff radiologist has personally re viewed the images and dictated, reviewed, or edited the final report. Signed (Authenticated, Released) Date-T ria: 07/14/2012 1125 Payloader Operator- PATRICK LANDRUM M.D., Staff Radiologist Dictated By- Liborio RUIZ M.D. Staff Physician- Azael REBOLLEDO M.D. Radiologist Authenticated By- PATRICK LANDRUM M.D., Staff Radiologist Procedure Note Interface, Rad Conversion - 12/22/2013 12:04 AM APPLIANCE COUNSELOR REPORT Patient: MARIO NUNEZ Phone #: [employer] Rec#: [id number] Sex: M : 1955 [facility]#: [id number] Location: [facility] H638 01 Check-in#: [id number] Procedure Requested: 05410 CT ANGIO HEAD W WO AND PERFUS W P Reason For Exam: RIGHT FACE, ARM, AND LEG PARALYSIS Exam Ordered: 07/13/20121825 Exam Date/Time: 07/13/20121939 Check-in Date/Time: 07/13/20121826 Attendin HOSPITALIST, PHYSICIAN "" Requestin ALCIRAPOONAMMARIO A Referrin NO, REFERRING DR Primary Care: [id number] NAE LANDA MD CT Head (without contrast) [...] odontogenic in origin sinus disease. READING SITE: [facility]. ATTESTATION STATEMENT: The staff radiologist has personally reviewed the images and dictated, reviewed, or edited the final report. Signed (Authenticated, Released) Date-Time: 07/14/2012 1125 Payloader Operator- PATRICK LANDRUM M.D., Staff Radiologist Dictated By- ABDI HARPER M.D., Resident Staff Physician- PATRICK LANDRUM M.D., Staff Radiologist Authenticated By- PATRICK LANDRUM M.D., Staff Radiologist Performing Organization Address City/State/Zipcode Ph one Number [facility] * XR Chest single view frontal (07/13/2012 6:43 PM CDT) Specimen Narrative Performed At [facility] Patient: MARIO NUNEZ Phone #: [employer] Rec#: [id number] Sex: M : 1955 Hemant#: [id number] Location: [place] [address] 01 Check-in#: [id number] Procedure Requested: [id number] DX CHEST SIN GLE VIEW Reason For Exam: CHEST PAIN Exam Ordered: 07/13/2012 184 0 Exam Date/Time: 07/13/2012 1855 Check-in Date/Time: 07/13/2012 1840 Attendin HOSPITALISTKAI "" Requestin MARIO ELI Referrin NO, REFERRING Primary Care: [id number] NAE LANDA MD DX CHEST SINGLE VIEW [...] markers when patient's condition permits. READING SITE: [facility] ATTESTATION STATEMENT: The staff radiologist has personally re viewed the images and dictated, reviewed, or edited the final report. Signed (Authenticated, Released) Date-T ria: 07/14/2012 0556 Payloader Operator- TOMÁS RONQUILLO M.D., Staff Radiologist Dictated By- Liborio RUIZ M.D. Staff Physician- TOMÁS CAMPOS M.D., Staff Radiologist Authenticated By- TOMÁS RONQUILLO M.D., Staff Radiologist Procedure Note Interface, Rad Conversion - 12/22/2013 12:05 AM APPLIANCE COUNSELOR REPORT Patient: MARIO NUNEZ Phone #: [employer] Rec#: [id number] Sex: M : 1955 Hemant#: [id number] Location: [facility] 01 Check-in#: [id number] Procedure Requested: [id number] DX CHEST SINGLE VIEW Reason For Exam: CHEST PAIN Exam Ordered: 07/13/2012 184 Exam Date/Time: 07/13/2012 185 Check-in Date/Time: 07/13/2012 184 Attendin HOSPITALIST, PHYSICIAN "" Requestin MARIO ELI Referrin NO, REFERRING DR Primary Care: [id number] NAE LANDA MD DX CHEST SINGLE VIEW [...] markers when patient's condition permits. READING SITE: [facility]. ATTESTATION STATEMENT: The staff radiologist has personally reviewed the images and dictated, reviewed, or edited the final report. Signed (Authenticated, Released) Date-Time: 07/14/2012 0556 Payloader Operator- TOMÁS HARDEN M.D., Staff Radiologist Dictated By- ABDI HARPER M.D., Resident Staff Physician- TOMÁS HARDEN M.D., Staff Radiologist Authenticated By- TOMÁS HARDEN M.D., Staff Radiologist Performing Organization Address City/State[place] [place] one Number MARCELACHRISTO documented in this encounter Visit Diagnoses Diagnosis Unspecified transient cerebral ischemia documented in this encounter
--- OUTSIDE RECORDS SUMMARY | 2020-05-04 19:03 | XMS REPORT | Encounter Summary ---
Author Author [facility] Organization [facility] Address Unknown Phone Unavailable Care Team Providers Care Aluminum Container Tester Name Role Phone PCP Unavailable Encounter Details Care Team Description Date Type Department [facility] Provider, MD Rosemary 07/14/2012 [facility] H[facility]IC [facility] C Social History Date [...]
--- OUTSIDE RECORDS SUMMARY | 2020-05-04 19:03 | XMS REPORT | Encounter Summary ---
Author Author [facility] Organization [facility] Address Unknown Phone Unavailable Care Team Providers Care Lead Operator Name Role Phone PCP Unavailable Encounter Details Care Team Description Date Type Department [facility] Provider, MD Rosemary 07/17/2012 [facility] HIST[facility]IC CL[facility]I C Result Social History [...]
--- OUTSIDE RECORDS SUMMARY | 2020-05-04 19:03 | XMS REPORT | Encounter Summary ---
Author Author [facility] Address Unknown Phone Unavailable Care Team Providers Care Spectacle Truer Name Role Phone PCP Unavailable Encounter Details Care Team Description Date Type Department Cody Espitia MD [address] [facility] [address] [place] [address] [phone] 07/14/2012 [facility] - Hist [facility]ORIC [facility] [...]
--- OUTSIDE RECORDS SUMMARY | 2020-05-04 19:03 | XMS REPORT | Clinical Summary ---
Author Author [facility] Organization [facility] Address Unknown Phone Unavailable Care Team Providers Care Auxiliary Engineer Name Role Phone PCP Unavailable Allergies Not [...]
--- OUTSIDE RECORDS SUMMARY | 2020-05-04 19:03 | XMS REPORT | Encounter Summary ---
Author Author [facility] Organization [facility] Address Unknown Phone Unavailable Care Team Providers Care Eco Industrial Development Consultant Name Role Phone PCP Unavailable Encounter Details [...]
--- OUTSIDE RECORDS SUMMARY | 2020-05-04 19:03 | XMS REPORT | Encounter Summary ---
Author Author [facility] Organization [facility] Address Unknown Phone Unavailable Care Team Providers Care Sales Teacher Name Role Phone PCP Unavailable Encounter Details [...]
--- OUTSIDE RECORDS SUMMARY | 2020-05-04 19:03 | XMS REPORT | Encounter Summary ---
Author Author [facility] Organization [facility] Address Unknown Phone Unavailable Care Team Providers Care Pattern Painter Name Role Phone PCP Unavailable Encounter Details Care Team Description Date Type Department [facility] Provider, MD Rosemary 07/14/2012 [facility]-Hist EF [facility] HISTORIC CLINI C Social History Date [...] Echo PROSOLV Fraction Specimen Performing Organization Address City/State/[place] Ph one Number PROSOLV documented in this encounter Visit Diagnoses Not on filedocumented in this encounter
--- OUTSIDE RECORDS SUMMARY | 2020-05-04 19:03 | XMS REPORT | Encounter Summary ---
Author Author [facility] Organization [facility] Address Unknown Phone Unavailable Care Team Providers Care Archery Instructor Name Role Phone PCP Unavailable Encounter Details [...]
--- OUTSIDE RECORDS SUMMARY | 2020-05-04 19:03 | XMS REPORT | Encounter Summary ---
Author Author [facility] Address Unknown Phone Unavailable Care Team Providers Care Business Support Coordinator Name Role Phone PCP Unavailable Encounter Details Care Team Description [place] [address] [facility] [address] [place] [address] [phone] 07/15/2012 [facility] - [facility]IC [facility] [...]
--- OUTSIDE RECORDS SUMMARY | 2020-05-04 19:03 | XMS REPORT | Encounter Summary ---
Author Author [facility] Organization [facility] Address Unknown Phone Unavailable Care Team Providers Care Plant Tech Name Role Phone PCP Unavailable Encounter Details Care Team Description Date Type Department [facility] Provider, MD Rosemary 07/14/2012 [facility] HIST[facility]IC CLINI C Result Social [...]
--- OUTSIDE RECORDS SUMMARY | 2020-05-04 19:04 | XMS REPORT ---
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[employer] [facility] [employer] [facility] [employer] Address [address] [address] Care Team Providers Care Floor Winder Name Role Phone PAWAN MUELLER Unavailable JOSE BOLAND Unavailable JOSE BOLAND Unavailable LAMBERTO BROOKS DO Unavailable Unavailable Unavailable Unavailable Unavailable Unavailable Allergies Allergy Reported Allergen(s) Allergy Type Date of Reaction(s) Care Facility Classificati Onset Provider on Aspirin Aspirin Drug Allergy 02-10-2016 RENATA ALFORD Not (16 sources) Available ([id number]) Encounters Encounter Date Encounter Type Encounter Diagnosis Care Provider Facility Start: Emergency department LAMBERTO BROOKS DO [facility] Via [facility] [place] 05-04-2020 patient visit [facility] Start: Admission to same day Pleuritic pain MYA BRAND Via [facility] 06-15-2018 surgery center Work Phone: [place] ([phone]) End: 06-17-2018 Start: Evaluation and Chest pain MYA BRAND 06-15-2018 management of Work Phone: inpatient End: 06-17-2018 Start: Patient encounter 06-15-2018 procedure End: 06-17-2018 Start: Emergency department 06-15-2018 patient visit Start: Emergency department NA NA Not Avai lable ([id number]) 12-19-2017 patient visit Start: Patient encounter NA NA Not Availab le ([id number]) 12-19-2017 procedure End: 12-19-2017 Start: Patient encounter TE PAYNE MD Not Availa ble ([id number]) 10-06-2017 procedure Start: Patient encounter 01-29-2016 procedure Start: Patient encounter RENATA ALFORD MD Not Availab le ([id number]) 11-25-2015 procedure End: 01-28-2016 Start: Patient encounter RENATA ALFORD MD Not Availab le ([id number]) 10-30-2015 procedure Start: Patient encounter RENATA ALFORD MD Not Availab le ([id number]) 10-15-2015 procedure End: 10-15-2015 Start: Patient encounter RENATA ALFORD MD Not Availab le ([id number]) 12-26-2013 procedure Start: Patient encounter RENATA ALFORD MD Not Availab le ([id number]) 12-25-2013 procedure Start: Patient encounter NA NA Not Availab le ([id number]) 12-25-2013 procedure Start: Patient encounter RENATA ALFORD MD Not Availab le ([id number]) 12-19-2013 procedure End: 12-20-2013 ENCOUNTER FOR OTHER RENATA ALFORD MD Not Available ([phone]) PREPROCEDURAL EXAMIN EXAM PRE-OPERATIVE NA NA Not Available ([phone]) NOS Medical Equipment No Information Goals No Information Immunizations Immunizatio Immunization Notes Care Provider Facility n Date Vaccination ; JOSE BOLAND Via [facility] Translations: Work Phone: [place] ([phone]) [vaccine] Interventions No Information Medications Medication Drug [...] Sublingual for Chest Pain Discontinued (2 sources) [place] 3 Polyunsat Fatty Start: take 1 capsule [place] 3 Polyunsat Fatty Acids (Fish Oil Acids (Fish Oil 1,000 Mg 06-17-2018 by mouth twice 1,00 0 Mg Capsule) 1,000 Mg Cap 1,000 Mg Capsule) 1,000 Mg Cap daily at ORAL Twice A D ay With Meals 60 Cap (2 sources) mealtime 06/17/18 Omeprazole 20 Mg End: Omeprazole 20 Mg Ca psule., 20 Mg Oral Capsule.dr, 20 Mg Oral 10-13-2015 Daily Disconti nued [...] End: 12-19-2017 Payers Date Payer Normalized Payer [id number] Plan of Treatment Date Care Activity Detail Author Start: Electrocardiographic Tracing only of Via [facility] 06-17-2018 procedure electrocardiogram [place] (0 0000) Problems Active Problems Problem Problem Date Last Documented Episodic/Chr Provider Classificati Recorded Date onic on Anxiety Anxiety disorder, unspecified Chronic NA NA disorders (12 sources) Calculus of Urinary calculus, unspecified ; Episodic RENATA PRASHANTH urinary Translations: [Calculus of kidney] MD tract (12 sources) Cardiac Bradycardia, unspecified Episodic dysrhythmias (11 sources) Complication Postprocedural hematoma of a Episodi c s of circulatory system organ or surgical structure following a cardi ac procedures catheterization or medical care (11 sources) Conditions Dizziness and giddiness Episodic associated with dizziness or vertigo (2 sources) 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 ; Translati ons: other heart [Atherosclerotic heart dise ase of disease [place] coronary artery with (15 sources) unstable angina [...] BOLAND (3 sources) 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 Episodic NA NA aftercare therapy [...] Detail Performing Cl inician Start: Electrocardiograph MYA De Paz 06-17-2018 ic procedure Work Phone: Start: Electrocardiograph MYA De Paz 06-16-2018 ic procedure Work Phone: Start: Electrocardiograph JOSE Mcwilliams GREGG 06-15-2018 ic procedure Work Phone: Start: Plain chest X-ray JOSE Mcwilliams GREGG 06-15-2018 Results Test Name Value Interpreta Reference Facilit Date tion Range y Time laboratory on 2020-05-04 Albumin [Mass/Vol] 4.2 g/dL Negative 3.2-4.5 PENDING - 2-2 g/dL [facility] 020 N S 13:06-0 ([id number]) 400 ALP [Catalytic 74 U/L Negative 40-136 U/L PENDING activity/Vol] [facility] 020 [facility] 13:06-0 ([id number]) 400 ALT [Catalytic 95 U/L High 0-55 U/L PENDING activity/Vol] [facility] 020 N [facility] 13:06-0 ([id number]) 400 Anion gap 12 mmol/L Negative 5-14 PENDING [Moles/Vol] mmol/L [facility] 020 [facility] 13:06-0 ([id number]) 400 aPTT Coag (PPP) 31 s Negative 24-35 s PENDING [Time] [facility] 020 [facility] 13:06-0 ([id number]) 400 AST [Catalytic 127 U/L High 5-34 U/L PENDING activity/Vol] [facility] 020 [facility] 13:06-0 ([id number]) 400 Basophils (Bld) 0.0 10*3/uL Negative 0.0-0.1 PENDING 05-04 [#/Vol] 10*3/uL [facility] 020 [facility] 13:06-0 ([id number]) 400 Basophils/100 WBC 0 % Negative 0-10 % PENDING 05-042 (Bld) [facility] 020 [facility] 13:06-0 ([id number]) 400 Bilirubin [Mass/Vol] 0.9 mg/dL Negative 0.1-1.0 PENDING 12-2 mg/dL [facility] 020 [facility] 13:06-0 ([id number]) 400 Calcium [Mass/Vol] 9.6 mg/dL Negative 8.5-10.1 PENDING 07-1 2-2 mg/dL [facility] 020 [facility] 13:06-0 ([id number]) 400 Calcium [Mass/Vol] 9.4 mg/dL Negative 8.5-10.1 PENDING 07-1 2-2 mg/dL [facility] 020 [facility] 13:06-0 ([id number]) 400 Chloride [Moles/Vol] 106 mmol/L Negative 98-107 PENDING 0 7-12-2 mmol/L [facility] 020 [facility] 13:06-0 ([id number]) 400 CO2 [Moles/Vol] 23 mmol/L Negative 21-32 PENDING 2 mmol/L [facility] 020 N [facility] 13:06-0 ([id number]) 400 Creatinine 0.91 mg/dL Negative 0.60-1.30 PENDING [Mass/Vol] mg/dL [facility] 020 N [facility] 13:06-0 ([id number]) 400 Creatinine and > Invalid PENDING Glomerular Interpreta [facility] 020 filtration tion Code N [facility] 13:060 rate.predicted panel ([id number]) 400 - Serum, Plasma or Blood Eosinophils (Bld) 0.1 10*3/uL Negative 0.0-0.3 PENDING 09-24 [#/Vol] 10*3/uL [facility] 020 N [facility] 13:06-0 ([id number]) 400 Eosinophils/100 WBC 1 % Negative 0-10 % PENDING 09-24 (Bld) [facility] 020 N [facility] 13:06-0 ([id number]) 400 Erythrocyte 13.2 % Negative 10.0-14.5 PENDING distribution width % [facility] 020 (RBC) [Ratio] N [facility] 13:06-0 ([id number]) 400 Ethanol [Mass/Vol] mg/dL Negative <10 mg/dL PENDING 04-23 2-2 [facility] 020 N [facility] 13:06-0 ([id number]) 400 Glucose [Mass/Vol] 101 mg/dL Negative 70-105 PENDING 04-23 2-2 mg/dL [facility] 020 N [facility] 13:06-0 ([id number]) 400 Hematocrit (Bld) 47 % Negative 40-54 % PENDING [Volume fraction] [facility] 020 N [facility] 13:06-0 ([id number]) 400 Hemoglobin (Bld) 15.8 g/dL Negative 13.3-17.7 PENDING [Mass/Vol] g/dL [facility] 020 N [facility] 13:06-0 ([id number]) 400 INR Coag (Platelet 0.9 Negative 0.8-1.4 PENDING 04-23 2-2 poor plasma or [facility] 020 blood) [Relative N [facility] 13:06-0 time] ([id number]) 400 Lymphocytes (Bld) 1.9 10*3/uL Negative 1.0-4.0 PENDING -2 [#/Vol] 10*3 [facility] 020 N [facility] 13:06-0 ([id number]) 400 Lymphocytes/100 WBC 15 % Negative 12-44 % PENDING -2 (Bld) [facility] 020 [facility] 13:06-0 ([id number]) 400 Magnesium [Mass/Vol] 2.3 mg/dL Negative 1.6-2.4 PENDING -2 mg/dL [facility] 020 [facility] 13:06-0 ([id number]) 400 MCH (RBC) [Entitic 30 pg Negative 25-34 pg PENDING -1 2-2 mass] [facility] 020 [facility] 13:06-0 ([id number]) 400 MCHC (RBC) 33 g/dL Negative 32-36 g/dL PENDING 2 [Mass/Vol] [facility] 020 [facility] 13:06-0 ([id number]) 400 MCV (RBC) [Entitic 91 Negative 80-99 PENDING - 2-2 vol] [foz_us] [facility] 020 [facility] 13:06-0 ([id number]) 400 Monocytes (Bld) 1.2 10*3/uL High 0.0-1.0 PENDING 05-04 [#/Vol] 10*3 [facility] 020 [facility] 13:06-0 ([id number]) 400 Monocytes/100 WBC 9 % Negative 0-12 % PENDING 05-04 (Bld) [facility] 020 [facility] 13:06-0 ([id number]) 400 Myoglobin [Mass/Vol] 21.8 ng/mL Negative 10.0-92.0 PENDING 0 -12-2 ng/mL [facility] 020 [facility] 13:06-0 ([id number]) 400 Natriuretic peptide 46.3 pg/mL Invalid <100.0 PENDING -2 B (Bld) [Mass/Vol] Interpreta pg/mL [facility] 020 tion Code [facility] 13:06-0 ([id number]) 400 Neutrophils (Bld) 9.4 10*3/uL High 1.8-7.8 PENDING 2 [#/Vol] 10*3 [facility] 020 N [facility] 13:06-0 ([id number]) 400 Neutrophils/100 WBC 74 % Negative 42-75 % PENDING 09-24 (Bld) [facility] 020 N [facility] 13:06-0 ([id number]) 400 Platelet mean volume 10.2 Negative 7.4-10.4 PENDING (Bld) [Entitic vol] [foz_us] [facility] 020 N [facility] 13:06-0 ([id number]) 400 Platelets (Bld) 309 10*3/uL Negative 130-400 PENDING 05-04 [#/Vol] 10*3/uL [facility] 020 N [facility] 13:06-0 ([id number]) 400 Potassium 4.4 mmol/L Negative 3.6-5.0 PENDING [Moles/Vol] mmol/L [facility] 020 N [facility] 13:06-0 ([id number]) 400 Protein [Mass/Vol] 7.2 g/dL Negative 6.4-8.2 PENDING - 2-2 g/dL [facility] 020 N [facility] 13:06-0 ([id number]) 400 PT Coag (PPP) [Time] 12.7 s Negative 12.2-14.7 PENDING s [facility] 020 N [facility] 13:06-0 ([id number]) 400 RBC (Bld) [#/Vol] 5.19 10*6/uL Negative 4.35-5.85 PENDING 10*6/uL [facility] 020 N [facility] 13:06-0 ([id number]) 400 Sodium [Moles/Vol] 141 mmol/L Negative 135-145 PENDING 2 mmol/L [facility] 020 N [facility] 13:06-0 (12920) 400 Troponin I.cardiac ng/mL Negative <0.028 PENDING - 2-2 [Mass/Vol] ng/mL [facility] 020 N [facility] 13:06-0 (90931) 400 Urea nitrogen 16 mg/dL Negative 7-18 mg/dL PENDING [Mass/Vol] [facility] 020 N [facility] 13:06-0 ([id number]) 400 Urea 18 mg/mg Invalid PENDING 2 nitrogen/Creatinine Interpreta [facility] 020 [Mass ratio] tion Code N S 13:06-0 ([id number]) 400 WBC (Bld) [#/Vol] 12.6 10*3/uL High 4.3-11.0 PENDING 10*3/uL [facility] 020 N S 13:06-0 (21461) 400 wbc auto (bld) [#/vol] on 2018-06-17 WBC (Bld) [#/Vol] 11.3 10*3/uL High 4.3-11.0 Via [facility] ([id number]) urea nitrogen/creatinine [mass ratio] on 2018-06-17 Urea 19 mg/mg Via nitrogen/Creatinine [facility] [Mass ratio] [facility] ([id number]) urea nitrogen [mass/vol] on 2018-06-17 Urea nitrogen 17 mg/dL 7-18 Via [Mass/Vol] [facility] ([id number]) sodium [moles/vol] on 2018-06-17 Sodium [Moles/Vol] 138 mmol/L 135-145 Via [facility] (49658) rbc auto (bld) [#/vol] on 2018-06-17 RBC (Bld) [#/Vol] 5.20 10*6/uL 4.35-5.85 Via [facility] (28375) potassium [moles/vol] on 2018-06-17 Potassium 3.9 mmol/L 3.6-5.0 Via [Moles/Vol] [facility] (22346) platelets auto (bld) [#/vol] on 2018-06-17 Platelets (Bld) 248 10*3/uL 130-400 Via [#/Vol] [facility] (33204) platelet mean volume auto (bld) [entitic vol] on 2018-06-17 Platelet mean volume 9.9 fL 7.4-10.4 Via (Bld) [Entitic vol] [facility] (27742) mcv auto (rbc) [entitic vol] on 2018-06-17 MCV (RBC) [Entitic 89 fL 80-99 Via vol] [facility] (56751) mchc auto (rbc) [mass/vol] on 2018-06-17 MCHC (RBC) 35 g/dL 32-36 Via [Mass/Vol] [facility] ([id number]) mch auto (rbc) [entitic mass] on 2018-06-17 MCH (RBC) [Entitic 31 pg 25-34 Via mass] [facility] (53574) hemoglobin (bldv) [mass/vol] on 2018-06-17 Hemoglobin (Bld) 16.0 g/dL 13.3-17.7 Via [Mass/Vol] [facility] rg ([id number]) hematocrit (bld) [volume fraction] on 2018-06-17 Hematocrit (Bld) 46 % 40-54 Via [Volume fraction] [facility] (18632) glucose [mass/vol] on 2018-06-17 Glucose [Mass/Vol] 98 mg/dL 70-105 Via [facility] (58919) erythrocyte distribution width auto (rbc) [ratio] on 2018-06-17 Erythrocyte 13.2 % 10.0-14.5 Via distribution width Merlene (RBC) [Ratio] [facility] (70367) creatinine and glomerular filtration rate.predicted panel (s/p/bld) on 2018-06-17 GFR/1.73 sq Via M.predicted among [facility] [place] non-blacks MDRD Hospita (S/P/Bld) [Vol l rate/Area] [facility] ([id number]) creatinine [mass/vol] on 2018-06-17 Creatinine 0.90 mg/dL 0.60-1.30 Via [Mass/Vol] [facility] rg (32457) chloride [moles/vol] on 2018-06-17 Chloride [Moles/Vol] 107 mmol/L 98-107 Via [facility] (11682) carbon dioxide on 2018-06-17 CO2 [Moles/Vol] 21 mmol/L 21-32 Via [facility] (64152) calcium [mass/vol] on 2018-06-17 Calcium [Mass/Vol] 9.5 mg/dL 8.5-10.1 Via [facility] rg (60035) anion gap [moles/vol] on 2018-06-17 Anion gap 10 mmol/L 5-14 Via [Moles/Vol] [facility] (98533) troponin i.cardiac [mass/vol] on 2018-06-16 Troponin I.cardiac <0.30 Via [Mass/Vol] [facility] (20135) triglyceride [mass/vol] on 2018-06-16 Triglyceride 115 mg/dL <150 Via [Mass/Vol] [facility] (56160) protein [mass/vol] on 2018-06-16 Protein [Mass/Vol] 6.8 g/dL 6.4-8.2 Via [facility] (58045) neutrophils/100 wbc auto (bld) on 2018-06-16 Neutrophils/100 WBC 51 % 42-75 Via (Bld) [facility] (03576) neutrophils auto (bld) [#/vol] on 2018-06-16 Neutrophils (Bld) 4.6 10*3/uL 1.8-7.8 Via [#/Vol] [facility] ([id number]) myoglobin [mass/vol] on 2018-06-16 Myoglobin [Mass/Vol] 37.9 ng/mL 10.0-92.0 Via [facility] (97887) mrsa isol org specific cx ql (unsp spec) on 2018-06-16 MRSA isol Org MRSA not isolated Via specific cx Ql (Unsp [place]lene spec) [facility] ([id number]) monocytes/100 wbc (bld) on 2018-06-16 Monocytes/100 WBC 12 % 0-12 Via (Bld) [facility] (09686) monocytes auto (bld) [#/vol] on 2018-06-16 Monocytes (Bld) 1.1 10*3/uL High 0.0-1.0 Via [#/Vol] [facility] (26896) lymphocytes/100 wbc auto (bld) on 2018-06-16 Lymphocytes/100 WBC 32 % 12-44 Via (Bld) [facility] (99177) lymphocytes auto (bld) [#/vol] on 2018-06-16 Lymphocytes (Bld) 2.9 10*3/uL 1.0-4.0 Via [#/Vol] [facility] (90934) eosinophils/100 wbc auto (bld) on 2018-06-16 Eosinophils/100 WBC 4 % 0-10 Via (Bld) [facility] (72770) eosinophils auto (bld) [#/vol] on 2018-06-16 Eosinophils (Bld) 0.3 10*3/uL 0.0-0.3 Via [#/Vol] [facility] (27215) ck [catalytic activity/vol] on 2018-06-16 CK [Catalytic 64 U/L 30-200 Via activity/Vol] [facility] (78789) cholesterol in vldl [mass/vol] on 2018-06-16 Cholesterol in VLDL 23 mg/dL 5-40 Via [Mass/Vol] [facility] (03558) cholesterol in ldl direct assay [mass/vol] on 2018-06-16 Cholesterol in LDL 223 mg/dL High 1-129 Via [Mass/Vol] [facility] (39905) cholesterol in hdl [mass/vol] on 2018-06-16 Cholesterol in HDL 47 mg/dL 40-60 Via [Mass/Vol] [facility] (42902) cholesterol [mass/vol] on 2018-06-16 Cholesterol 279 mg/dL High < 200 Via [Mass/Vol] [facility] (95413) calcium measurement corrected for albumin on 2018-06-16 Albumin [Mass/Vol] 9.7 g/dL 8.5-10.1 Via [facility] (29467) bilirubin [mass/vol] on 2018-06-16 Bilirubin [Mass/Vol] 1.0 mg/dL 0.1-1.0 Via [facility] (11936) basophils/100 wbc auto (bld) on 2018-06-16 Basophils/100 WBC 1 % 0-10 Via (Bld) [facility] (53100) basophils auto (bld) [#/vol] on 2018-06-16 Basophils (Bld) 0.1 10*3/uL 0.0-0.1 Via [#/Vol] [facility] (23794) ast [catalytic activity/vol] on 2018-06-16 AST [Catalytic 21 U/L 5-34 Via activity/Vol] [facility] () alt [catalytic activity/vol] on 2018-06-16 ALT [Catalytic 19 U/L 0-55 Via activity/Vol] [facility] ([id number]) alp [catalytic activity/vol] on 2018-06-16 ALP [Catalytic 50 U/L 40-136 Via activity/Vol] [facility] (87132) albumin [mass/vol] on 2018-06-16 Albumin [Mass/Vol] 4.1 g/dL 3.2-4.5 Via [facility] () troponin i.cardiac [mass/vol] on 2018-06-15 Troponin I.cardiac <0.30 Via [Mass/Vol] [facility] () pt coag (ppp) [time] on 2018-06-15 PT Coag (PPP) [Time] 13.7 s 12.2-14.7 Via [facility] () magnesium on 2018-06-15 Magnesium [Mass/Vol] 2.3 mg/dL 1.8-2.4 Via [facility] () inr coag (platelet poor plasma or blood) [relative time] on 2018-06-15 INR Coag (Platelet 1.1 0.8-1.4 Via poor plasma or [facility] [place] blood) [Relative Hospita time] [facility] () fibrin d-dimer feu (ppp) [mass/vol] on 2018-06-15 Fibrin D-dimer FEU 0.32 0.00-0.49 Via (PPP) [Mass/Vol] [facility] () aptt coag (ppp) [time] on 2018-06-15 aPTT Coag (PPP) 32 s 24-35 Via [Time] [facility] ([id number]) Social History No Information Vital Signs The data below is from unstructured sources Vital Response Date/Time Temperature (Fahrenheit) 96.4 degree s F (97.6 - 99.5) 10/15/2015 5:04pm Temperature (Calculated Celsius) 35. 83570 degrees C (36.4 - 37.5) 10/15/2015 11:55am [...] inches 10/15/2015 7:00am Height (Calculated Centimeters) 177. 424091 cm 10/15/2015 7:00am Weight (Pounds) 175 pounds 10/15/2015 7:00am Weight (Calculated Grams) 26769.666 gm 10/15/2015 7:00am Weight (Calculated Kilograms) 79.378 666 kilograms 10/15/2015 7:00am Calculated BMI 29.12 7:00am Vital Response Date/Time Temperature (Fahrenheit) 97.5 degree s F (97.6 - 99.5) 02/10/2016 1:38pm Temperature (Calculated Celsius) 36. 35422 degrees C (36.4 - 37.5) 02/10/2016 1:38pm [...] inches 02/10/2016 1:38pm Height (Calculated Centimeters) 177. 704933 cm 02/10/2016 1:38pm Weight (Pounds) 180 pounds 02/10/2016 1:38pm Weight (Calculated Kilograms) 81.646 627 kilograms 02/10/2016 1:38pm Height 5 ft 10 in Weight 180 lb Body Mass Index 25.8 kg/m^2 Vital Response Date/Time Temperature (Fahrenheit) 98.2 degree s F (97.6 - 99.5) 06/17/2018 8:00am Temperature (Calculated Celsius) 36. 28447 degrees C (36.4 - 37.5) 06/17/2018 8:00am [...] inches 06/15/2018 6:53pm Height (Calculated Centimeters) 177. 592764 cm 06/15/2018 6:53pm Height Method Stated 4:20pm Weight (Pounds) 168 pounds 06/15/2018 6:53pm Weight (Ounces) 8.0 oz 0 06/15/2018 6:53pm Weight (Calculated Grams) 10956.32 gm 06/15/2018 6:53pm Weight (Calculated Kilograms) 76.430 315 kilograms 06/15/2018 6:53pm Calculated BMI 24.2 05/25 6:53pm Weight Method Stated 4:20pm Weight Measurement Method [facility] 06/15/2018 6:53pm Capillary Refill Capillary Refill Less Than 3 Seconds 06/16/2018 7:00pm Vital Response Date/Time Temperature (Fahrenheit) 98.2 degree s F (97.6 - 99.5) 06/17/2018 8:00am Temperature (Calculated Celsius) 36. 90487 degrees C (36.4 - 37.5) 06/17/2018 8:00am [...] inches 06/15/2018 6:53pm Height (Calculated Centimeters) 177. 055215 cm 06/15/2018 6:53pm Height Method Stated 4:20pm Weight (Pounds) 168 pounds 06/15/2018 6:53pm Weight (Ounces) 8.0 oz 0 06/15/2018 6:53pm Weight (Calculated Grams) 72865.32 gm 06/15/2018 6:53pm Weight (Calculated Kilograms) 76.430 315 kilograms 06/15/2018 6:53pm Calculated BMI 24.2 05/25 6:53pm Weight Method Stated 4:20pm Weight Measurement Method Built in [facility] 06/15/2018 6:53pm Capillary Refill Capillary Refill Less [...] This clinical document has been generated using [employer] software that has been certified by the Office of the National Coordinator for Health Information Technology (ONC 15.99.04.3023.Diam.31.00.0.829730) and the National Committee for Power Plant Operator (NCQA, as an eMeasure certified technology). FOR [...] BASED ON T HE PRIMARY CLINICAL RECORDS. [employer] provides no warranty or guara ntee of the accuracy or completeness of information in this document.The followi ng information is based on time limited clinical information
--- OUTSIDE RECORDS SUMMARY | 2020-05-04 19:04 | XMS REPORT | Continuity of Care Document ---
Author Organization Unknown Address Unknown Phone Unavailable Allergies Active Description Code Type Severity Reaction Onset Reported/Identified Relationship to Patient Clinical Status Yes ciprofloxacin [id number] Dax g Allergy Mild RASH 12/26/2013 Yes aspirin [id number] Drug Allergy Unknown N/A 02/10/2016 Yes ketorolac [id number] Drug Allergy Unknown N/A 02/10/2016 Yes naproxen [id number] Drug Allergy Unknown N/A 02/10/2016 Yes Penicillins [id number] Drug Aller gy Unknown N/A 02/10/2016 Yes Sulfa (Sulfonamide Antibiotics) [id number] Drug Allergy Unknown N/A 016 Yes [...] MD Ot 414.0 1 CORONARY ATHEROSCLEROSIS OF [place] CORON 12/20/2013 RENATA ALFORD MD Ot 530.8 [...] RENATA A Ot 592.1 12/01/2015 PRASHANTH DIAZ, RNEATA A Ot V72.8 4 12/01/2015 PRASHANTH DIAZ, [...] Ot N20.9 URINARY CALCULUS, UNSPECIFIED 01/29/2016 PRASHANTH DIZA, RENATA A Ot N20.9 02/10/2016 ZAPATA DO, JONATHAN L Ot R07.8 1 PLEURODYNIA 02/10/2016 PRASHANTH DIAZ, RENATA A Ot N20.9 URINARY CALCULUS, UNSPECIFIED 02/11/2016 ZAPATA DO, JONATHAN L Ot R07.8 1 PLEURODYNIA 10/20/2017 KERRY DIAZ, TE Bailey Ot G45. 9 TRANSIENT CEREBRAL ISCHEMIC ATTACK, UNSP 10/20/2017 KERRY DIAZ, TE Bailey Ot I25. 10 ATHSCL HEART DISEASE OF [place] CORONARY 10/20/2017 KERRY DIAZ, TE Bailey Ot [...] Peraza Final I25.10 Atherosclerotic heart disease of [place] coronary artery without angina pect 12/21/2017 Magan Peraza Final M47.812 Spondylosis without myelopathy or radiculopathy, cervi gabino region 12/21/2017 Magan Peraza Final R29.898 Other symptoms and signs involving the musculoskeletal system 12/21/2017 Magan Peraza Final Z53.21 Procedure and treatment not carried out due to patient leaving prior to emily 12/21/2017 Magan Peraza Final Z79.899 Other senior living (current) drug therapy 12/21/2017 Magan Peraza Final [...] Hollis Ot N20.0 CALCULUS OF KIDNEY 12/23/2017 PRASHNATH DIAZ, RENATA Hollis Ot Z01.8 18 ENCOUNTER [...] Ot I25. 10 ATHSCL HEART DISEASE OF [place] CORONARY 12/23/2017 TE PAYNE MD Ot R06. [...] MD, Ot I25.110 ATHSCL HEART DISEASE OF [place] COR ART W 06/17/2018 MYA BRAND MD [...] MD Ot I25.110 ATHSCL HEART DISEASE OF [place] COR ART W 06/23/2018 MYA BRAND MD [...] MD Ot I25.110 ATHSCL HEART DISEASE OF [place] COR ART W 06/23/2018 MYA BRAND MD [...] MD Ot I25.110 ATHSCL HEART DISEASE OF [place] COR ART W 06/23/2018 MYA BRAND MD [...] MD Ot I25.110 ATHSCL HEART DISEASE OF [place] COR ART W 06/27/2018 MYA BRAND MD, [...] MD, Ot I25.110 ATHSCL HEART DISEASE OF [place] COR ART W 06/30/2018 MYA BRAND MD, [...] plasma calcium measurement (mass/volume) 9.5 mg/dL 8.5-10.1 Comprehensive metabolic panel - 05/04/20 17:06 Serum or plasma sodium measurement (moles/volume) 141 mmol/L 135-145 Serum or plasma potassium measurement (moles/volume) 4.4 mmol/L 3.6-5.0 Serum or plasma chloride measurement (moles/volume) 106 mmol/L 98-107 Carbon dioxide 23 mmol/L 21-32 Serum or plasma anion gap determination (moles/volume) 12 mmol/L 5-14 Serum or plasma urea nitrogen measurement (mass/volume ) 16 mg/dL 7-18 Serum or plasma creatinine measurement (mass/volume) 0.91 mg/dL 0.60-1.30 Serum or plasma urea nitrogen/creatinine mass ratio 18 NRG Serum or plasma creatinine measurement w ith calculation of estimated glomerular filtration rate > NRG Serum or plasma glucose measurement (mass/volume) 101 mg/dL 70-105 Serum or plasma calcium measurement (mass/volume) 9.6 mg/dL 8.5-10.1 Serum or plasma total bilirubin measurement (mass/volu me) 0.9 mg/dL 0.1-1.0 Serum or plasma alkaline phosphatase lexus surement (enzymatic activity/volume) 74 U/L 40-136 Serum or plasma aspartate aminotransfera se measurement (enzymatic activity/volume) 127 U/L 5-34 Serum or plasma alanine aminotransferase measurement (enzymatic activity/volume) 95 U/L 0-55 Serum or plasma protein measurement (mass/volume) 7.2 g/dL 6.4-8.2 Serum or plasma albumin measurement (mass/volume) 4.2 g/dL 3.2-4.5 CALCIUM CORRECTED 9.4 mg/dL 8.5-10.1 PT panel in platelet poor plasma by coag ulation assay - 05/04/20 17:06 Prothrombin time (PT) in platelet poor plasma by coagu lation assay 12.7 s 12.2-14.7 INR in platelet poor plasma or blood by coagulation as say 0.9 0.8-1.4 Activated partial thromboplastin time (a PTT) in platelet poor plasma bycoagulation assay - 05/04/20 17:06 Activated partial thromboplastin time (a PTT) in platelet poor plasma bycoagulation assay 31 s 24-35 Magnesium - 05/04/20 17:06 Magnesium 2.3 mg/dL 1.6-2.4 Complete blood count (CBC) with automate d white blood cell (WBC) differential - 05/04/20 17:06 Blood leukocytes automated count (number/volume) 12.6 10*3/uL 4.3-11.0 Blood erythrocytes automated count (number/volume) 5.19 10*6/uL 4.35-5.85 Venous blood hemoglobin measurement (mass/volume) 15.8 g/dL 13.3-17.7 Blood hematocrit (volume fraction) 47 % 40-54 Automated erythrocyte mean corpuscular volume 91 [ foz_us] 80-99 Automated erythrocyte mean corpuscular h emoglobin (mass per erythrocyte) 30 pg 25-34 Automated erythrocyte mean corpuscular h emoglobin concentration measurement (mass/volume) 33 g/dL 32-36 Automated erythrocyte distribution width ratio 13. 2 % 10.0- 14.5 Automated blood platelet count (count/volume) 309 10*3/uL 130-400 Automated blood platelet mean volume measurement 10.2 [foz_us] 7.4-10.4 Automated blood neutrophils/100 leukocytes 74 % 42-75 Automated blood lymphocytes/100 leukocytes 15 % 12-44 Blood monocytes/100 leukocytes 9 % 0-12 Automated blood eosinophils/100 leukocytes 1 % 0-10 Automated blood basophils/100 leukocytes 0 % 0-10 Blood neutrophils automated count (number/volume) 9.4 10*3 1.8-7.8 Blood lymphocytes automated count (number/volume) 1.9 10*3 1.0-4.0 Blood monocytes automated count (number/volume) 1. 2 10*3 0.0-1.0 Automated eosinophil count 0.1 10*3/uL 0 .0-0.3 Automated blood basophil count (count/volume) 0.0 10*3/uL 0.0-0.1 Myoglobin, serum - 05/04/20 17:06 Myoglobin, serum 21.8 ng/mL 10.0-92.0 Serum or plasma troponin i.cardiac measu rement (mass/volume) - 05/04/20 17:06 Serum or plasma troponin i.cardiac measurement (mass/v olume) < ng/mL <0.028 Serum or plasma lithium measurement (mol es/volume) - 05/04/20 17:06 BNP PT 46.3 pg/mL <100.0 Serum or plasma ethanol measurement (mas s/volume) - 05/04/20 17:06 Serum or plasma ethanol measurement (mass/volume) < mg/dL <10 Radiology Report from [id number] on 12/20 11:12:00 Reason For Examleft sided [...] both ICA are normal. The A1 and K1hzliqdzr of both ERICK, M1, M2, and M3 trifurcation vessels of both MCA arenormal. The right vertebral artery is slightly dominant when compared to theleft. Both vertebral a rteries are widely patent to the skull base. The PICA,basilar artery, AICA, SCA, and sap specialist are normal.Lung apices are clear. Superior mediastinum is normal. The parapharyngeal andparaspinous soft tissues are unremarkable. Mild cervical spondylosis seen.IMPRESSION: Unremarkable CTA head and neck. There is some minimal bilateralcarotid bifurcation disease but no evidence of hemodynamically significantstenosis. No intracranial large vessel occlusion identified.Tech Comments: IV Contrast Name: OMNIPAQUE 350Contrast amount in ml's: 100Dictated on workstation:[id number] FINAL DICTATED BY: ANDREW LARKIN V MDICTATED DT/TM: 12/19/2017 4:23 PMSIGNED BY: ANDREW LARKIN V MDSIGNED (ELECTRONIC SIGNATURE): 12/19/2017 5:18 PMTECHNOLOGIST: DERIC GARZON LRT, ARRT Encounters ACCT No. Visit Date/Time Discharge Status Pt. Type Provider Facility Loc./Unit Complaint [id number] 12/19/2017 16:22:00 018 23:59:59 CLS Emergency [facility] ED stroke symptoms [id number] 12/19/2017 15:39:00 018 19:16:00 DIS Outpatient Magan Peraza [facility] ED Hold TIA [id number] 12/20/2017 05:20:15 Document Registration [id number] 06/19/2018 11:00:00 018 23:59:59 CLS Preadmit TE PAYNE MD [facility] CARD R07.89 ANTERIOR CHEST W ALL PAIN [id number] 06/15/2018 18:25:00 018 13:58:00 DIS Outpatient MYA BRAND MD [facility] CATH CHEST PAIN;DEPRESSION [id number] 11/02/2017 11:30:00 018 23:59:59 CLS Preadmit TE PAYNE MD [facility] CARD CAD,SOB [id number] 10/06/2017 11:52:00 017 23:59:59 CLS Outpatient TE PAYNE MD [facility] CARD CAD I25.10 [id number] 02/10/2016 13:38:00 016 15:58:00 DIS Emergency ZAPATA JONATHAN TAYLOR [facility] ER CHEST PAIN [id number] 01/29/2016 00:11:00 016 23:59:59 CLS Preadmit RENATA ALFORD MD [facility] LAB STONES [id number] 11/25/2015 14:06:00 016 00:01:00 DIS Outpatient RENATA ALFORD MD [facility] LAB STONES [id number] 10/30/2015 14:29:00 Jamshid 23:59:59 CLS Outpatient RENATA ALFORD MD [facility] RAD LEFT RENAL STONE [id number] 10/15/2015 06:55:00 12:35:00 DIS Outpatient RENATA ALFORD MD [facility] SDC LEFT RENAL STONE [id number] 10/13/2015 05:46:00 23:59:59 CLS Outpatient RENATA ALFORD MD [facility] PREOP LEFT RENAL STONE [id number] 10/06/2015 14:01:00 23:59:59 CLS Outpatient RENATA ALFORD MD [facility] RAD LT RENAL STONE /FLANK P AIN [id number] 10/06/2015 12:37:00 23:59:59 CLS Outpatient RENATA ALFORD MD [facility] RAD STONE [id number] 12/26/2013 06:18:00 23:59:59 CLS Outpatient RENATA ALFORD MD [facility] LEFT URETERAL STONE [id number] 12/25/2013 13:53:00 23:59:59 CLS Outpatient RENATA ALFORD MD [facility] RAD STONE [id number] 12/25/2013 10:37:00 23:59:59 CLS Outpatient RENATA ALFORD MD [facility] PREOP LEFT URETERAL STONE [id number] 12/19/2013 13:26:00 14:25:00 DIS Outpatient RENATA ALFORD MD [facility] LEFT URETERAL STONE [id number] 05/04/2020 17:45:00 Document Registration [id number] 06/16/2018 11:22:00 Document Registration
--- NOTE | 2020-05-04 19:15 | NUR ---
REPORT GIVEN TO RACHELLE POLO FOR ROOM 419. RACHELLE STATES SHE WILL BE DOWN TO GET THE PATIENT IN A FEW MINUTES. PATIENT UPDATED OF ADMISSION PROCESS AND TIME LINE.
--- NOTE | 2020-05-04 19:40 | NUR ---
MARIO NUNEZ admitted to room 419-1, with an admitting diagnosis of CHEST PAIN , on 05/04/20 from [place] via WHEELCHAIR, accompanied by STAFF.MARIO NUNEZ introduced to surroundings, call light, bed controls, phone, TV, temperature control, lights, meal times, smoking policy, visitor policy, side rail policy, bathrooms and showers. Patient Rights given to patient in the handbook.MARIO NUNEZ verbalizes understanding that [facility] is not responsible for the loss or damage to any personal effects or valuables that are kept in the patients posession during their hospitalization. MARIO NUNEZ verbalizes understanding of Interdisciplinary Patient Education. Patient and/or family were informed about the Rapid Response Team and its purpose.
[2020-05-04 19:45] VITALS: BP 184/70
[2020-05-04 20:00] VITALS: BP 153/81
[2020-05-04 20:15] VITALS: BP 189/95
[2020-05-04] MEDS ORDERED: ALPRAZolam 0.5 MG (XANAX) TAB PO PRN (21:30)
[2020-05-04 22:30] VITALS: BP 130/79
[2020-05-04 23:20] VITALS: BP 184/70
[2020-05-05] VITALS (13 sets, daily range): BP systolic 104–159; BP diastolic 67–85
[2020-05-05 06:12] LABS: TRIGLYCERIDES 155 MG/DL (<150); VLDL CHOLESTEROL 31 MG/DL (5-40)
[2020-05-05 06:17] LABS: CHOLESTEROL 268 MG/DL (< 200)
[2020-05-05 06:18] LABS: HDL CHOLESTEROL 51 MG/DL (40-60)
[2020-05-05] MEDS ORDERED: CLOPIDOGREL 75 MG (PLAVIX) TABLET PO SCH (09:00)
--- NOTE | 2020-05-05 11:12 | History & Physical-Hospitalist ---
History of Present Illness HPI/Chief Complaint Pt is a 64yoCM with a PMH of CAD s/p stenting who presented to the ER due to chest pain. He states he had to drive to [place] to help a friend when his car broken down. He had to walk roughly 6 miles to get help for that. This was 4-5 days ago and his chest pain started then. It continued to worsen and he finally took his nitro yesterday. He said it helped some but he had to take 4 nitro to make it go away completely. This prompted him to seek evaluation in the ER. Troponin was negative in the ER and he was admitted for ACS rule out. His troponins have been negative and he has had no further chest pain. Source: patient Date Seen 05/05/20 Time Seen by a Provider: 11:01 Attending Physician Mitzy Howard MD PCP Jabier Savage DO Referring Physician Date of Admission May 04, 2020 at 18:44 Home Medications & Allergies Home Medications Reviewed patient Home Medication Reconciliation performed by pharmacy medication reconciliations survey and mapping technician and/or nursing. Patients Allergies have been reviewed. Allergies Allergies Coded Allergies ciprofloxacin (Unverified Allergy, Mild, RASH, 12/26/13) PT STATES HE CAN TAKE LEVAQUIN WITHOUT PROBLEM Penicillins (Verified Allergy, Unknown, 02/10/16) Sulfa (Sulfonamide Antibiotics) (Verified Allergy, Unknown, 02/10/16) ketorolac (Verified Allergy, Unknown, 02/10/16) naproxen (Verified Allergy, Unknown, 02/10/16) Past Yngdacs-Hbzbvm-Adlocj Hx Past Med/Social Hx: Reviewed Nursing Past Med/Soc Hx Patient Social History Alcohol Use: Denies Use Recreational Drug Use: Yes Drug of Choice: marijuana 2nd Hand Smoke Exposure: Yes Recent Foreign Travel: No Contact w/other who traveled: No Recent Hopitalizations: No Recent Infectious Disease Expo: No Seasonal Allergies Seasonal Allergies: No Past Medical History Surgeries: Abdominal, Coronary Stent Cardiac: Coronary Artery Disease, Heart Attack Reproductive: No Genitourinary: Kidney Stones History of Blood Disorders: No Adverse Reaction to Blood Roberto: No Family History Abdominal aortic aneurysm G8 BROTHER Alcoholism 19 FATHER Cardiovascular disease 19 MOTHER G8 BROTHER Cataracts PATERNAL GRANDFATHER Diabetes mellitus 19 MOTHER Gastroenteritis 19 MOTHER Hypercholesterolemia 19 MOTHER Hypertension 19 MOTHER G8 BROTHER Myocardial infarction 19 MOTHER G8 BROTHER Neoplasm 19 FATHER (LUNG CANCER) No Pertinent Family Hx Review of Systems Constitutional: No chills, No fever Respiratory: No cough, No dyspnea on exertion Cardiovascular: see HPI, chest pain Gastrointestinal: no symptoms reported Physical Exam Physical Exam Vital Signs Vital Signs - First Documented 05/04/20 05/04/20 17:02 17:04 Temp 36.7 Pulse 61 Resp 20 B/P (MAP) 163/94 (117) Pulse Ox 98 O2 Delivery Room Air Capillary Refill : Less Than 3 Seconds Height, Weight, BMI Height: 5'10.00" Weight: 168lbs. 8.0oz. 76.442796wh; 22.96 BMI Method:Stated General Appearance: No Apparent Distress, WD/WN HEENT: PERRL/EOMI, Moist Mucous Membranes Neck: Normal Inspection, Supple Respiratory: Lungs Clear, No Accessory Muscle Use, No Respiratory Distress Cardiovascular: Regular Rate, Rhythm, No Murmur Gastrointestinal: Normal Bowel Sounds, Non Tender, Soft Extremity: No Calf Tenderness, No Pedal Edema Neurologic/Psychiatric: Alert, Oriented x3, Normal Mood/Affect Skin: Normal Color, Warm/Dry Results Results/Procedures Labs Patient resulted labs reviewed. Imaging: Reviewed Imaging Report Imaging [facility] [place] NAME: MARIO NUNEZ [facility] REC#: [id number] PT STATUS: REG ER : 1955 PHYSICIAN: INDIRA LAGUNAS APRN ADMIT DATE: 05/04/20/ER Signed Date of Exam:05/04/20 CHEST 1 VIEW, AP/PA ONLY INDICATION: Chest pain. COMPARISON: Prior examination from 06/15/2019. EXAMINATION: Single view of the chest was obtained. FINDINGS: The heart size, mediastinal configuration and pulmonary vascularity are within normal limits. There is no pleural effusion, pneumothorax or pneumonia. The osseous structures are unremarkable. IMPRESSION: No acute cardiopulmonary abnormality. Dictated by: Dictated on workstation # [id number] Dict: 05/04/201754 Trans: 05/04/201814 [facility] [id number] Interpreted by: JOAQUÍN GAN MD Electronically signed by: JOAQUÍN GAN MD 05/04/205 Assessment/Plan Admission Diagnosis Chest pain Admission Status: Observation Assessment and Plan Chest pain CAD s/p stents troponin negative x3 Continue monitor on telemetry Cardiology consulted, appreciate recs Continue home Plavix Underwent cardiac cath with mo interventions needed just mild instent restenosis Discharged home in stable condition Diagnosis/Problems Diagnosis/Problems (1) CAD (coronary artery disease) Qualifiers: Coronary Disease-Associated Artery/Lesion type: tribe artery [place] vs. transplanted heart: tribe heart Associated angina: with stable angina Qualified Codes: I25.118 - Atherosclerotic heart disease of [place] coronary artery with other forms of angina pectoris (2) Chest pain Qualifiers: Chest pain type: chest pain due to myocardial ischemia Ischemic chest pain type: stable angina pectoris Qualified Codes: I20.8 - Other forms of angina pectoris Clinical Quality Measures AMI/AHF: ASA po Prior to arrival: Yes (baby aspirin this morning) DVT/VTE Risk/Contraindication: Risk Factor Score Per Nursin RFS Level Per Nursing on Admit: 4+=Very High MYA BRAND MD May 05, 2020 11:12
[2020-05-05] MEDS ORDERED: ASPI-586 PO (11:33)
[2020-05-05] MEDS ORDERED: TRAM50TA3 PO (11:47)
--- NOTE | 2020-05-05 11:50 | NUR ---
I SPOKE WITH PATIENT AND WENT THROUGH THE EXTERNAL MED HISTORY TO COMPLETE THE MED REC. ALL MEDICATIONS LINED UP WITH THE MEDS LISTED IN THE EXTERNAL MED HISTORY. OTC: ASPIRIN 81MG
[2020-05-05] MEDS ORDERED: NS IV 1000 ML 1,000 ML ONE (12:51)
[2020-05-05] MEDS ORDERED: MIDAZOLAM 5 MG/5 ML (VERSED) VIAL ONE (12:51)
[2020-05-05] MEDS ORDERED: HEParin (CATH LAB) 2,000 ML IV ONE (12:51)
[2020-05-05] MEDS ORDERED: fentaNYL INJECTION 100 MCG/2 ML AMP ONE (12:51)
[2020-05-05] MEDS ORDERED: LIDOCAINE 1% INJ 20 ML 20 ML VIAL ONE (12:51)
--- NOTE | 2020-05-05 13:07 | NUR ---
TO HEART CATH PER BED.
--- NOTE | 2020-05-05 13:53 | Consultation-Cardiology ---
HPI-Cardiology Cardiology Consultation: Date of Consultation 05/05/20 Date of Admission Attending Physician Mitzy Howard MD Admitting Physician Jabier Savage DO Consulting Physician Zandra CONTRERAS MD HPI: Time Seen by a Provider: 12:45 Chief Complaint: Chest pain This is a 64-year-old gentleman with previous history of CAD, status post stenting in the LAD and ballooning off a diagonal artery by Dr. Mckinley in 2018. His been having chest discomfort for the last 4-5 days after significant exertion. However he had a prolonged episode of chest pain on 05/04/2020 for which she had to take nitroglycerin. He took a total of 4 sublingual nitroglycerin before his discomfort went completely away. Substernal, no radiation, no associated cardiac symptoms, no exacerbating or relieving factors. Review of Systems-Cardiology Review of Systems Constitutional: As described under HPI; No As described under HPI, No no symptoms reported, No chills, No fever, No lightheadedness Eyes: No As described under HPI, No no symptoms reported, No blindness, No blurred vision, No contact lenses, No drainage, No decreased acuity, No foreign body sensation, No pain, No vision change Ears/Nose/Throat: No As described under HPI, No no symptoms reported, No chronic hearing loss, No ear discharge, No ear pain, No nasal drainage, No ulcerations Respiratory: No no symptoms reported; As described under HPI; No As described under HPI, No cough, No orthopnea, No shortness of breath, No SOB with excertion Cardiovascular: No no symptoms reported; As described under HPI; No As described under HPI; chest pain; No edema, No irregular heart rate, No lightheadedness, No palpitations Gastrointestinal: No no symptoms reported, No As described under HPI, No abdomen distended, No abdominal pain, No blood streaked bowels, No constipation, No diarrhea, No nausea, No vomiting, No stool coloration changes Genitourinary: No As described under HPI, No burning, No dysuria, No discharge, No frequency, No flank pain, No hematuria, No urgency Skin: No rash, No skin related problems, No ulcerations Psychiatric/Neurological: No anxiety, No depression, No seizure, No focal weakness, No syncope Hematologic: No bleeding abnormalities WTG-[id number]-Nfssve Hx Patient Social History Alcohol Use: Denies Use Recreational Drug Use: Yes Drug of Choice: marijuana Former smoker/When Quit: Jun 24, 2013 2nd Hand Smoke Exposure: Yes Recent Foreign Travel: No Recent Infectious Disease Expo: No Hospitalization with Isolation: Denies Past Medical History PMH As described under Assessment. Family Medical History Family History: Abdominal aortic aneurysm G8 BROTHER Alcoholism 19 FATHER Cardiovascular disease 19 MOTHER G8 BROTHER Cataracts PATERNAL GRANDFATHER Diabetes mellitus 19 MOTHER Gastroenteritis 19 MOTHER Hypercholesterolemia 19 MOTHER Hypertension 19 MOTHER G8 BROTHER Myocardial infarction 19 MOTHER G8 BROTHER Neoplasm 19 FATHER (LUNG CANCER) Allergies and Home Medications Allergies Coded Allergies: ciprofloxacin (Unverified Allergy, Mild, RASH, 12/26/13) PT STATES HE CAN TAKE LEVAQUIN WITHOUT PROBLEM Penicillins (Verified Allergy, Unknown, 02/10/16) Sulfa (Sulfonamide Antibiotics) (Verified Allergy, Unknown, 02/10/16) ketorolac (Verified Allergy, Unknown, 02/10/16) naproxen (Verified Allergy, Unknown, 02/10/16) Home Medications Alprazolam 0.5 Mg Tablet, 0.5 MG PO TID PRN for ANXIETY, (Reported) Aspirin 81 Mg Tablet.dr, 81 MG PO DAILY, (Reported) Clopidogrel Bisulfate 75 Mg Tablet, 75 MG PO DAILY, (Reported) Tramadol HCl 50 Mg Tablet, 50-100 MG PO QID PRN for PAIN-MODERATE, (Reported) Tramadol HCl 50 Mg Tablet, 50 MG PO DAILY, (Reported) Patient Home Medication List Home Medication List Reviewed: Yes Physical Exam-Cardiology Physical Exam Vital Signs/I&O 05/05/20 05/05/20 05/05/20 05/05/20 04:59 06:44 08:00 12:00 Temp 36.7 36.4 36.7 Pulse 47 54 58 61 Resp 18 16 16 B/P (MAP) 104/67 (79) 129/83 (98) 157/75 (102) Pulse Ox 97 96 99 O2 Delivery Room Air Room Air Room Air Capillary Refill : Less Than 3 Seconds Constitutional: appears stated age, AAO x 3; No apparent distress; well- developed, well-nourished HEENT: PERRL; No discharge; hearing is well preserved, oral hygience is good; No ulceration, No xanthelasmas are seen Neck: No carotid bruit; carotid pulses are 2 + bilaterally Respiratory: chest is bilaterally symmetric, lungs clear to auscultation Cardiovascular: regular rate-rhythm, S1 and S2; No diastolic murmur, No systolic murmur Gastrointestinal: soft, audible bowel sounds; No spleenomegaly Rectal: deferred Extremities: normal range of motion, non-tender, normal inspection; No clubbing, No cyanosis; no lower extremity edema bilateral; No significant edema Neurologic/Psychiatric: no motor/sensory deficits, alert, normal mood/affect, oriented x 3, power is 5/5 both on sides Skin: normal color, warm/dry; No rash, No ulcerations Data Review Labs Laboratory Tests 05/04/20 17:06: White Blood Count 12.6H, Red Blood Count 5.19, Hemoglobin 15.8, Hematocrit 47, Mean Corpuscular Volume 91, Mean Corpuscular Hemoglobin 30, Mean Corpuscular Hemoglobin Concent 33, Red Cell Distribution Width 13.2, Platelet Count 309, M lindsey Platelet Volume 10.2, Neutrophils (%) (Auto) 74, Lymphocytes (%) (Auto) 15, Monocytes (%) (Auto) 9, Eosinophils (%) (Auto) 1, Basophils (%) (Auto) 0, Neutrophils # (Auto) 9.4H, Lymphocytes # (Auto) 1.9, Monocytes # (Auto) 1.2H, Eosinophils # (Auto) 0.1, Basophils # (Auto) 0.0, Prothrombin Time 12.7, INR Comment 0.9, Activated Partial Thromboplast Time 31, Sodium Level 141, Potassium Level 4.4, Chloride Level 106, Carbon Dioxide Level 23, Anion Gap 12, Blood Urea Nitrogen 16, Creatinine 0.91, Estimat Glomerular Filtration Rate > 60, BUN/Creatinine Ratio 18, Glucose Level 101, Calcium Level 9.6, Corrected Calcium 9.4, Magnesium Level 2.3, Total Bilirubin 0.9, Aspartate Amino Transf (AST/SGOT) 127H, Alanine Aminotransferase (ALT/SGPT) 95H, Alkaline Phosphatase 74, Myoglobin 21.8, Troponin I < 0.028, B-Type Natriuretic Peptide 46.3, Total Protein 7.2, Albumin 4.2, Serum Alcohol < 10 05/04/20 22:43: Troponin I < 0.028 05/05/20 05:41: Troponin I < 0.028, Triglycerides Level 155H, Cholesterol Level 268H, LDL Cholesterol Direct 226H, VLDL Cholesterol 31, HDL Cholesterol 51 ECG Impression ECG Initial ECG Rhythm: Normal Sinus Initial ECG Impression: Nonspecific Changes A/P-Cardiology Assessment/Admission Diagnosis Prolonged episode of chest pain, Familial hyperlipidemia Plan Prolonged episode of chest pain which resolved with 4 sublingual nitroglycerin. Working diagnosis unstable angina. Negative serial troponin. Echocardiogram pending. I discussed at length with the patient and recommended coronary angiography since he had 2 stents placed in the LAD in [address] Mckinley. Informed consent was taken which included 1 percent risk of complications including vascular damage, damage to the heart and even . The patient accepted all risk and would like to proceed with coronary angiography today. Familial hyperlipidemia: Patient is intolerant to all statins. We'll start ezetimibe. He will likely be a candidate for PCSK9 inhibitors. I will defer to Dr. Mckinley as an outpatient. Thank you for your consultation. Please call me if you have any questions. Lina Contreras MD, FACP, FACC, FSCAI, FHRS, CCDS Interventional Cardiology Cardiac Electrophysiology Vascular Medicine and Endovascular Interventions Clinical Quality Measures AMI/AHF: ASA po Prior to arrival: Yes (baby aspirin this morning) DVT/VTE Risk/Contraindication: Risk Factor Score Per Nursin RFS Level Per Nursing on Admit: 4+=Very High Zandra CONTRERAS MD May 05, 2020 13:53
--- NOTE | 2020-05-05 13:54 | Cardiac Procedure Note-CS/ASA ---
Pre-Procedure Note Pre-Op Procedure Note H&P Reviewed The H&P was reviewed, patient examined and no changes noted. Date H&P Reviewed: May 05, 2020 Time H&P Reviewed: 13:00 Conscious Sedation Pre-Proced Time 13:00 ASA Score 2 For ASA 3 and 4: Consider anesthesia and medical clearance. Also, for patients with a history of failed moderate sedation consider anesthesia. Airway Lungs Heart ASA score ASA 1: a normal healthy patient ASA 2: a patient with a mild systemic disease (mid diabetes, controlled hypertension, obesity ASA 3: a patient with a severe systemic disease that limits activity (angina, COPD, prior Myocardial infarction) ASA 4: a patient with an incapacitating disease that is a constant threat to life (CHF, renal failure) ASA 5: a moribund patient not expected to survive 24 hrs. (ruptured aneurysm) ASA 6: a declared brain- patient whose organs are being harvested. For emergent operations, add the letter E after the classification Mallampati Classification Grade 1 Sedation Plan Analgesia, Amnesia, Plan communicated to team members, Discussed options with patient/fam, Discussed risks with patient/fam The patient is an appropriate candidate to undergo the planned procedure, sedation, and anesthesia. The patient immediately re-assessed prior to indication. Zandra MACE MD May 05, 2020 13:54
[2020-05-05] MEDS ORDERED: NS IV 1000 ML 1,000 ML IV SCH (13:57)
--- NOTE | 2020-05-05 13:57 | Coronary Angiography Report ---
Coronary Angiography Report DATE OF PROCEDURE: 05/05/20 INDICATION: Prolonged chest pain, history of CAD/PCI. PREOPERATIVE DIAGNOSIS: Prolonged chest pain, history of CAD/PCI. POSTOPERATIVE DIAGNOSIS: Mild in-stent restenosis of the LAD stents. No significant CAD. HISTORY: This is a 64-year-old gentleman who presented with a prolonged episode of chest pain which relieved with 4 sublingual nitroglycerin. He has previous history of 2 stents in the LAD by Dr. Mckinley in 2018. Therefore, the patient was scheduled for coronary angiography. PROCEDURES PERFORMED: 1.Coronary angiography. 2.Left heart catheterization. COMPLICATIONS: None. SPECIMENS: None. ESTIMATED BLOOD LOSS: 10 mL ANESTHESIA: Conscious sedation ANTICOAGULATION: None. CONTRAST: 30 ML. FLUOROSCOPY: 1.37 minutes. FLOUROSCOPY DOSE: 274 mgy. PROCEDURE DETAILS: The patient is a 64 male and was brought to the laborer rags after informed consent was taken. All the risks and complications were explained in detail; this included the risk of bleeding, vascular damage, stroke, [place] and even . The patient was draped and prepped in the usual sterile fashion. Abnormal Bj's test, therefore, Access was gained in the right femoral artery with a 6 Gabonese sheath. Coronary angiography and left heart catheterization was performed with JR4 and JL4 catheter. FINDINGS: 1.Left main: Patent. 2.LAD: Mild in-stent restenosis of proximal/mid LAD stent. First diagonal artery has pinching of the ostium, however HEIKE-3 flow. Second diagonal artery does not have any ostial disease. 3.Left circumflex artery: Luminal irregularities. 4.RCA: Mild mid disease. 5.Left heart catheterization: LV pressure 128/2 mmHg. LVEDP 7 mmHg. Normal LV function with no wall motion abnormalities. No gradient across the aortic valve. CONCLUSIONS: Mild in-stent restenosis of the proximal/mid LAD stent. Familial hyperlipidemia not on statin therapy; intolerant to statin therapy. We'll start ezetimibe. Lina Contreras MD, FACP, FACC, [facility] Interventional Cardiology Zandra CONTRERAS MD May 05, 2020 13:57
[2020-05-05] MEDS ORDERED: eZETimibe 10 MG (ZETIA) TABLET PO SCH (14:00)
[2020-05-05] MEDS ORDERED: PATIENT MAY USE OWN MEDS, ALL PO SCH (14:00)
--- NOTE | 2020-05-05 14:05 | NUR ---
Patient arrived to room 509 via bed with Mona POLO. s/p cardiac catheterization. procedure insertion site to right groin, mynx in place with gauze and tegaderm. VSS. Will continue to closely monitor.
[2020-05-05] MEDS ORDERED: EZET10TA49 PO (14:55)
--- NOTE | 2020-05-05 14:56 | Discharge Inst-Simple/Standard ---
Discharge Inst-Standard Discharge Medications New, Converted or Re-Newed RX: Transmitted to Pharmacy Patient Instructions/Follow Up Plan of Care/Instructions/FU: Please continue to take your medications as written. Please follow up with your PCP within the next week to follow up this hospital stay. Activity as Tolerated: Yes Discharge Diet: Cardiac Diet Return to The Hospital For: Chest pain, shortness of breath, abdominal pain, fever, if you feel you are getting worse. Planned Outpatient Orders/Ref. Pneu Vac Indicated: Yes MYA BRAND MD May 05, 2020 14:56
--- NOTE | 2020-05-05 17:00 | NUR ---
IV removed by this nurse, tip intact. Entire discharge packet discussed with patient, patient and i discussed his new medication, restrictions and incision care. Patient advised to follow up with his primary care provider within a week of discharge. VSS. Patient up ad chaz in his room, with no difficulties. puncture incision site from cardiac catheterization remains soft at the site, the dressing is clean, dry and intact. Patient states that his friend is on her way here to pick him up, patient will press call light when his ride arrives so I can walk patient to entrance.
--- NOTE | 2020-05-05 18:05 | NUR ---
Patient leaving room 509 with Angel [facility]. Angel walked patient to entrance where he got in a private vehicle with his ride.
[2020-05-06] MEDS ORDERED: ASPIRIN E.C. 81 MG (ECOTRIN) TAB PO SCH (09:00)
[2020-05-06] MEDS ORDERED: CLOPIDOGREL 75 MG (PLAVIX) TABLET PO SCH (09:00)
== END 2020-05-05 18:05 | disposition home or self-care (01) ==
LOC: EDUNIT# 16:56 → ER 16:57 → 4TH 18:44 → CSD 05-05 14:02
PROVIDERS: ADMIT Internal Medicine; ATTEND Internal Medicine
DX: I25.118 Atherosclerotic heart disease of native coronary artery with other forms of angina pectoris (principal); E78.49 Other hyperlipidemia; Z79.82 Long term (current) use of aspirin; Z88.0 Allergy status to penicillin; Z88.2 Allergy status to sulfonamides; Z88.5 Allergy status to narcotic agent; Z88.8 Allergy status to other drugs, medicaments and biological substances; Z88.1 Allergy status to other antibiotic agents; Z87.442 Personal history of urinary calculi; Z95.5 Presence of coronary angioplasty implant and graft; Z83.3 Family history of diabetes mellitus; Z82.49 Family history of ischemic heart disease and other diseases of the circulatory system
CPT/HCPCS: 71045; 80053; 80061; 83735; 83874; 83880; 84484 ×2; 85025; 85610; 85730; 93005 ×2; 93041; 93306; 93458; 99284; C1760; C1894; G0378; G0480; 36415; 80320; 96372; 96374